=== PATIENT | female | born 1955 | race Caucasian/White ===

== ENCOUNTER 2024-01-23 11:29 | Outpatient (CLI) | payer MEDICARE, MEDICAID, SELFPAY ==
--- NOTE | 2024-01-23 11:38 | ECG_ITS ---
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 Measurements Intervals [place] Rate: 71 P: -62 MN: 114 QRS: 25 QRSD: 82 T: 30 QT: 389 QTc: 424 Interpretive Statements PROBABLE SINUS RHYTHM No previous ECG available for comparison Electronically Signed On 01-23-2024 14:16:08 CDT by Jack Beckett M.D.
[2024-01-23 12:03] LABS: Hematocrit 25.9 % (37.0-47.0); Hemoglobin 7.1 g/dL (12.0-15.0); Mean Corpuscular HGB Conc 27.4 g/dl (32-36); Mean Corpuscular Hemoglobin 23.1 pg (26-34); Mean Corpuscular Volume 84.1 fl (80-100); Platelet Count Result 279 k/mm3 (150-375); Red Blood Count 3.08 M/mm3 (4.2-5.4)
[2024-01-23 12:10] LABS: Appearance Urine Clear (Clear); Bacteria Urine None Seen /hpf; Bilirubin Urine Negative (Negative); Blood Urine Negative (Negative); Color Urine Yellow (Yellow); Glucose Urine UA Negative (Negative); Ketones Urine Negative (Negative); Leukocyte Esterase Ur Trace LEU/UL (Negative); Nitrate Urine Negative (Negative); Protein Urine Negative (Negative); RBC Urine 0-2 /hpf (0-2); Specific Grav Ur 1.014 (1.001-1.035); Squamous Epithelial Cell Urine Occasional /hpf (Few); WBC Urine 0-5 /hpf (0-3)
[2024-01-23 12:12] LABS: Prothrombin Time 13.9 Seconds (11.1-14.7)
[2024-01-23 12:12] LABS: Add Urine Microscopic? YES
[2024-01-23 12:13] LABS: Partial Thromboplastin Time 22.2 Seconds (22.3-36.8)
[2024-01-23 12:15] LABS: Anion Gap 6 mmol/L (4-12); Blood Urea Nitrogen 16 mg/dL (7-17); Calcium 9.2 mg/dL (8.4-10.2); Carbon Dioxide 28 mmol/L (22-30); Chloride 101 mmol/L (98-107); Estimated Glomerular Filt Rate 49; Glucose 102 mg/dL (65-110); Potassium 4.2 mmol/L (3.4-5.0); Sodium 135 mmol/L (137-145)
== END 2024-01-23 11:30 | disposition home or self-care (01) ==
LOC: ANHSURGERY 11:32
PROVIDERS: Visit Provider Neurological Surgery
DX: Z01.818 Encounter for other preprocedural examination (principal); M43.12 Spondylolisthesis, cervical region; I10 Essential (primary) hypertension
CPT/HCPCS: 36415; 80048; 81001; 81003; 85027; 85610; 85730; 86850; 86900; 86901; 93005

== ENCOUNTER 2024-05-29 12:35 | Outpatient (CLI) | payer MEDICARE, MEDICAID, SELFPAY ==
--- NOTE | ~2024-05-29 | XR_ITS ---
XR chest 2V Ordering provider: Sydney Farmer MD History: 69 years Female with . M43.12 - Spondylolisthesis, cervical region HX RU LOBE NODUL . Comparison: None. FINDINGS: MEDIASTINUM: The cardiac silhouette is not enlarged. LUNGS: No infiltrates, effusions or pneumothorax. OTHER: No free air under the diaphragm. Compression fracture is seen in T10 with loss of height of ab out 80%. Degenerative changes of the spine. IMPRESSION: No acute cardiopulmonary pathology. Reviewed, dictated and finalized at location A.
[2024-05-29 13:28] LABS: Partial Thromboplastin Time 23.9 Seconds (22.3-36.8)
[2024-05-29 13:30] LABS: Anion Gap 11 mmol/L (4-12); Blood Urea Nitrogen 24 mg/dL (7-17); Calcium 9.6 mg/dL (8.4-10.2); Carbon Dioxide 27 mmol/L (22-30); Chloride 96 mmol/L (98-107); Estimated Glomerular Filt Rate 37; Glucose 138 mg/dL (65-110); Potassium 4.3 mmol/L (3.4-5.0); Sodium 134 mmol/L (137-145)
[2024-05-29 13:31] LABS: Add Urine Microscopic? YES; Appearance Urine Cloudy (Clear); Bacteria Urine Rare /hpf; Bilirubin Urine Negative (Negative); Blood Urine Negative (Negative); Color Urine Yellow (Yellow); Glucose Urine UA Negative (Negative); Ketones Urine Negative (Negative); Leukocyte Esterase Ur 1+ LEU/UL (Negative); Need Manual Microscopic Reviewed; Nitrate Urine Negative (Negative); Protein Urine Trace mg/dL (Negative); RBC Urine 0-2 /hpf (0-2); Specific Grav Ur 1.013 (1.001-1.035); Squamous Epithelial Cell Urine Many /hpf (Few); Urobilinogen Urine 0.2 mg/dL (<2.0); WBC Urine 21-50 /hpf (0-3); pH Urine 5.5 (5.0-9.0)
== END 2024-05-29 12:36 | disposition home or self-care (01) ==
PROVIDERS: Visit Provider Neurological Surgery
DX: M43.12 Spondylolisthesis, cervical region (principal); Z01.818 Encounter for other preprocedural examination
CPT/HCPCS: 36415; 71046; 80048; 81001; 85610; 85730; 86850; 86900; 86901; 87086

== ENCOUNTER 2024-06-04 12:06 | Inpatient (IN) | payer MEDICARE, MEDICAID, SELFPAY ==
[2024-05-28 13:30] VITALS: BMI 35.5
--- NOTE | 2024-05-28 13:32 | PC.NURSE ---
Report to the Outpatient Waiting Room, entrance under the green pavilion located off [facility], at time _0800_ on date _[id number]_. Planned Procedure Time: _1000_.? Time changes happen often and if your time is changed the preop area will call you the afternoon before. - You and your visitor will be asked to self-screen and do not enter if you have any COVID symptoms. Please call surgeon if you need to reschedule. - A mask is optional within the hospital at this time. Patients may have clear liquids (water, carbonated beverages, clear teas, apple juice) until 3 hours prior to surgery with a maximum of 20 ounces. - No food from midnight until time of surgery and no smoking Take only the following medications with a SIP of water on the morning of surgery: ___Metoprolol, Fluoxetine and if needed Tramadol DO NOT STOP ANY OF YOUR OTHER PRESCRIPTION MEDICATIONS PRIOR TO SURGERY EXCEPT THE FOLLOWING Medications to discontinue per physician __All vitamins Date to take last hrtw____[id number] Please no make-up, nail mongolian, hairspray, perfume, deodorant, or body powder the day of surgery.? No jewelry (including any body piercings) or valuables the day of surgery, leave them at home.? Please take a shower or bath the night before, or the morning of, surgery with an antibacterial soap.? Wear comfortable, loose fitting clothing.? - Jewelry must be removed prior to entering the operating room.? Rings and piercings that are not removed may be cut off. - The hospital will not accept responsibility for valuables.? - Please leave all valuables, including medications, at home the day of surgery. If you are going home after surgery, a licensed local delivery driver must drive you home.? - NO public transportation without another adult if you receive anesthesia. - We recommend that an adult stay with you for 24 hours following discharge. - We also recommend that you do not drive, make important decision, drink alcoholic beverages, or take any drugs that were not prescribed by your health care provider for at least 24 hours after your discharge time. Follow any additional instructions given to you from your surgeon. Telephone instructions given to __Ernestina__and asked if any additional questions and then verbalized understanding. Patient advised to call surgeon office or pre surgery nurse liaison [phone] if any additional questions.
--- NOTE | 2024-06-03 17:59 | WPDANESEPP ---
Anes - Eval Pre Procedure Procedure: Operation Date: 06/04/24 07:30 Proposed Procedures p Posterior Cervical Decompression and Fusion C3-C7 - Sydney Farmer MD Date/Time: 06/03/24 17:59 Pre Op Diagnosis: cervical myelopathy,stenosis,spondylolisthesis Patient Data Age: 69 Gender: F Height: 1.57 m Weight: 88.2 kg Allergies Allergy/AdvReac Type Severity Reaction Status Date / Time celecoxib [From Celebrex] Allergy Mild Hives Verified 05/28/24 13:17 gabapentin AdvReac Severe Dizziness Verified 05/28/24 13:17 Home Medications Medication Instructions Recorded Confirmed Type allopurinol 100 mg tablet 100 mg PO DAILY 02/08/23 05/28/24 History atorvastatin 10 mg tablet 10 mg PO DAILY 02/08/23 05/28/24 History fluoxetine 20 mg capsule 60 mg PO DAILY 02/08/23 05/28/24 History lisinopril 10 mg tablet 10 mg PO DAILY 02/08/23 05/28/24 History metoprolol succinate 25 mg 25 mg PO DAILY 02/08/23 05/28/24 History tablet,extended release 24 hr omeprazole 20 mg capsule,delayed 20 mg PO EVERY OTHER DAY 02/08/23 05/28/24 History release cetirizine 10 mg capsule (Zyrtec) 10 mg PO DAILY PRN Congestion 06/22/23 05/28/24 History montelukast 10 mg tablet 10 mg PO HS 01/21/24 05/28/24 History tramadol 50 mg tablet 50 mg PO BID PRN Pain 01/21/24 05/28/24 History cholecalciferol (vitamin D3) 25 25 mcg PO WEEKLY 05/28/24 05/28/24 History mcg (1,000 unit) tablet cyanocobalamin (vitamin B-12) 100 100 mcg MONTHLY 05/28/24 05/28/24 History mcg/mL injection solution ferrous sulfate 324 mg (65 mg 324 mg PO DAILY 05/28/24 05/28/24 History iron) tablet,delayed release Patient hx anesthesia problems: none Family hx anesthesia problems: none Results Review: All pre-operative results and documents have been reviewed as part of the pre-operative evaluation. [facility] Past Medical History Medical History (Updated 06/03/24 @ 18:03 by Misael Cohen Jr., GARMENT CUTTER) Anemia Arthritis Cervical myelopathy COPD (chronic obstructive pulmonary disease) Crohn's colitis Depression GERD (gastroesophageal reflux disease) Gout History of smoking Hypertension Lumbago Lumbar stenosis Osteoporosis Spondylolisthesis, cervical region Family History Family History Mother Cancer ovarian cancer Grandparent Diabetes mellitus Father Hypertension Heart disease Cerebrovascular accident Sibling Heart disease Social History Social History Social History: Ernestina is very confident filling out medical forms. In the last 12 months she has received assistance from an organization or program with paying utility bills and care for elder or disabled. She does have an advance directive or living will. She is . The date of her last physical exam was October 2022. She is not sexually active and her control method was tubal ligation. The date of her last PAP test was 12/20/22 with normal results. Her last mammogram at [facility] was normal. She does not experience menopausal symptoms. She reports having a blood transfusion 02/07/2014. She denies currently using recreational or street drugs. Denies ever giving self street drugs with a needle. Denies eating a healthy diet and exercising regularly. Denies having frequent falls. Her current caffeine intake consists of 4 cups of cola/soda per day. Smoking packs per day: 1 Smoking cigarettes per day: 20.0 Years smoked: 52 Smoking pack-years: 52.00 Smoking status: Former smoker Tobacco type: cigarettes Second hand tobacco smoke exposure: Yes Smoking end date: 01/27/24 Additional smoking assessment comments: STATES CUTTING BACK AND NOT QUITE A FULL PACK/DAY NOW Alcohol intake: never Substance use: never Substance use type: does not use Do You Feel Safe in your Home?: Yes Lack of Transportation: No Lack of Food: Never True Current Hous
[2024-06-04] VITALS (15 sets, daily range): BP systolic 114–152; BP diastolic 45–80; PULSE 68–76; RESP 10–18; TEMP 35.3–36.4; O2SAT 93–100; BMI 36.3
--- NOTE | ~2024-06-04 | XR_ITS ---
EXAMINATION: XR fluoroscopy no charge DATE: 06/04/2024 11:46 INDICATION: Posterior cervical decompression and C3-C7 posterior spinal fusion TECHNIQUE: 2 fluoroscopic images of the cervical spine were obtained in the frontal and lateral proje ctions during procedure performed by Dr. Farmer. Radiologist was not present for the imaging or proc edure. The amount of fluoroscopy time used during this procedure was 0.3 minutes. Total DAP was 0.688 Gycm^2 COMPARISON: None. FINDINGS: C3-C6 laminectomies. Instrumented lower cervical posterior spinal fusion with bilateral vertical brady and lateral mass screw fixation extending from C3-C7 on the left and C4-C7 on the right. Likely endot renee tube projects of the cervical and upper thoracic trachea with distal tip collimated beyond th e margin of the field of imaging. IMPRESSION: 1. Fluoroscopy utilized during mid to lower cervical posterior decompression with instrumented C3-C7 posterior spinal fusion. See procedure note for further detail. Reviewed, dictated and finalized at location A. IMPRESSION: 1. Fluoroscopy utilized during mid to lower cervical posterior decompression wi th instrumented C3-C7 posterior spinal fusion. See procedure note for further d etail.
--- NOTE | 2024-06-04 06:37 | WPDANESEPPF ---
Anes - Initial Pre Proc Eval Procedure: Operation Date: 06/04/24 07:30 Proposed Procedures p Posterior Cervical Decompression and Fusion C3-C7 - Sydney Farmer MD Date/Time: 06/04/24 06:37 Surgeon: Sydney Farmer MD Pre Op Diagnosis: cervical myelopathy,stenosis,spondylolisthesis Patient Data Age: 69 Gender: F Height: 1.57 m Weight: 88.2 kg Allergies Allergy/AdvReac Type Severity Reaction Status Date / Time celecoxib [From Celebrex] Allergy Mild Hives Verified 05/28/24 13:17 gabapentin AdvReac Severe Dizziness Verified 05/28/24 13:17 Home Medications Medication Instructions Recorded Confirmed Type allopurinol 100 mg tablet 100 mg PO DAILY 02/08/23 05/28/24 History atorvastatin 10 mg tablet 10 mg PO DAILY 02/08/23 05/28/24 History fluoxetine 20 mg capsule 60 mg PO DAILY 02/08/23 05/28/24 History lisinopril 10 mg tablet 10 mg PO DAILY 02/08/23 05/28/24 History metoprolol succinate 25 mg 25 mg PO DAILY 02/08/23 05/28/24 History tablet,extended release 24 hr omeprazole 20 mg capsule,delayed 20 mg PO EVERY OTHER DAY 02/08/23 05/28/24 History release cetirizine 10 mg capsule (Zyrtec) 10 mg PO DAILY PRN Congestion 06/22/23 05/28/24 History montelukast 10 mg tablet 10 mg PO HS 01/21/24 05/28/24 History tramadol 50 mg tablet 50 mg PO BID PRN Pain 01/21/24 05/28/24 History cholecalciferol (vitamin D3) 25 25 mcg PO WEEKLY 05/28/24 05/28/24 History mcg (1,000 unit) tablet cyanocobalamin (vitamin B-12) 100 100 mcg MONTHLY 05/28/24 05/28/24 History mcg/mL injection solution ferrous sulfate 324 mg (65 mg 324 mg PO DAILY 05/28/24 05/28/24 History iron) tablet,delayed release Patient hx anesthesia problems: none Family hx anesthesia problems: none Results Review: All pre-operative results and documents have been reviewed as part of the pre-operative evaluation. [facility] Past Medical History Medical History Anemia Arthritis Cervical myelopathy COPD (chronic obstructive pulmonary disease) Crohn's colitis Depression GERD (gastroesophageal reflux disease) Gout History of smoking Hypertension Lumbago Lumbar stenosis Osteoporosis Spondylolisthesis, cervical region Family History Family History Mother Cancer ovarian cancer Grandparent Diabetes mellitus Father Hypertension Heart disease Cerebrovascular accident Sibling Heart disease Social History Social History Social History: Ernestina is very confident filling out medical forms. In the last 12 months she has received assistance from an organization or program with paying utility bills and care for elder or disabled. She does have an advance directive or living will. She is . The date of her last physical exam was October 2022. She is not sexually active and her control method was tubal ligation. The date of her last PAP test was 12/20/22 with normal results. Her last mammogram at [facility] was normal. She does not experience menopausal symptoms. She reports having a blood transfusion 02/07/2014. She denies currently using recreational or street drugs. Denies ever giving self street drugs with a needle. Denies eating a healthy diet and exercising regularly. Denies having frequent falls. Her current caffeine intake consists of 4 cups of cola/soda per day. Smoking packs per day: 1 Smoking cigarettes per day: 20.0 Years smoked: 52 Smoking pack-years: 52.00 Smoking status: Former smoker Tobacco type: cigarettes Second hand tobacco smoke exposure: Yes Smoking end date: 01/27/24 Additional smoking assessment comments: STATES CUTTING BACK AND NOT QUITE A FULL PACK/DAY NOW Alcohol intake: never Substance use: never Substance use type: does not use Do You Feel Safe in your Home?: Yes Lack of Transportation: No Lack of Food:
--- NOTE | 2024-06-04 07:16 | PM.IMHP ---
H&P: HPI History of Present Illness Date/Time: 06/04/24 07:16 Chief Complaint: cervical myelopathy Narrative: From 11/14: Ms. Sullivan is a 68-year-old female with history of ulcerative colitis, osteoporosis, hypertension, and hyperlipidemia who returns for follow-up of back and leg pain.? I had previously scheduled her for laminectomies L4-5 and L5-S1; however, in the fall, there is concern for a possible gynecologic malignancy given her development of postmenopausal bleeding.? She had AD and C which returned negative for malignancy, and she is following with more regular Pap smears for detection of this.? She did not require any chemo or radiation.? She also has had bilateral cataract surgery and has had 2 teeth removed due to infection.? She has been cleared by her other physicians to have her back surgery, so she returns today for follow-up. ? She describes pain in the lower back that radiates down the lateral aspects of the legs into the top and side of the foot, worse on the right side, which has now become constant in nature.? This worsens with standing and walking.? She has some paresthesias in the toes in particular.? She feels a generalized sense weakness.? She also reports some worsening pain in the neck that radiates down the left arm into the ulnar aspect of the hand as well as in the right arm to about the elbow.? She has numbness in the left hand and has noticed worsening with gripping objects and dropping things.? She reports some worsening balance issues. She attempted physical therapy last year which worsened her symptoms. ? She notably has been able to cut down quite a bit on her smoking and is now smoking 1 pack of cigarettes every 2-3 weeks.? She is continuing to work toward smoking cessation.? She had a recent DEXA scan that showed improvement in her osteoporosis to osteopenia.? She otherwise denies any changes in her medical issues. She states her mainframe analyst, Dr. Saleh at [facility], has cleared her for surgery. From 12/19: Since her last visit, she describes worsening issues with her balance. She has pain that radiates into the shoulders bilaterally, worse on the left side. She has numbness in her hands in a generalized sense of weakness. She has difficulty with gripping objects and dropping things. She denies any bowel or bladder changes. She has been able to essentially completely quit smoking. Review of Systems Review of Systems: All systems reviewed & are unremarkable except as noted in HPI and below PMFSH Past Medical History Medical History Anemia Arthritis Cervical myelopathy COPD (chronic obstructive pulmonary disease) Crohn's colitis Depression GERD (gastroesophageal reflux disease) Gout History of smoking Hypertension Lumbago Lumbar stenosis Osteoporosis Spondylolisthesis, cervical region Family History Family History Mother Cancer ovarian cancer Grandparent Diabetes mellitus Father Hypertension Heart disease Cerebrovascular accident Sibling Heart disease Social History Social History Social History: Ernestina is very confident filling out medical forms. In the last 12 months she has received assistance from an organization or program with paying utility bills and care for elder or disabled. She does have an advance directive or living will. She is . The date of her last physical exam was October 2022. She is not sexually active and her control method was tubal ligation. The date of her last PAP test was 12/20/22 with normal results. Her last mammogram at [facility] was normal. She does not experience menopausal symptoms. She reports having a blood transfusion 02/07/2014. She denies currently using recreational or street drugs. Denies ever giving self street drugs with a needle. Denies eating a healthy
--- NOTE | 2024-06-04 07:18 | WPDHPUPDATE1 ---
History and Physical Update Update Date/Time: 06/04/24 07:18 History and Physical has been reviewed, including an updated exam of the patient. There are NO changes in the patient's condition. Risks, benefits, and alternatives have been discussed and questions answered. Patient agrees to proceed with procedure.
[2024-06-04] MEDS: LACTATED RINGERS 1,000 ML 30 ML IV CONT (07:26)
[2024-06-04] MEDS: ceFAZolin 2 GM/D5W 50 ML 2 GM/50 ML BAG IVPB ×3 (07:41→21:17)
[2024-06-04] MEDS: BUPIVACAINE/EPINEPHRINE 0.5% 50 ML VIAL 20 ML INFILTRATE (08:41)
--- NOTE | 2024-06-04 11:23 | P.OPB_ITS ---
Procedure Note - Brief Procedure Note - Brief Date of procedure: 06/04/24 cervical myelopathy,stenosis,spondylolisthesis Post-op diagnosis: Same Procedure performed: Posterior cervical arthrodesis C3-7 Cervical laminectomies C3, C4, C5, and C6 Surgeon: Sydney Farmer MD Arbor Press Operator: Yeny Anesthesia: GETA Findings: Screw on left at C3 was left out due to poor purchase. Otherwise uncomplicated surgery Estimated blood loss (mL): 200 Drains: Yes Packing: No Pathology: None sent Complications: None Condition: Stable Disposition: PACU
[2024-06-04] MEDS: fentaNYL CITRATE INJ (*CRX) 100 MCG/2 ML VIAL 25 MCG IV PUSH ×4 (11:42→12:04)
--- NOTE | 2024-06-04 12:50 | ADMGEN ---
This patient, Ernestina Sullivan, was admitted to 2 Medical Room 242-. Patient/family oriented to hospital policies and general routines including ID bracelet, bed and alarms, visiting hours, pain management, procedures, bathroom and other care routines, personal items, smoking policy, room service/diet, and visiting hours. Information on how to activate the Rapid Response Team has been discussed. Patient/Family are encouraged to report perceived risks to care and to ask questions if they do not understand what they are told or what they should do.
[2024-06-04] MEDS: SODIUM CHLORIDE 0.9% IV 1,000 ML 100 ML IV CONT (13:49)
[2024-06-04] MEDS: ACETAMINOPHEN 500 MG TABLET 1000 MG PO ×3 (13:50→23:20)
[2024-06-04] MEDS: oxyCODONE HCL (*CRX) 5 MG TAB IR 10 MG PO (16:19)
--- NOTE | 2024-06-04 18:21 | W.PM.PROC2 ---
Procedure Note - Detailed Date of Procedure 06/04/24 Pre-op Diagnosis cervical myelopathy,stenosis,spondylolisthesis Post-op Diagnosis Same Procedure Performed 1. C3, C4, C5, C6, and C7 lateral mass instrumentation 2. C3-4, C4-5, C5-6, and C6-7 arthrodesis with autograft and allograft 3. C3, C4, C5, and C6 laminectomies 4. Use of C-arm for fluoroscopy Surgeon Sydney Farmer MD Key Attendant Yeny Anesthesia General Description of Procedure The patient was brought to the operating room where endotracheal anesthesia was induced. The [place] headholder was applied, and the patient was transferred to the operating table in the prone position. The head was secured to the bed. All pressure points were padded. The C-arm was used to evaluate the planned incision. The planned surgical site was prepped and draped in usual sterile fashion. Time out was conducted, and local anesthesia was injected. A 10-blade scalpel was used to make the incision. The subcutaneous tissue was dissected with the bovie until the spinous processes were encountered. Self-retaining retractors were placed. A clamp was placed on a spinous process which was confirmed to be the C3 level with the C-arm. The incision was extended inferiorly to better expose down to the inferior level. The muscles were elevated in a subperiosteal fashion to expose the laminae and lateral masses of C3 through C7 bilaterally. The facet joints were exposed and defined with the bovie, and the oversize load pilot escort holes for the lateral mass screws were created with the high-speed drill. On the right side, the hand drill was used to drill through the lateral mass to a depth of 12mm at C3. The trajectory was palpated with a ball-tip probe to ensure where were no breeches in the bone. The drill was then lengthened to 14mm. The 3.0mm tap was then passes. This was repeated at C4, C5, C6, and C7. Bone wax was placed over the screw holes. This was then repeated on the left side at C3, C4, C5, C6, and C7. No bone breaches were noted at the depth of 14mm. We then turned our attention to the laminectomies. The high-speed drill was used to create a trough through the laminae of C3, C4, C5, and C6. The posterior elements were elevated with a Leksell and Kerpaulieon rongeurs, and the bone was passed off to be morselized for autograft. The ligamentum flavum was elevated with the bone. Small residual pieces of ligamentum and bone were removed with the kerrison. The facet joints were decorticated with the drill.? We ensured hemostasis with the bipolar and Floseal. We next turned our attention to the lateral mass screws. The screw trajectories were palpated again with the balltip probe. 14 x 3.5mm screws were placed at each level bilaterally. However, the screw on the left side at C3 broke out of the tract, so this was ultimately left out. A 60mm brady was placed on the right, and a 50mm brady was placed on the left. The set screws were placed which were final tightened. The area was copiously irrigated. The bone and facets were decorticated. Autograft was placed lateral to the screws bilaterally and into the facets. A hemovac drain was placed in the epidural space and tunneled inferiorly. The muscle was approximated with 0 vicryl. The fascia was closed with 0 vicryl as well. The dermis was closed with 2-0 and 3-0 vicryl. The skin was closed with running 3-0 nylon. The drain was secured with a nylon as well. Sterile dressings were placed. The patient was then removed from the [place] headholder and returned supine. The patient was extubated and transferred to the PACU in stable condition. Billing codes: 59204, 62935, 55165 x 3, 21094 Estimated Blood Loss 200 Drains Yes Packing No Pathology None sent Complications None Condition Stable Disposition PACU [facility] Billing Surgery - Charge Forward: Surgery Billing
[2024-06-04] MEDS: DOCUSATE SODIUM 100 MG CAPSULE PO (21:15)
[2024-06-04] MEDS: MONTELUKAST SODIUM 10 MG TABLET PO (21:15)
[2024-06-05] VITALS (9 sets, daily range): BP systolic 108–145; BP diastolic 44–57; PULSE 66–74; RESP 16–20; TEMP 36.4–36.6; O2SAT 92–98
[2024-06-05] MEDS: SODIUM CHLORIDE 0.9% IV 1,000 ML 100 ML IV CONT (00:45)
[2024-06-05] MEDS: ceFAZolin 2 GM/D5W 50 ML 2 GM/50 ML BAG IVPB ×2 (05:30→13:28)
[2024-06-05] MEDS: ACETAMINOPHEN 500 MG TABLET 1000 MG PO ×3 (05:33→17:11)
[2024-06-05] MEDS: oxyCODONE HCL (*CRX) 5 MG TAB IR 10 MG PO (08:12)
[2024-06-05] MEDS: CYCLOBENZAPRINE HCL 10 MG TABLET PO (08:12)
[2024-06-05] MEDS: ATORVASTATIN 10 MG TABLET PO (08:14)
[2024-06-05] MEDS: lisinopriL 10 MG TABLET PO (08:14)
[2024-06-05] MEDS: allopurinoL 100 MG TABLET PO (08:14)
[2024-06-05] MEDS: PANTOPRAZOLE 40 MG TABLET PO (08:15)
[2024-06-05] MEDS: FLUoxetine HCL 20 MG CAPSULE 60 MG PO (08:15)
[2024-06-05] MEDS: DOCUSATE SODIUM 100 MG CAPSULE PO ×2 (08:15→20:24)
[2024-06-05] MEDS: METOPROLOL SUCCINATE EXT REL 25 MG TABCR PO (08:15)
--- NOTE | 2024-06-05 12:59 | WPDNEUROSGPN ---
Progress Note: A&P Assessment and Plan (1) Status post cervical arthrodesis: Code(s): Z98.1 - Arthrodesis status Status: Acute Plan -Remove hemovac drain today -Care Coordination setting up home health at her request -Anticipate discharge home tomorrow morning -Ok to shower tomorrow and get incision wet. Dressing can come off tomorrow too -Activity and wound care precautions reviewed at bedside Subjective Date/time seen: 06/05/24 12:59 Interval history: Doing very well without any significant neck pain. She reports pressure in her shoulders after sitting up for a long period of time. She reports improved strength and sensation in her hands. She was able to ambulate in the halls and also notes that she does not have the back and leg pain she normally experiences when walking. She is tolerating PO and denies any other complaints. Review of Systems Review of Systems: All systems reviewed & are unremarkable except as noted in HPI and below Exam Narrative: AOx4 Good strength in arms and legs Sensation intact Dressing c/d/i Objective Data Vital Signs Vital Signs: Vital Signs - 24 hr 06/04/24 13:00 06/04/24 13:18 06/04/24 14:18 Temperature 96.3 F L 95.7 F L Pulse Rate 74 74 Respiratory Rate 16 18 18 Blood Pressure 147/59 H Pulse Oximetry 95 93 93 Oxygen Delivery Room Air 06/04/24 14:58 06/04/24 15:39 06/04/24 18:18 Temperature 95.6 F L 97.5 F L Pulse Rate 74 74 Respiratory Rate 18 18 Blood Pressure 143/55 H 123/63 Pulse Oximetry 97 98 Oxygen Delivery Room Air 06/04/24 20:27 06/04/24 20:00 06/05/24 00:19 Temperature 97.6 F 97.7 F Pulse Rate 68 66 Respiratory Rate 16 16 Blood Pressure 134/54 L 113/57 L Pulse Oximetry 98 92 Oxygen Delivery Room Air 06/05/24 05:37 06/05/24 08:15 06/05/24 08:17 Temperature 97.6 F Pulse Rate 67 68 Respiratory Rate 16 16 Blood Pressure 108/51 L Pulse Oximetry 92 92 Oxygen Delivery Room Air 06/05/24 10:57 Temperature 97.6 F Pulse Rate 66 Respiratory Rate 19 Blood Pressure 127/51 L Pulse Oximetry 98 Oxygen Delivery Intake/Output Intake/Output: Intake & Output 06/02/24 06/03/24 06/04/24 06/05/24 23:59 23:59 23:59 23:59 Intake Total 836.7 1910.0 Output Total 95 Balance 741.7 1910.0 Meds/Results Medications: Active Medications Generic Name Dose Route Start Last Admin Trade Name Freq PRN Reason Stop Dose Admin Acetaminophen 1,000 mg 06/04/24 12:00 06/05/24 11:35 Acetaminophen 500 Mg Tablet PO 1,000 mg Q6HR EDWIN Administration Al Hydrox/Mg Hydrox/Simethicone 20 ml 06/04/24 11:18 Mag Hydrox/Al Hydrox/Simeth 30 Ml Udc PO Q4H PRN Indigestion/Heartburn Allopurinol 100 mg 06/05/24 09:00 06/05/24 08:14 Allopurinol 100 Mg Tablet PO 100 mg DAILY EDWIN Administration Atorvastatin Calcium 10 mg 06/05/24 09:00 06/05/24 08:14 Atorvastatin 10 Mg Tablet PO 10 mg DAILY EDWIN Administration Bisacodyl 10 mg 06/04/24 11:18 Bisacodyl 10 Mg Suppository RECTAL DAILY PRN Constipation Cyclobenzaprine HCl 10 mg 06/04/24 11:18 06/05/24 08:12 Cyclobenzaprine Hcl 10 Mg Tablet PO 10 mg TID PRN Administration Muscle Spasms Docusate Sodium 100 mg 06/04/24 21:00 06/05/24 08:15 Docusate Sodium 100 Mg Capsule PO 100 mg Q12HR EDWIN Administration Ferrous Sulfate 324 mg 06/05/24 08:00 06/05/24 08:16 Ferrous Sulfate [address] PO Not Given DAILY@0800 EDWIN Fluoxetine HCl 60 mg 06/05/24 09:00 06/05/24 08:15 Fluoxetine Hcl 20 Mg Capsule PO 60 mg DAILY EDWIN Administration Cefazolin Sodium 2 gm in 50 mls @ 100 mls/hr 06/04/24 14:00 06/05/24 06:00 Ancef 2 Gm/D5w 50 Ml IVPB Infused Q8HR EDWIN Infusion Lisinopril 10 mg 06/05/24 09:00 06/05/24 08:14 Lisinopril 10 Mg Tablet PO 10 mg DAILY EDWIN Administration Loratadine 10 mg 06/04/24 11:21 Loratadine 10 Mg Tablet PO DAILY PRN
[2024-06-05] MEDS: MONTELUKAST SODIUM 10 MG TABLET PO (20:24)
[2024-06-06] VITALS (7 sets, daily range): BP systolic 115–135; BP diastolic 34–53; PULSE 65–73; RESP 12–16; TEMP 36.2–37.1; O2SAT 92–97
[2024-06-06] MEDS: ACETAMINOPHEN 500 MG TABLET 1000 MG PO ×5 (00:17→23:54)
--- OUTSIDE RECORDS SUMMARY | 2024-06-06 05:11 | XMS_ITS | Clinical Summary ---
Author Name Unknown Address [address] [place] [address] Phone Organization [facility] Address [address] [place] [address] Phone Care Team Providers Care Meat Puller Name Role Phone HOLGER SPORTS PHYSIOLOGIST, LUIZ E Unavailable [phone] OD, SHERRIE Unavailable [phone] CORBY TRANSFORMER MAKER-C, MAYA A Unavailable [phone] MARSHALL TABARES, SHELBY Unavailable [phone] VIBHA WHLAKESHA-BC, EDVIN A Unavailable [phone] FRANSISCO TABARES, MEG Leggett Primary Care Provider [phone] LEXY TABARES, ALLY Miguel Unavailable [phone] Reason for Visit and Chief Complaint The Chief Complaint is: Patient presents for B12 injection, given with patient's supply Problems Includes: Problems addressed during this encounter and other active Problems Current Visit Onset Date Resolved Date Provider Conditio n Status Vitamin B12 Deficiency 02/04/2024 KATHIE HALE PA-C Active Past Visits Onset Date Resolved Date Provider Condition Status Postmenopausal Bleeding 06/22/2023 NOEMI CATES MD Active Last Documented On 06/22/2023 4:41PM ; [facility] Note: Unchanged Cervical Stenosis / Stricture 06/22/2023 NOEMI CATES MD Active Last Documented On 06/22/2023 4:41PM ; [facility] Note: Unchanged
--- OUTSIDE RECORDS SUMMARY | 2024-06-06 05:11 | XMS_ITS | Clinical Summary ---
Author Name Unknown Address [address] [place] [address] Phone Organization [facility] Address [address] [place] [address] Phone Care Team Providers Care Valuation Consultant Name Role Phone HOLGER CROWDER, LUIZ Leggett Unavailable [phone] OD, SHERRIE Unavailable [phone] CORBY CAUL FAT PULLER-C, MAYA King Unavailable [phone] MARSHALL TABARES, SHELBY Unavailable [phone] VIBHA LAKESHA-BC, EDVIN King Unavailable [phone] FRANSISCO TABARES, MEG Leggett Primary Care Provider [phone] LEXY TABARES, ALLY Miguel Unavailable [phone] Reason for Visit and Chief Complaint The Chief Complaint is: Patient c/o fatigue and dizziness over the past week. She states that all she wants to do is sleep. She reports that her arms feel limp . Patient's HgB was 7.1, which was toolow for back surgery with Dr. Farmer Problems Includes: Problems addressed during this encounter and other active Problems Current Visit Onset Date Resolved Date Provider Conditio n Status Iron Deficiency Anemia 02/22/2023 PELON IN A CORBY CAUL FAT PULLER-C Active Past Visits Onset Date Resolved Date Provider Condition Status Vitamin B12 Deficiency 02/04/2024 KATHIE RIVASC Active
--- OUTSIDE RECORDS SUMMARY | 2024-06-06 05:11 | XMS_ITS | Clinical Summary ---
Author Name Unknown Address [address] [place] [address] Phone Organization [facility] Address [address] [place] [address] Phone Care Team Providers Care Vascular Manager Name Role Phone HOLGER CROWDER, LUIZ Leggett Unavailable [phone] OD, SHERRIE Unavailable [phone] CORBY BLANC-C, MAYA King Unavailable [phone] MARSHALL TABARES, SHELBY Unavailable [phone] VIBHA PAYNE-BC, EDVIN King Unavailable [phone] FRANSISCO TABARES, MEG Leggett Primary Care Provider [phone] LEXY TABARES, ALLY Miguel Unavailable [phone] Reason for Visit and Chief Complaint * PHONE CALL Problems Includes: Problems addressed during this encounter and other active Problems Current Visit Onset Date Resolved Date Provider Conditio n Status Spinal Stenosis Cervical 02/22/2023 MAYA BLANC-C Active Past Visits Onset Date Resolved Date Provider Condition Status Vitamin B12 Deficiency 02/04/2024 KATHIE HALE PA-C Active
--- OUTSIDE RECORDS SUMMARY | 2024-06-06 05:11 | XMS_ITS ---
Care Plan - [facility] Created on: June 06, 2024 BROOKLYN MATTHEWS : 1955 Sex: Female Author Name Unknown Address [address] [place] [address] Phone Organization [facility] Address [address] [place] [address] Phone Care Team Providers Care Game Show Host Name Role Phone HOLGER CROWDER, LUIZ E Unavailable [phone] OD, SHERRIE Unavailable [phone] CORBY SET UP TECHNICIAN-C, MAYA A Unavailable [phone] MARSHALL TABARES, SHELBY Unavailable [phone] VIBHA PAYNE-BC, EDVIN King Unavailable [phone] FARNSISCO TABARES, MEG Leggett Primary Care Provider [phone] LEXY TABARES, ALLY Miguel Unavailable [phone]
--- OUTSIDE RECORDS SUMMARY | 2024-06-06 05:11 | XMS_ITS ---
Author Name Unknown Address [address] [place] [address] Phone Organization [facility] Address [address] [place] [address] Phone Care Team Providers Care Scaffolder Name Role Phone HOLGER COMMERCIAL CREDIT SPECIALIST, LUIZ E Unavailable [phone] OD, SHERRIE Unavailable [phone] CORBY ASSEMBLY STOCK SUPERVISOR-C, MAYA A Unavailable [phone] MARSHALL TABARES, SHELBY Unavailable [phone] VIBHA WHLAKESHA-BC, EDVIN A Unavailable +[phone] FRANSISCO TABARES, MEG Leggett Primary Care Provider [phone] LEXY TABARES, ALLY Miguel Unavailable [phone] Reason for Referral Date Encounter Description Provider Reason for Referral 05/25/14 PROBLEM VISIT TESFAYE HDEZ MD Reque st Consultation By Specialist Problems Includes: Active, inactive, and resolved Problems All Visits Onset Date Resolved Date Provider Condition S tatus Vitamin B12 Deficiency 02/04/2024 KATHIE HLAE PA-C Active
--- OUTSIDE RECORDS SUMMARY | 2024-06-06 05:11 | XMS_ITS | Clinical Summary ---
Author Name Unknown Address [address] [place] [address] Phone Organization [facility] Address [address] [place] [address] Phone Care Team Providers Care Pattern Painter Name Role Phone HOLGER CROWDER, LUIZ E Unavailable [phone] OD, SHERRIE Unavailable [phone] CORBY FUND DIRECTOR-C, MAYA A Unavailable [phone] MARSHALL TABARES, SHELBY Unavailable [phone] VIBHA WHLAKESHA-BC, EDVIN A Unavailable +[phone] FRANSISCO TABARES, MEG Leggett Primary Care Provider [phone] LEXY TABARES, ALLY Miguel Unavailable [phone] Reason for Visit and Chief Complaint * PHONE CALL Problems Includes: Problems addressed during this encounter and other active Problems All Visits Onset Date Resolved Date Provider Condition S tatus Vitamin B12 Deficiency 02/04/2024 KATHIE HALE PA-C Active
--- OUTSIDE RECORDS SUMMARY | 2024-06-06 05:11 | XMS_ITS | Clinical Summary ---
Author Name Unknown Address [address] [place] [address] Phone Organization [facility] Address [address] [place] [address] Phone Care Team Providers Care Pre Press Manager Name Role Phone HOLGER TURFGRASS MANAGEMENT PROFESSOR, LUIZ Leggett Unavailable [phone] OD, SHERRIE Unavailable [phone] CORBY CARDIAC/VASCULAR SONOGRAPHER-C, MAYA A Unavailable +[phone] MARSHALL TABARES, SHELBY Unavailable [phone] VIBHA WHLAKESHA-BC, EDVIN A Unavailable +[phone] FRANSISCO TABARES, MEG Leggett Primary Care Provider [phone] LEXY TABARES, ALLY Miguel Unavailable [phone] Reason for Visit and Chief Complaint The Chief Complaint is: Patient states that she has been having allergies for a long time , meaning years, but otc daily antihistamine/flonase doesn't help. She c/o drainage, runny nose, cough Problems Includes: Problems addressed during this encounter and other active Problems All Visits Onset Date Resolved Date Provider Condition S tatus Vitamin B12 Deficiency 02/04/2024 KATHIE HALE PA-C Active
--- OUTSIDE RECORDS SUMMARY | 2024-06-06 05:12 | XMS_ITS ---
Author Name Unknown Organization Unknown [facility] No information ASSESSMENT No information CHIEF COMPLAINT No information MEDICATIONS No information OBJECTIVE DATA No information PHYSICAL EXAMINATION No information TREATMENT PLAN Planned Care Start Date Provider Encounter for Check-up [id number] [facility] PROBLEMS No information RESULTS No information REVIEW OF SYSTEMS No information SUBJECTIVE DATA No information VITAL SIGNS No information
[2024-06-06] MEDS: ENOXAPARIN 40 MG/0.4 ML SYRINGE SUB-Q (08:21)
[2024-06-06] MEDS: DOCUSATE SODIUM 100 MG CAPSULE PO (08:22)
[2024-06-06] MEDS: METOPROLOL SUCCINATE EXT REL 25 MG TABCR PO (08:23)
[2024-06-06] MEDS: lisinopriL 10 MG TABLET PO (08:24)
[2024-06-06] MEDS: ATORVASTATIN 10 MG TABLET PO (08:24)
[2024-06-06] MEDS: allopurinoL 100 MG TABLET PO (08:24)
[2024-06-06] MEDS: FLUoxetine HCL 20 MG CAPSULE 60 MG PO (08:25)
[2024-06-06] MEDS: FERROUS SULFATE 325 MG TABLET DR PO (08:26)
--- NOTE | 2024-06-06 09:11 | PCPTNOTE ---
Attempted to see patient for PT, however patient was eating breakfast.
[2024-06-06 11:51] LABS: Hematocrit 28.6 % (37.0-47.0); Hemoglobin 8.8 g/dL (12.0-15.0)
[2024-06-06] MEDS: MONTELUKAST SODIUM 10 MG TABLET PO (21:17)
[2024-06-07 01:32] VITALS: BP 121/49; PULSE 64; RESP 17; TEMP 36.6; O2SAT 96
[2024-06-07 04:54] VITALS: BP 121/50; PULSE 64; RESP 17; TEMP 36.7; O2SAT 94
[2024-06-07] MEDS: ACETAMINOPHEN 500 MG TABLET 1000 MG PO (06:16)
--- NOTE | 2024-06-07 08:35 | PM.DS ---
DS: Admitting Diagnosis Discharge Date June 07, 2024 Admitting Diagnosis Cervical myelopathy DS: Summary Hospital Course Hospital Course: Ms. Sullivan presented for surgery on June 04; please see the op note for more details. She was transferred to the floor. She worked with therapy. Her drain was removed on POD1. On POD2, she had some dizziness for which a hemoglobin and blood pressure were checked. This resolved without intervention, and she was determined ready for discharge home with home health on POD3. Time Spent with Patient Time attestation: Total time spent providing and/or coordinating discharge services: DS: Data Data Completed and Pending Labs on day of discharge: Labs from last 24 hours 06/06/24 11:44 Hgb 8.8 L Hct 28.6 L Discharge Plan Discharge Patient Disposition: Home Health Service Activity: other - see discharge instructions Diet: as tolerated Wound Care Instructions: follow printed instructions Discharge Instructions: Per Care Coordination: [facility] ([facility]) for physical therapy [phone] they will call you regarding your first visit. *RN please fax D/C orders to [phone]. Discharge Instructions Procedure: Posterior cervical decompression and fusion Your doctor removed bone and ligament to decompress your spinal cord and nerve roots, and then placed hardware to stabilize the spine. Here are some instructions to follow upon discharge from the hospital to help in your recovery. Activity: Unless released by your doctor, you should not return to work. You should rest at home and let your body heal. Taking short walks is encouraged, but avoid strenuous exercise. Do not jog, run, lift weights, bicycle, or participate in other exercises unless specifically allowed by your doctor. Most importantly, avoid lifting objects heavier than a telephone book or a carton of milk as this places a strain on your neck. If possible, avoid household activities that involve lifting such as laundry, grocery shopping, or childcare. Try to arrange for help from friends and family for these activities while your neck heals. You should not drive for 7-10 days, until you are both off of narcotics and your neck has loosened up enough to safely check your blind spots. You may remove your dressing on Sunday and leave it open to air. You may shower starting on post-operative day 2 (Sunday). After showering, lightly dab your wound dry. Do not take baths or sit in a hot tub or pool until approved by your doctor. You may get your incision wet with soap and water, but do not submerge the incision under water. DO NOT SMOKE TOBACCO. Smoking has been proven to interfere with the normal healing of the bones in your neck. Smoking will dramatically reduce the success rate of your surgery. Diet: You can return to your usual diet, unless instructed otherwise by your doctor. Medications: You should resume taking all of your normal medications unless instructed otherwise by your doctor. You may take Tylenol 1000mg every 6 hours as needed for pain. If your pain is still uncontrolled after Tylenol, then take oxycodone. You may also take flexeril for neck pain and muscle spasms every 8 hours. However, you should not take anti-inflammatory medications (such as Motrin, Advil, ibuprofen, naproxen) unless specifically approved by your doctor. These medications can prevent your bones from healing properly after surgery. If you have questions about your normal medications (for example, those prescribed for high blood pressure), you should contact your primary care doctor. You will be given a prescription for pain medications and possibly a laxative, as pain medications can cause constipation. Take the pain medication as instructed. If your pain is not reasonably controlled by the medications, contact your doctor's office. Follow-up appointment: You should already have a follow-up appointment scheduled with
[2024-06-07 09:11] VITALS: PULSE 70
[2024-06-07] MEDS: lisinopriL 10 MG TABLET PO (09:11)
[2024-06-07] MEDS: allopurinoL 100 MG TABLET PO (09:11)
[2024-06-07] MEDS: PANTOPRAZOLE 40 MG TABLET PO (09:11)
[2024-06-07] MEDS: METOPROLOL SUCCINATE EXT REL 25 MG TABCR PO (09:11)
[2024-06-07] MEDS: ATORVASTATIN 10 MG TABLET PO (09:11)
[2024-06-07] MEDS: FLUoxetine HCL 20 MG CAPSULE 60 MG PO (09:11)
[2024-06-07] MEDS: FERROUS SULFATE 325 MG TABLET DR PO (09:12)
== END 2024-06-07 10:20 | disposition home health service (06) | DRG 472 ==
LOC: ANH2MED 06-05 12:47
PROVIDERS: Admitting Provider Neurological Surgery; Visit Provider Neurological Surgery
PROC: 0RG2071 Fusion of 2 or more Cervical Vertebral Joints with Autologous Tissue Substitute, Posterior Approach, Posterior Column, Open Approach (ICD-10-PCS; principal; 2024-06-04 07:30)
DX: M48.02 Spinal stenosis, cervical region (principal); G99.2 Myelopathy in diseases classified elsewhere; M43.12 Spondylolisthesis, cervical region; D64.9 Anemia, unspecified; M19.90 Unspecified osteoarthritis, unspecified site; J44.9 Chronic obstructive pulmonary disease, unspecified; K21.9 Gastro-esophageal reflux disease without esophagitis; M81.0 Age-related osteoporosis without current pathological fracture; E78.5 Hyperlipidemia, unspecified; M85.80 Other specified disorders of bone density and structure, unspecified site; E66.9 Obesity, unspecified; Z68.36 Body mass index [BMI] 36.0-36.9, adult; Z87.891 Personal history of nicotine dependence
CPT/HCPCS: 36415; 85014; 85018; 97161; 97165; 97530; 97535; 99199; A9270; C1713; J0690; J1100; J1171; J1596; J1650; J2003; J2371; J2405; J2704; J3010; J7030; J7120

== ENCOUNTER 2025-02-02 13:54 | Outpatient (CLI) | payer MEDICARE, MEDICAID, SELFPAY ==
--- NOTE | ~2025-02-02 | XR_ITS ---
CHEST RADIOGRAPH, PA AND LATERAL CLINICAL HISTORY: M43.16 - Spondylolisthesis, lumbar region . COMPARISON: 05/29/2024 TECHNIQUE: PA and lateral views of the chest. FINDINGS The cardiomediastinal silhouette is unremarkable. The lungs are clear. IMPRESSION: No focal infiltrate or effusion. Reviewed, dictated and finalized at location A.
--- NOTE | ~2025-02-02 | CT_ITS ---
EXAMINATION: [id number] DATE: 02/02/2025 15:37 INDICATION: MR spinal stenosis TECHNIQUE: Computed tomography (CT) of the lumbar spine was performed without intravenous contrast. A utomated exposure control and iterative reconstruction technique were employed. The dose-length produ ct was 1284.12 mGy-cm. COMPARISON: None FINDINGS: 1-2 mm anterolisthesis L3 on L4. 6 mm anterolisthesis L4 on L5. Chronic appearing minimal likely phys iologic anterior wedging at T11. Lumbar vertebral body heights are normal. No fracture. Moderate disc height loss with vacuum phenomena at L4-L5. Mild disc height loss at L3-L4 and L5-S1. Partially visu alized 3 cm exophytic left renal cyst. There is also an 8 mm hyperintense proteinaceous/hemorrhagic c yst at the upper pole the left kidney. There are few additional smaller lesions measuring 1.4 similar to lower pole of left kidney and 1.3 cm the upper pole the right kidney which demonstrates intermedi ate attenuation which remain indeterminate but statistically most likely to represent additional prot einaceous/hemorrhagic cyst. Cholecystectomy clips the gallbladder fossa. Bilateral tubal ligation cli ps situated between the otherwise normal-appearing uterus and ovaries. The following disc levels are specifically discussed: T12-L1: There is mild right and moderate left facet joint osteoarthritis. There is no neural foramina l stenosis. There is no central canal stenosis. L1-L2: There is moderate bilateral facet joint osteoarthritis. There is no neural foraminal stenosis. There is no central canal stenosis. L2-L3: Disc is bulging. There is moderate left and mild to moderate right facet joint osteoarthritis. There is mild bilateral neural foraminal stenosis. There is mild central canal stenosis. L3-L4: Disc is bulging. There is hypertrophy of the ligamentum flavum. There is severe bilateral face t joint osteoarthritis. There is moderate bilateral neural foraminal stenosis. There is severe centra l canal stenosis. L4-L5: Disc is bulging. There is hypertrophy of the ligamentum flavum. There is severe bilateral face t joint osteoarthritis. There is moderate bilateral neural foraminal stenosis. There is severe centra l canal stenosis. L5-S1: Disc is bulging. There is moderate right and severe left facet joint osteoarthritis. There is bilateral neural foraminal stenosis. There is severe left-sided and moderate right-sided extra forami nal stenosis along the course of the bilateral L5 nerve roots where they travels between the base of the L5 transverse processes and prominent posterior lateral L5 inferior endplate osteophytes. There i s mild central canal stenosis. IMPRESSION: 1. Moderate lower lumbar predominant spondylosis most notable for 6 mm anterolisthesis L4 on L5 and s evere central canal stenosis at L3-L4 and L4-L5. 2. Bilateral renal cysts with a couple additional small indeterminate renal lesions statistically mos t likely to represent proteinaceous/hemorrhagic cysts although solid neoplasm could not be excluded a nd would consider further evaluation with pre and postcontrast MRI or CT. Reviewed, dictated and finalized at location B. IMPRESSION: 1. Moderate lower lumbar predominant spondylosis most notable for 6 mm anteroli sthesis L4 on L5 and severe central canal stenosis at L3-L4 and L4-L5. 2. Bilateral renal cysts with a couple additional small indeterminate renal les ions statistically most likely to represent proteinaceous/hemorrhagic cysts alt comfort solid neoplasm could not be excluded and would consider further evaluatio n with pre and postcontrast MRI or CT.
--- NOTE | 2025-02-02 14:53 | ECG_ITS ---
Test Date: 2025-02-02 15:10:30 Measurements Intervals [place] Rate: 71 P: 0 FL: 0 QRS: 24 QRSD: 89 T: 45 QT: 403 QTc: 439 Interpretive Statements SINUS OR ECTOPIC ATRIAL RHYTHM BASELINE ARTIFACT- I, II, III, AVR, AVL, AVF, V1-V6 BORDERLINE ECG Compared to ECG 01/23/2024 11:42:10 No significant changes Electronically Signed On 02-02-2025 16:13:14 CDT by Jose Damon D.O.
--- OUTSIDE RECORDS SUMMARY | 2025-02-02 15:08 | XMS_ITS | Referral Summary ---
Author Organization [facility] Address [address] [place] [address] Care Team Providers Care Brick Burner Head Name Role Phone Card, La Nena Oliver NP Unavailable [phone] Darren Bower MD Unavailable Jeny Ho Primary Care Provider Encounters Date Type Department Care Team Description 11/20/2024 12:58 PM CDT Anesthesia Event [address] [address] Sachin Ovalle DO 11/20/2024 1:30 PM CDT - 11/20/2024 2:00 PM CDT Surgery [address] [address] Alexi Britt MD COLON CONTROL BLEEDING 11/20/2024 11:36 AM CDT - 11/20/2024 2:15 PM CDT Hospital Encounter [address] [address] Alexi Britt MD Discharge Disposition: Discharge to [...] 11/01/19 23 Active allopurinoL (ZYLOPRIM) 100 mg tabletIndications:[place] laney blood uric acid level TAKE 1 [...] 07/16/2022 Assessment & Plan (07/16/2022 7:04 PM SPECIALTY THERAPIST): X-ray of lumbar spine. Titrating dose of gabapentin. Referral to pain management Chronic neck pain 07/16/2022 Assessment & Plan (07/16/2022 7:04 PM SPECIALTY THERAPIST): X-ray the cervical spine. Will trial gabapentin to titrating dose of 302-3 times daily. Referral to pain management Gross hematuria 06/13/2022 Assessment & Plan (06/15/2022 8:13 PM CDT): Labs ordered, will follow. Dependent edema 04/13/2022 Personal history of colonic polyps 03/31/2022 Overview (03/31/2022): Added automatically from request for surgery [id number] Arthralgia of multiple sites 02/12/2022 Assessment & [...] Assessment & Plan (12/27/2020 2:53 PM CDT): Nrinv-dy-bjhgll exercises encouraged. Handout given. Recommended physical therapy, [...] counseling. Assessment & Plan (07/16/2022 7:05 PM SPECIALTY THERAPIST): BMI Follow-up includes: exercise counseling. Assessment & [...] GI. Assessment & Plan (09/19/2019 1:19 PM SPECIALTY THERAPIST): Pt says abdominal pain, diarrhea, and nausea resolved a few days after last office visit and did not need to take budesonide. She is taking Lialda 2.4 g daily and doing well. Continue current regimen. Assessment & Plan (08/22/2019 1:31 PM SPECIALTY THERAPIST): Pt restarted on medication about 3 weeks [...] 06/16/2022 LABPLAT 439 (H) 06/16/2022 Stable at [facility] time - states that it was normal ED wwill need to get records from [place] Assessment & Plan (06/15/2022 8:16 PM CDT): [...] hematology. Assessment & Plan (08/22/2019 1:04 PM SPECIALTY THERAPIST): EGD and colonoscopy ruled out GI bleed as cause for anemia. Pt says she follows with Dr. Bower at [facility] for her anemia. No further workup [...] (03/31/2022): Added automatically from request for surgery [id number] Elevated blood uric acid level 01/13/2022 02/10/2022 [...] 12/18/2019 Assessment & Plan (09/19/2019 12:39 PM SPECIALTY THERAPIST): Repeat hepatic function panel at last appointment showed normal LFT's. Assessment & Plan (08/22/2019 1:34 PM SPECIALTY THERAPIST): Pt says Mariel Mercedes had drawn labs in Jun 2019 and saw elevated alk phos. Appears alk phos then was 246. Will repeat hepatic function panel today. Nausea 08/22/2019 09/19/2019 Assessment & Plan (08/22/2019 1:35 PM SPECIALTY THERAPIST): Having some nausea with BM but no vomiting. Likely related to exacerbation of colitis. Diarrhea 08/22/2019 09/19/2019 Assessment & Plan (08/22/2019 1:33 PM SPECIALTY THERAPIST): Pt says she can have up to [...] on file Legal Sex Female 8:33 AM SPECIALTY THERAPIST Gender Identity Female 05/14/2024 12:29 PM CDT [...] Female Attending MD: Alexi Britt M.D. Room: [facility] ENDOSCOPY ROOM 1 Note Status: Finalized Patient [...] passed under direct vision. The Endoscope GIF-H190 [id number] was introduced through the mouth, and advanced [...] 11:43 AM Procedure Code(s): --- Professional --- 01343, Esophagogastroduodenoscopy, flexible, transoral; diagnostic, including collection of specimen(s) by brushing or washing, when performed (separate procedure) Diagnosis Code(s): --- Professional --- D50.0, Iron deficiency anemia secondary to blood loss (chronic) D50.9, Iron deficiency anemia, unspecified CPT copyright 2020 [employer]. All rights reserved. The codes documented in this report are preliminary and upon coder operator reviewmay be revised to meet current compliance requirements. Recognized by the [place] [employer] for promoting quality in endoscopy Alexi Britt MD ENDOSCOPY PROCEDURES Final Result * Colonoscopy (11/20/2024 11:42 AM CDT) Anatomical Region Laterality Modality Other Narrative Procedure Note Alexi Britt MD - 11/20/2024 11:42 AM CDT [facility] Patient Name: Ernestina Sullivan Procedure Date: 11/20/2024 11:42 AM Date of : 1955 Admit Type: Outpatient Age: 69 Gender: Female Attending MD: Alexi Britt M.D. Room: [facility] ENDOSCOPY ROOM 1 Note Status: Finalized Patient [...] under direct vision. The Pediatric Colonoscope PCF-H190L [id number] was introducedthrough the anus and advanced to [...] 11:42 AM Procedure Code(s): --- Professional --- 28058, Colonoscopy, flexible; with control of bleeding, any method Diagnosis Code(s): --- Professional --- K64.8, Other hemorrhoids K55.20, Angiodysplasia of colon without hemorrhage CPT copyright 2020 [employer]. All rights reserved. The codes documented in this report are preliminary and upon coder operator reviewmay be revised to meet current compliance requirements. Recognized by the [place] [employer] for promoting quality [...] Dual x-ray absorptiometry (DEXA) was performed using [employer] system. GENERAL GUIDELINES: According to WHO guidelines, [...] Dual x-ray absorptiometry (DEXA) was performed using [employer] system. GENERAL GUIDELINES: According to WHO guidelines, [...] last revised on 2019. Testing performed by: [facility], [address] [place] [address], [place]., [address] Blood specimen (specimen) 12/23/2019 10:12 AM CDT 12/23/2019 1:46 PM CDT Vaishnavi Crum DO LAB MICROBIOLOGY - GENERAL ORDERABLES Final Result [facility] ([place]) 1 [facility] [place] [address] from Last 3 Months or Most Recently Relevant to Health Maintenance [place] [address] [employer] [facility] ADVANTRA Advance Directives For more information, please contact: [phone] * Full Code (Latest Code Status on [...] 9:10 AM 01/03/2019 4:13 PM Care Teams Brick Burner Head Relationship Specialty Start Date End Date Jeny Ho PA [address] [place] [address] PCP - General Physician Gizzard Puller 04/10/24 La Nena Figueroa NP Nurse Practitioner Gastroenterology 12/18/19 Darren Bower MD [address] [address] Referring Physician Hematology and Oncology 12/18/19
--- OUTSIDE RECORDS SUMMARY | 2025-02-02 15:08 | XMS_ITS | CONTINUITY OF CARE DOCUMENT ---
Author Name nelia trudyelizabeth Address Unknown Organization [facility] Address [address] [place] [address] Phone [phone] Care Team Providers Care Affirmative Action Specialist Name Role Phone Delfino TABARES, All Unavailable [phone] Jayson Butler MD Unavailable VAISHNAVI ZARAGOZA MD Unavailable [phone] PROBLEMS Condition Status Date Provider Notes Lung nodule active All Saleh MD Anemia active Hali A Childers MANAGER PRODUCT MANAGEMENT (Hist ory of) Hyperlipidemia active Hali A Childers MANAGER PRODUCT MANAGEMENT Hypertension active Hali A Childers MANAGER PRODUCT MANAGEMENT Syncope and collapse active Hali A Steel e MANAGER PRODUCT MANAGEMENT Edema - localized active Hali A Childers N P Tobacco abuse active Hali A Childers MANAGER PRODUCT MANAGEMENT Coronary atherosclerosis active All Saleh MD ENCOUNTERS Date Type Provider Location Encounter Diag nosis - In-person encounter Office Visit All Saleh MD [facility] - In-person encounter Office Visit All Saleh MD [facility] Coronary atherosclerosis - In-person encounter Office Visit All Saleh MD [facility] AnemiaHyperlipidemiaHypertensionSyncope and collapseEdema - localizedTobacco abuse [...] headley pulse rate 86 /min Olivia Debbieneftali [facility] weight E&M 210 [lb_av] Olivia Ochoaflorie [facility] height E&M 61 [in_i] Olivia Ochoaflorie er [...] MD FAMILY HISTORY Family Member Condition Mother PR female <65 INSURANCE PROVIDERS Payer name Policy type / Coverage type [place] red green party ID [facility] Medicaid 3 [id number] MARITO PEREZ HMO Commercial insurance co radha [id number] ADVANCE DIRECTIVES Name Date DISCUSSED - NO DECISION MADE TREATMENT PLAN Date Name Performer [id number],C,f/u recommend ed in 6 months All Delfino TABARES [id number],C,c acs 411 w ill [facility] [id number],C, H er updated medication list for this problem includes: Atorvastatin 10 Mg Tablet (Atorvastatin) ..... Take 1 tablet by mouth every evening All Das [id number],C,bp [id number],C,n o more episodes b will with med changes c heck ccta as high risk score and has significant LM plaque also All Das [id number],C,u rged to quit l dct [facility] [id number],C,1 . No evidence of a deep vein thrombosis of the lower extremities bilaterally. 2 . Significant venous insufficiency of the great saphenous vein bilaterally. 3 . Possible monophasic flow in sfj b/l - more so on left side. mild edema if up on her feet for a long time a dvised re compression stockings normal uacr and tsh All Das [id number],C,r ecommend that she quits smoking c onsider CACS [facility] [id number],C, B P today: 99/68 All Das [id number],C,H as been having syncopal episodes, most recent in October 2022 with sudden syncope without pre syncopal sxs such as dizziness etc. Since that last episode she has not had any further episodes. Was at [facility] and they told her she was dehydrated gave fluids and sent home. will check echo, TSH, w ill stop the lasix, and decrease her lisinopril to 10 mg once daily since her BP is on the low side Delfino TABARES [id number],C,r ecommend that she quits smoking c onsider [facility] Hali Childers MANAGER PRODUCT MANAGEMENT [id number],C,c mplaints of LE swelling which she was taking lasix for it. w ill check TSH, echo,electrolytes, and venous dopplers, Hali Childers LAKESHA [id number],C,w hen at the hospital for her syncope she was told her blood counts were normal Hali Childers LAKESHA [id number],C,on statin Serena gonzalez Childers LAKESHA [id number],C, B P today: C onsider the [facility] Hali Childers MANAGER PRODUCT MANAGEMENT [id number],C,H as been having syncopal episodes, most recent in October 2022 with sudden syncope without pre syncopal sxs such as dizziness etc. Since that last episode she has not had any further episodes. Was at [facility] and they told her she was dehydrated [...] re compression stockings normal uacr and tsh Laldiaz Saleh MD Cardiology:recommend that she quits smoking c onsider CACS Alldiaz Saleh MD Cardiology: B P today: eep Delfino TABARES Cardiology:Has been having syncopal episodes, most recent in October 2022 with sudden syncope without pre syncopal sxs such as dizziness etc. Since that last episode she has not had any further episodes. Was at [facility] and they told her she was dehydrated gave fluids and sent home. will check echo, TSH, w ill stop the lasix, and decrease her lisinopril to 10 mg once daily since her BP is on the low side Alldiaz Saleh MD Cardiology:recommend that she quits smoking c onsider [facility] Hali Childers NP Cardiology:cmplaints of LE swelling which she was taking lasix for it. w ill check TSH, echo,electrolytes, and venous dopplers, Hali Childers NP Cardiology:when at [facility] for her syncope she was told her blood counts were normal Hali Childers NP Cardiology:on statin Hali hemphill NP Cardiology: B P today: C onsider the [facility] Hali Childers MANAGER PRODUCT MANAGEMENT Cardiology:Has been having syncopal episodes, most recent in October 2022 with sudden syncope without pre syncopal sxs such as dizziness etc. Since that last episode she has not had any further episodes. Was at [facility] and they told her she was dehydrated gave fluids and sent home. will check echo, TSH, w ill stop the lasix, and decrease her lasix since her BP is on the low side Hali Childers MANAGER PRODUCT MANAGEMENT Date Name Stress Regadenoson Low Dose Lung [...]
--- OUTSIDE RECORDS SUMMARY | 2025-02-02 15:08 | XMS_ITS | Clinical Summary ---
Author Organization [facility] Address [address] [address] Care Team Providers Care Geotechnical Engineering Technician Name Role Phone Unavailable Primary Care Provider [...]
--- OUTSIDE RECORDS SUMMARY | 2025-02-02 15:08 | XMS_ITS | Encounter Summary ---
Author Organization [facility] Address [address] [place] [address] Care Team Providers Care Senior Informatica Developer Name Role Phone Card, La Nena Oliver NP Unavailable [phone] Darren Bower MD Unavailable Ekaterina Crum DO Primary Care Provider [phone] Jeny Ho Primary Care Provider Reason for Visit * Reason Onset Date Comments Scheduling Appointments 03/11/2020 Called f or DEXA appointment Encounter Details Date Type Department Care Team (Late st Contact Info) Description 03/11/2020 Telephone [facility] [address] [place] [address] Chayo Padilla RT Scheduling Appointments (Called for [...] on file Legal 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 Gender Identity Female 05/14/2024 12:29 PM CDT Sexual Orientation Straight 03/14/2020 8: 28 AM CDT documented as of this encounter Plan of Treatment Not on file documented as of this encounter Visit Diagnoses Not on filedocumented in this encounter Care Teams Senior Informatica Developer Relationship Specialty Start Date End Date Radames Ekaterina DO Fabián [address] [place] [address] PCP - General Family Medicine 12/18/19 04/09/24 Jeny Ho PA [address] [place] [address] PCP - General Physician Inspector Filter Tip 04/10/24 La Nena Figueroa NP Nurse Practitioner Gastroenterology 12/18/19 Darren Bower MD [address] [place] [address] Referring Physician Hematology and Oncology 12/18/19 documented as of this encounter
--- OUTSIDE RECORDS SUMMARY | 2025-02-02 15:08 | XMS_ITS | Clinical Summary ---
Author Organization [facility] Address [address] [place] [address] Phone Care Team Providers Care Beaming Machine Operator Name Role Phone Ekaterina Crum Primary Care Provider [phone] Allergies No known active allergies Medications omeprazole [...] Maintenance Due Date Last Done Comments Hepatitis C Virus (HCV) Screening 1955 Cologuard 1999 Immunochemical Fecal Occult Blood 1999 Zoster Immunization (1 of 2) 01/11/2004 Pneumococcal Immunization (50+ years) (2 of 2 - PCV) 06/26/2020 06/26/2019, 07/21/2005 SARS-COV-2 Immunization ( season) 2024 07/26/2021, 12/03/2020, 11/05/2020 Influenza Immunization (Season Ended) 2025 06/04/2020, 05/20/2020, 06/26/2019, Additional history exists Respiratory Syncytial Virus (RSV) Immunization (Adult) (1 - 1-dose 75+ series) 2029 Colonoscopy 07/29/2029 07/29/2019, 07/29/2019 Colorectal Cancer Screening 07/29/2029 DTaP/Tdap/Td Immunization Discontinued 04/15/2019 TdaP Immunization Completed [...] Type Associated Problems Recent Progress Patient-Stated? 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) Yes Siria Dominguez LCSW Note: I want to feel less angry towards my step-daughter Goal Reviewed with: patient Readiness to change: Ready to change Department associated with goal: [facility] Steps to achieve goal: Patient to be educated on stages of grief and tasks of mourning Patient to be educated/counseled on coping with anger [facility] On track( 020 10:56 AM BEEKEEPER FARMER) No Siria Dominguez LCSW Note: Goal: Patient will be able to report decreased grieving to a manageable level Goal Reviewed with: patient Readiness to change: Ready to change Department associated with goal: [facility] Steps to achieve goal: Patient [...] Gian Shah M.D. RL: MITZY Report ID: [id number] Reading Location: [place] [address] Procedure Note Gian Shah MD - 05/12/2019 [...] Gian Shah M.D. RL: MITZY Report ID: [id number] Reading Location: [id number] IMPRESSION: 1. Indeterminate 5 mm ground-glass nodule in the right lower lobe. No solid nodules are noted. 2. Minimal centrilobular emphysema in the upper lungs. 3. Age-indeterminate compression fracture of T9, moderate in severity. 4. Other findings as above. Lung-RADS v1.1 category 2: Benign appearance or behavior. Recommendation: Continue annual screening LDCT in 12 months. Darren Bower MD IMG CT ORDERABLES Final Result from Last 3 Months or Most Recently Relevant to Health Maintenance Insurance MEDICARE C AETNA Care Teams Beaming Machine Operator Relationship Specialty Start Date End Date Ekaterina Crum DO [address] [place] [address] DR BONILLA [address] [place] [address] PCP - General Family Medicine 10/11/20
--- OUTSIDE RECORDS SUMMARY | 2025-02-02 15:08 | XMS_ITS | Clinical Summary ---
Author Organization [facility] Address [address] [place] [address] Care Team Providers Care Power Crane Operator Name Role Phone Card, La Nena Oliver NP Unavailable [phone] Darren Bower MD Unavailable Jeny Ho [...] 11/01/19 23 Active allopurinoL (ZYLOPRIM) 100 mg tabletIndications:[place] blood uric acid level TAKE 1 [...] 07/16/2022 Assessment & Plan (07/16/2022 7:04 PM MEAT PICKLER): X-ray of lumbar spine. Titrating dose of gabapentin. Referral to pain management Chronic neck pain 07/16/2022 Assessment & Plan (07/16/2022 7:04 PM MEAT PICKLER): X-ray the cervical spine. Will trial gabapentin to titrating dose of 302-3 times daily. Referral to pain management Gross hematuria 06/13/2022 Assessment & Plan (06/15/2022 8:13 PM CDT): Labs ordered, will follow. Dependent edema 04/13/2022 Personal history of colonic polyps 03/31/2022 Overview (03/31/2022): Added automatically from request for surgery [id number] Arthralgia of multiple sites 02/12/2022 Assessment & [...] Assessment & Plan (12/27/2020 2:53 PM CDT): Wdmgc-qn-ygieak exercises encouraged. Handout given. Recommended physical therapy, [...] counseling. Assessment & Plan (07/16/2022 7:05 PM MEAT PICKLER): BMI Follow-up includes: exercise counseling. Assessment & [...] GI. Assessment & Plan (09/19/2019 1:19 PM MEAT PICKLER): Pt says abdominal pain, diarrhea, and nausea resolved a few days after last office visit and did not need to take budesonide. She is taking Lialda 2.4 g daily and doing well. Continue current regimen. Assessment & Plan (08/22/2019 1:31 PM MEAT PICKLER): Pt restarted on medication about 3 weeks [...] ED wwill need to get records from [place] Assessment & Plan (06/15/2022 8:16 PM CDT): [...] hematology. Assessment & Plan (08/22/2019 1:04 PM MEAT PICKLER): EGD and colonoscopy ruled out GI bleed as cause for anemia. Pt says she follows with Dr. Bower at [facility] for her anemia. No further workup needed [...] (03/31/2022): Added automatically from request for surgery [id number] Elevated blood uric acid level 01/13/2022 02/10/2022 [...] 12/18/2019 Assessment & Plan (09/19/2019 12:39 PM MEAT PICKLER): Repeat hepatic function panel at last appointment showed normal LFT's. Assessment & Plan (08/22/2019 1:34 PM MEAT PICKLER): Pt says Mariel Mercedes had drawn labs in Jun 2019 and saw elevated alk phos. Appears alk phos then was 246. Will repeat hepatic function panel today. Nausea 08/22/2019 09/19/2019 Assessment & Plan (08/22/2019 1:35 PM MEAT PICKLER): Having some nausea with BM but no vomiting. Likely related to exacerbation of colitis. Diarrhea 08/22/2019 09/19/2019 Assessment & Plan (08/22/2019 1:33 PM MEAT PICKLER): Pt says she can have up to [...] CDT - 11/20/2024 2:00 PM CDT Surgery [facility] [address] [address] Alexi Britt MD COLON CONTROL BLEEDING 11/20/2024 12:58 PM CDT Anesthesia Event [address] [address] Sachin Ovalle DO 11/20/2024 11:36 AM CDT - 11/20/2024 2:15 PM CDT Hospital Encounter [address] [address] Alexi Britt MD Discharge Disposition: Discharge to [...] UPPER GASTROINTESTINAL ENDOSCOPY 5 yrs ago in [place] POLYPECTOMY CARPAL TUNNEL RELEASE 08/20/1999 - 08/19/2000 Right CHOLECYSTECTOMY 08/20/2001 - 08/19/2002 TUBAL LIGATION 08/20/1997 - 08/19/1998 COLONOSCOPY 08/20/2013 - 08/19/2014 in [place] UMBILICAL HERNIA REPAIR 06/20/2019 - 07/19/2019 CATARACT [...] Parker E Dunsing Diabetes Maternal Grandmother Mery Prem Arthritis Mother Chrissy E Dunsing Cancer Mother Chrissy E Dunsing Ovarian cancer Mother Chrissy E Dunsing Diabetes Mother's Sister Rebecca Schafer Diabetes Paternal Grandmother Mohini Coles Dunsing Vision loss Paternal Grandmother Mohini Coles Dunsing Breast cancer Neg Hx Thyroid cancer Neg Hx Relation Name Status Comments Brother 1 Lalito R Dunsung Brother 2 Gildardo D Dunsing Father Parker E Dunsing Maternal Grandmother Mery [place] Mother Chrissy E Dunsing Mother's Sister Rebecca Nguyeniber Paternal Grandmother Moihni Coles Dunsing Social History Tobacco Use Types [...] on file Legal Sex Female 8:33 AM MEAT PICKLER Gender Identity Female 05/14/2024 12:29 PM CDT [...] 11/20/2024 11:43 AM CDT [facility] Patient Name: Ernestina Sullivan Procedure Date: 11/20/2024 11:43 AM Date of : 1955 Admit Type: Outpatient Age: 69 Gender: Female Attending MD: Alexi Britt M.D. Room: [facility] ENDOSCOPY ROOM 1 Note Status: [...] passed under direct vision. The Endoscope GIF-[id number] was introduced through the mouth, and advanced [...] 11:43 AM Procedure Code(s): --- Professional --- 17540, Esophagogastroduodenoscopy, flexible, transoral; diagnostic, including collection of specimen(s) by brushing or washing, when performed (separate procedure) Diagnosis Code(s): --- Professional --- D50.0, Iron deficiency anemia secondary to blood loss (chronic) D50.9, Iron deficiency anemia, unspecified CPT copyright 2020 [employer]. All rights reserved. The codes documented in this report are preliminary and upon wafer batter mixer reviewmay be revised to meet current compliance requirements. Recognized by the [employer] Society for G[employer] for promoting quality [...] MD: Alexi Britt M.D. Room: [facility] ENDOSCOPY ROOM 1 Note Status: [...] under direct vision. The Pediatric Colonoscope [id number]-H190L [id number] was introducedthrough the anus and advanced to [...] 11:42 AM Procedure Code(s): --- Professional --- 06693, Colonoscopy, flexible; with control of bleeding, any method Diagnosis Code(s): --- Professional --- K64.8, Other hemorrhoids K55.20, Angiodysplasia of colon without hemorrhage CPT copyright 2020 [employer]. All rights reserved. The codes documented in this report are preliminary and upon wafer batter mixer reviewmay be revised to meet current compliance requirements. Recognized by the [employer] for G[employer] for promoting quality [...] Dual x-ray absorptiometry (DEXA) was performed using Q.branch system. GENERAL GUIDELINES: According to WHO guidelines, [...] Dual x-ray absorptiometry (DEXA) was performed using Q.branch system. GENERAL GUIDELINES: According to WHO guidelines, [...] Hep C Ab Nonreactive Nonreactive [facility] ([place]) Comment: Interpretive Data Nonreactive: Antibodies to HCV [...] last revised on 2019. Testing performed by: [facility], [address] [place] [address]., [id number] Blood specimen (specimen) 12/23/2019 10:12 AM CDT 12/23/2019 1:46 PM CDT Vaishnavi Crum DO LAB MICROBIOLOGY - GENERAL ORDERABLES Final Result [facility] ([place]) [facility] Department [email or web address] [address] from Last 3 Months or Most Recently Relevant to Health Maintenance Insurance Advance Directives For more information, please contact: [phone] * Full Code (Latest Code Status on [...] 9:10 AM 01/03/2019 4:13 PM Care Teams Power Crane Operator Relationship Specialty Start Date End Date Jeny Ho PA [address] [place] [address] PCP - General Physician Cupola Tapper 04/10/24 La Nena Figueroa NP Nurse Practitioner Gastroenterology 12/18/19 Darren Bower MD [address] [place] [address] Referring Physician Hematology and Oncology 12/18/19
[2025-02-02 15:30] LABS: Hematocrit 34.9 % (37.0-47.0); Hemoglobin 10.9 g/dL (12.0-15.0); Mean Corpuscular HGB Conc 31.2 g/dl (32-36); Mean Corpuscular Volume 105.8 fl (80-100); Platelet Count Result 243 k/mm3 (150-375); Red Cell Distribution Width 17.5 % (11.5-14.5); White Blood Count 12.2 K/mm3 (4.5-10.0)
[2025-02-02 15:33] LABS: Add Urine Microscopic? YES; Appearance Urine Clear (Clear); Bacteria Urine 1+ /hpf; Bilirubin Urine Negative (Negative); Blood Urine Negative (Negative); Color Urine Yellow (Yellow); Glucose Urine UA Negative (Negative); Ketones Urine Negative (Negative); Leukocyte Esterase Ur Trace LEU/UL (Negative); Nitrate Urine Negative (Negative); Protein Urine Negative (Negative); RBC Urine 0-2 /hpf (0-2); Specific Grav Ur 1.013 (1.001-1.035); Squamous Epithelial Cell Urine Few /hpf (Few); pH Urine 5.5 (5.0-9.0)
[2025-02-02 15:48] LABS: Anion Gap 10 mmol/L (4-12); Blood Urea Nitrogen 17 mg/dL (7-17); Calcium 10.2 mg/dL (8.4-10.2); Carbon Dioxide 26 mmol/L (22-30); Chloride 99 mmol/L (98-107); Estimated Glomerular Filt Rate 35; Glucose 105 mg/dL (65-110); Potassium 4.3 mmol/L (3.4-5.0); Prothrombin Time 13.6 Seconds (11.1-14.7); Sodium 135 mmol/L (137-145)
[2025-02-02 15:49] LABS: Partial Thromboplastin Time 23.6 Seconds (22.3-36.8)
== END 2025-02-02 13:55 | disposition home or self-care (01) ==
PROVIDERS: Visit Provider Neurological Surgery
DX: M43.16 Spondylolisthesis, lumbar region (principal); M47.896 Other spondylosis, lumbar region; N28.1 Cyst of kidney, acquired
CPT/HCPCS: 36415; 71046; 72131; 80048; 81001; 85027; 85610; 85730; 87086; 93005

== ENCOUNTER 2025-02-19 15:48 | Observation (INO) | payer MEDICARE, MEDICAID, SELFPAY ==
--- OUTSIDE RECORDS SUMMARY | 2025-01-07 00:43 | XMS_ITS | Clinical Summary ---
Author Organization Formerly [facility] Address [address] [place] [address] Care Team Providers Care Gold Charmer Name Role Phone Card, La Nena Oliver NP Unavailable [phone] Darren Bower MD Unavailable Jeny Ho Primary Care Provider Allergies Active Allergy Reactions Criticality Noted Date Comments Celecoxib Unknown 12/24/2008 Gabapentin Agitation Low 07/20/2022 Medications atorvastatin (LIPITOR) 10 mg tabletIndications:Pure hypercholesterolemia Take 1 tablet (10 mg total) by mouth daily 90 tablet 3 01/05/20 22 Active fluticasone propionate (FLONASE) 50 mcg/actuation nasal spray as needed 01/06/20 22 Active FLUoxetine (PROzac) 20 mg capsuleIndications:Mild episode of recurrent major depressive disorder,Generalized anxiety disorder TAKE 3 CAPSULES BY MOUTH EVERY DAY 270 capsule 3 05/01/20 22 Active metoprolol XL (TOPROL-XL) 25 mg extended release tabletIndications:Hyper tension, essential TAKE 1 TABLET BY MOUTH EVERY DAY 90 tablet 11/01/19 23 Active allopurinoL (ZYLOPRIM) 100 mg tabletIndications:[place] blood uric acid level TAKE 1 TABLET BY MOUTH EVERY DAY 90 tablet 12/13/19 23 Active alendronate (FOSAMAX) 70 mg tabletIndications:Age-r elated osteoporosis without current pathological fracture PLEASE SEE ATTACHED FOR DETAILED DIRECTIONS 12 tablet 3 02/20/20 23 Active cholecalciferol 25 mcg (1,000 unit) tablet Take 1 tablet (1,000 Units total) by mouth daily 02/29/20 24 Active cyanocobalamin (Vitamin B-12) 1,000 mcg/mL injection BRING TO OFFICE FOR WEEKLY B12 INJECTION 01/31/20 24 Active ferrous sulfate ER 324 mg (65 mg iron) EC tablet TAKE 1 TABLET BY MOUTH ON SUNDAY, SUNDAY, AND Sunday03/25/20 24 Active montelukast (SINGULAIR) 10 mg tablet Take 1 tablet (10 mg total) by mouth daily 03/20/20 24 Active traMADoL (ULTRAM) 50 mg tablet Take 1 tablet (50 mg total) by mouth every 12 (twelve) hours as needed for pain 02/14/20 24 Active lisinopriL (PRINIVIL,ZESTRIL) 10 mg tablet Take 1 tablet (10 mg total) by mouth daily 03/03/20 24 Active omeprazole (PriLOSEC) 20 mg capsule TAKE 1 CAPSULE (20 MG TOTAL) BY MOUTH EVERY OTHER DAY 45 capsule 11/18/19 25 Active Active Problems Problem Noted Date Diagnosed Date AVM (arteriovenous malformation) of colon 2023 Tobacco use disorder 04/10/2024 Class 2 severe obesity due t o excess calories with serious comorbidity and body mass index (BMI) of 38.0 to 38.9 in adult 11/08/2022 Assessment & Plan (11/08/2022 12:16 PM CDT): Wt Readings from Last 3 Encounters: 11/08/22 95.2 kg (209 lb 12.8 oz) 09/07/22 96.2 kg (212 lb) 07/12/22 99.2 kg (218 lb 11.2 oz) BMI Readings from Last 3 Encounters: 11/08/22 38.36 kg/m 09/07/22 38.78 kg/m 07/12/22 40.00 kg/m Not at goal of bmi <30 Continue diet and exercise BMI Follow-up includes: nutrition counseling and exercise counseling. Chronic bilateral low back pain with bilateral s ciatica 07/16/2022 Assessment & Plan (07/16/2022 7:04 PM LICENSE AND PERMIT SPECIALIST): X-ray of lumbar spine. Titrating dose of gabapentin. Referral to pain management Chronic neck pain 07/16/2022 Assessment & Plan (07/16/2022 7:04 PM LICENSE AND PERMIT SPECIALIST): X-ray the cervical spine. Will trial gabapentin to titrating dose of 302-3 times daily. Referral to pain management Gross hematuria 06/13/2022 Assessment & Plan (06/15/2022 8:13 PM CDT): Labs ordered, will follow. Dependent edema 04/13/2022 Personal history of colonic polyps 03/31/2022 Overview (03/31/2022): Added automatically from request for surgery [id number] Arthralgia of multiple sites 02/12/2022 Assessment & Plan (02/12/2022 8:10 PM CDT): Labs ordered, will follow. Tubular adenoma of colon 01/02/2022 Viral wart on finger 12/05/2021 Assessment & Plan (12/05/2021 8:20 PM CDT): Suspected wart. Referred to plastic surgeon for further evaluation/mgmt. Callus of foot 12/05/2021 Assessment & Plan (12/05/2021 7:30 PM CDT): Referred to podiatry for further evaluation/mgmt. Vitamin B12 deficiency 04/27/2021 Anemia 12/27/2020 Chronic pain of both knees 12/27/2020 Assessment & Plan (12/27/2020 2:53 PM CDT): Jhevo-tk-woouuv exercises encouraged. Handout given. Recommended physical therapy, patient declined at this time. She stated that she would let me know should she decide to change her mind. Mass of finger of right hand 04/19/2020 Assessment & Plan (04/19/2020 5:34 PM CDT): Referred to plastic surgery for further eval/mgmt. Generalized anxiety disorder 04/19/2020 Assessment & Plan (06/15/2022 8:14 PM CDT): Stable. Cont. Current prescription medications. Assessment & Plan (12/05/2021 7:20 PM CDT): Stable. Cont. Current prescription medications. Assessment & Plan (04/24/2021 7:50 PM CDT): Clinically improved, continue current meds. Assessment & Plan (12/27/2020 2:52 PM CDT): Clinically improved, continue current meds. Age-related osteoporosis wit hout current pathological fracture 03/12/2020 Assessment & Plan (12/05/2021 8:21 PM CDT): Weight-bearing exercises recommended as tolerated. Continue Fosamax and calcium. Assessment & Plan (04/24/2021 7:51 PM CDT): Weight-bearing exercises recommended. Cont Fosamax. Assessment & Plan (04/19/2020 5:32 PM CDT): Weight-bearing exercises recommended. Patient reports she will ask GI if it's ok to take before starting Fosamax. Morbid obesity with BMI of 40.0-44.9, adult 11/20 Assessment & Plan (11/08/2022 11:41 AM CDT): Wt Readings from Last 3 Encounters: 11/08/22 95.2 kg (209 lb 12.8 oz) 09/07/22 96.2 kg (212 lb) 07/12/22 99.2 kg (218 lb 11.2 oz) BMI Readings from Last 3 Encounters: 11/08/22 38.36 kg/m 09/07/22 38.78 kg/m 07/12/22 40.00 kg/m Not at goal of bmi <30 Continue diet and exercise BMI Follow-up includes: nutrition counseling and exercise counseling. Assessment & Plan (07/16/2022 7:05 PM LICENSE AND PERMIT SPECIALIST): BMI Follow-up includes: exercise counseling. Assessment & Plan (06/15/2022 8:15 PM CDT): Weight reduction, daily exercise and dietary modifications recommended., as obesity can complicate their hypercholesterolemia and hypertension Assessment & Plan (02/12/2022 8:09 PM CDT): Weight reduction, daily exercise and dietary modifications recommended. Assessment & Plan (01/13/2022 7:16 PM CDT): Weight reduction, daily exercise and dietary modifications recommended. Assessment & Plan (12/05/2021 8:22 PM CDT): Weight reduction, daily exercise and dietary modifications recommended. Assessment & Plan (04/24/2021 7:51 PM CDT): Weight reduction, daily exercise and dietary modifications recommended. Assessment & Plan (12/27/2020 2:52 PM CDT): Weight reduction, daily exercise and dietary modifications recommended. Assessment & Plan (04/19/2020 5:34 PM CDT): Weight reduction, daily exercise and dietary modifications recommended. Assessment & Plan (12/18/2019 2:33 PM CDT): Weight reduction, daily exercise and dietary modifications recommended. Pure hypercholesterolemia 12/18/2019 Assessment & Plan (06/15/2022 8:14 PM CDT): LDL at goal of less than 100, continue current prescription medications. Assessment & Plan (12/05/2021 8:21 PM CDT): LDL at goal of < 100. Cont current mgmt. Assessment & Plan (04/24/2021 7:50 PM CDT): LDL at goal of < 70. Cont current meds. Assessment & Plan (12/27/2020 2:51 PM CDT): LDL is at goal of less than 70. Continue current management. Assessment & Plan (04/19/2020 5:31 PM CDT): Stable. Cont. Current meds. Assessment & Plan (12/18/2019 2:31 PM CDT): Stable. Cont. Current meds. Primary hypertension 12/18/2019 Assessment & Plan (11/08/2022 11:40 AM CDT): BP Readings from Last 3 Encounters: 11/08/22 118/70 07/12/22 120/65 06/13/22 113/70 Vitals BP 118/70 (BP Location: Right arm, Patient Position: Sitting) Pulse 80 Resp 18 Ht 157.5 cm (5' 2.01) Wt 95.2 kg (209 lb 12.8 oz) LMP (LMP Unknown) SpO2 98% BMI 38.36 kg/m Lab Results Component Value Date POTASSIUM 4.2 06/16/2022 At goal at this time - did have some hypotension in the hospital But better after Assessment & Plan (06/15/2022 8:14 PM CDT): Clinically improved, continue current prescription medications. Assessment & Plan (02/12/2022 8:09 PM CDT): Clinically improved, continue current prescription medications. Continue to monitor bps at home. Notify our office if bps are elevated. Assessment & Plan (01/13/2022 7:16 PM CDT): BP at goal of < 140/90. Due to GFR, will d/c Lisinopril-HCT, change to lisinopril 20 mg every day. Continue metoprolol xl. Referred to nephrology for further eval/mgmt. Assessment & Plan (12/05/2021 8:21 PM CDT): Clinically improved, continue current prescription medications. Assessment & Plan (04/24/2021 7:49 PM CDT): BP at goal of < 140/90. No EKG on file, EKG done today, NSR. Cont current meds. Assessment & Plan (12/27/2020 2:51 PM CDT): Now hypotensive. Decrease metoprolol XL 50 mg once a day down to 25 mg once a day. Continue lisinopril/hydrochlorothiazide 10-12.5 mg daily. Increase daily exercise. Assessment & Plan (12/18/2019 2:31 PM CDT): Stable. Cont. Current meds. Mild episode of recurrent major depressive disor anne 12/18/2019 Assessment & Plan (06/15/2022 8:14 PM CDT): Clinically improved, continue current prescription medications. Assessment & Plan (12/05/2021 8:21 PM CDT): Stable. Cont. Current prescription medications. Assessment & Plan (04/24/2021 7:50 PM CDT): Stable. Cont. Current meds. Assessment & Plan (12/27/2020 2:52 PM CDT): Stable. Cont. Current meds. Assessment & Plan (12/18/2019 2:31 PM CDT): Clinically improved, continue current meds. Menopause 12/18/2019 Gastroesophageal reflux disease 11/21/2018 Overview (12/18/2019): Managed by GI Assessment & Plan (04/24/2021 7:50 PM CDT): Asx. Continue current therapy. Assessment & Plan (04/19/2020 5:31 PM CDT): Asx. Continue current therapy. Managed by GI. Assessment & Plan (03/19/2020 1:30 PM CDT): Pt take omeprazole 20mg daily. She says she does not have any breakthrough symptoms. Due to recent diagnosis of osteoporosis, will try to wean off of omeprazole to see how she does. Instructed to take every other day for a couple of weeks. If symptoms reoccur, can go back to daily use. If she does well, try stopping and take prn. Assessment & Plan (12/18/2019 2:33 PM CDT): Managed by GI. Assessment & Plan (05/21/2019 1:39 PM CDT): Takes omeprazole 20mg every other day. Also recently changed her diet and symptoms are well controlled. EGD done recently was negative. Assessment & Plan (11/21/2018 4:49 PM CDT): Controlled with omeprazole 20mg QD. If she stops the medication, she becomes symptomatic at around day 2. She had EGD about 7-8 years ago with unknown results. With patient being current smoker and needing long-term use of PPI, will have EGD performed. Refill for omeprazole 20mg sent and instructed her to take this every other day. Discussed GERD diet. Microscopic colitis 11/21/2018 Overview (12/18/2019): Managed by GI Assessment & Plan (03/19/2020 1:29 PM CDT): Switched to Apriso a few months ago due to lower cost. She is doing well on this medication. No complaints at this time. Continue Apriso. Pt is up to date on colonoscopy. Assessment & Plan (12/18/2019 2:33 PM CDT): Managed by GI. Assessment & Plan (09/19/2019 1:19 PM LICENSE AND PERMIT SPECIALIST): Pt says abdominal pain, diarrhea, and nausea resolved a few days after last office visit and did not need to take budesonide. She is taking Lialda 2.4 g daily and doing well. Continue current regimen. Assessment & Plan (08/22/2019 1:31 PM LICENSE AND PERMIT SPECIALIST): Pt restarted on medication about 3 weeks ago after colonoscopy showed mucosa that was inflamed and suggestive of colitis. Biopsies of colon showed microscopic colitis. She was started on Apriso and having diarrhea multiple times a day. Will add budesonide 9mg daily with Apriso. Assessment & Plan (05/21/2019 1:39 PM CDT): Pt is not having any bothersome symptoms. She has a normal BM 3-5 times a day. Assessment & Plan (11/21/2018 4:50 PM CDT): Pt currently has 3-5 BM's a day and uses imodium prn to control symptoms. She says the symptoms are not bothersome to her. Pt's last colonoscopy was 7-8 years ago and she says she thinks she had polyps. Will have screening colonoscopy done after EGD is done and GERD is addressed. Iron deficiency anemia due to chronic blood loss 08/09/2016 Assessment & Plan (11/08/2022 11:43 AM CDT): Lab Results Component Value Date WBC 13.0 (H) 06/16/2022 HGB 10.5 (L) 06/16/2022 HCT 34.6 (L) 06/16/2022 MCV 91.8 06/16/2022 LABPLAT 439 (H) 06/16/2022 Stable at thsi time - states that it was normal ED wwill need to get records from [place] Assessment & Plan (06/15/2022 8:16 PM CDT): Iron level within normal range, continue current Rx meds. Labs ordered, will follow. Assessment & Plan (02/12/2022 8:09 PM CDT): Asx. Labs ordered, will follow. Assessment & Plan (01/13/2022 7:19 PM CDT): Iron level normal, hgb slightly lower than previous measure. Referred to nephrology for further eval/mgmt. Assessment & Plan (04/19/2020 5:31 PM CDT): Asx. Continue current therapy. Assessment & Plan (12/18/2019 2:32 PM CDT): Followed by hematology. Assessment & Plan (08/22/2019 1:04 PM LICENSE AND PERMIT SPECIALIST): EGD and colonoscopy ruled out GI bleed as cause for anemia. Pt says she follows with Dr. Bower at [facility] for her anemia. No further workup needed at this time. Cigarette nicotine dependence without complicati on 02/16/2016 Assessment & Plan (06/15/2022 8:15 PM CDT): Advised patient to quit smoking. Assessment & Plan (02/12/2022 8:09 PM CDT): Advised patient to quit smoking. Assessment & Plan (01/13/2022 7:17 PM CDT): Advised patient to quit smoking. Assessment & Plan (12/05/2021 8:22 PM CDT): Advised patient to quit smoking. Assessment & Plan (04/24/2021 7:51 PM CDT): Advised patient to quit smoking. Assessment & Plan (12/27/2020 2:52 PM CDT): Advised patient to quit smoking. Assessment & Plan (04/19/2020 5:34 PM CDT): Advised patient to quit smoking. Assessment & Plan (12/18/2019 2:32 PM CDT): Advised patient to quit smoking. Arthralgia of ankle 11/10/2013 Resolved Problems Problem Noted Date Diagnosed Date Resolved Date Screening for colon cancer 03/31/2022 1 Overview (03/31/2022): Added automatically from request for surgery [id number] Elevated blood uric acid level 01/13/2022 02/10/2022 Assessment & Plan (01/13/2022 7:23 PM CDT): No acute gout flare at this time. Labs ordered. Referred to nephrology for further eval/mgmt. Elevated serum creatinine 01/13/2022 Assessment & Plan (01/13/2022 7:22 PM CDT): Increase water intake, D/C allopurinol and lisinopril-HCT due to kid function. Acute renal insufficiency 01/13/2022 Assessment & Plan (01/13/2022 7:22 PM CDT): Increase water intake, referred to nephrology for further eval/mgmt. D/C allopurinol and lisinopril-HCT due to kid function. Tobacco use disorder 01/02/2022 022 Preoperative clearance 05/18/202112/05 Assessment & Plan (05/18/2021 2:41 PM CDT): Low risk for cataract surgery. Left ankle swelling 04/24/2021 12/06/19 22 Assessment & Plan (04/24/2021 7:53 PM CDT): No obvious swelling today, lab ordered. Pain of toe of left foot 04/24/2021 Assessment & Plan (04/24/2021 7:53 PM CDT): Lab ordered, will follow. Tobacco use disorder 02/04/2021 021 Diarrhea 02/04/2021 12/05/2021 BMI 34.0-34.9,adult 03/19/2020 04/19/20 20 Elevated alkaline phosphatase level 08/22/2019 12/18/2019 Assessment & Plan (09/19/2019 12:39 PM LICENSE AND PERMIT SPECIALIST): Repeat hepatic function panel at last appointment showed normal LFT's. Assessment & Plan (08/22/2019 1:34 PM LICENSE AND PERMIT SPECIALIST): Pt says Mariel Mercedes had drawn labs in Jun 2019 and saw elevated alk phos. Appears alk phos then was 246. Will repeat hepatic function panel today. Nausea 08/22/2019 09/19/2019 Assessment & Plan (08/22/2019 1:35 PM LICENSE AND PERMIT SPECIALIST): Having some nausea with BM but no vomiting. Likely related to exacerbation of colitis. Diarrhea 08/22/2019 09/19/2019 Assessment & Plan (08/22/2019 1:33 PM LICENSE AND PERMIT SPECIALIST): Pt says she can have up to 10+ BM's daily since colonoscopy. Will get stool studies to rule out infectious origin; however, this is likely exacerbation of microscopic colitis. Will have her continue Apriso and start budesonide 9mg daily. She was instructed to stick to bland, low fiber diet until symptoms resolve. Leukocytosis 02/16/2016 12/18/2019 Encounters Date Type Department Care Team Description 11/20/2024 1:30 PM CDT - 11/20/2024 2:00 PM CDT Surgery [facility] [address] [address] Alexi Britt MD COLON CONTROL BLEEDING 11/20/2024 12:58 PM CDT Anesthesia Event [address] [address] Sachin Ovalle DO 11/20/2024 11:36 AM CDT - 11/20/2024 2:15 PM CDT Hospital Encounter [address] [address] Alexi Britt MD Discharge Disposition: Discharge to home or self care from Last 3 Months Immunizations Immunization Administration Dates Next Due Influenza, Quadrivalent, Hig h Dose, Preservative Free, Intrr 06/13/2022,05/18/2021 Influenza, Quadrivalent, Spl it, Intramuscular 06/06/2017,05/22/2016 Influenza, Quadrivalent, Spl it, Preservative Free, Intramuscular 07/22/2018,07/02/2014,07/15/2013,06/03,05/24/2011,07/25/2010,07/22/2009 Influenza, Trivalent, High D ose, Split, Preservative Free, Intramuscular 06/04/2020,06/26/2019 Influenza, Trivalent, IM (MDV) 05/11/2015 Influenza, Unspecified 05/20/2020 Moderna SARS-CoV-2 Monovalen t Vaccination (12+ YRS) 12/03/2020,11/05/2020 Pneumococcal Conjugate Pcv20 06/13/2022 Pneumococcal Polysaccharide PPV23 06/26/2019,09/2004 Tdap 04/15/2019 Surgical History Surgery Date Site/Laterality Comments UPPER GASTROINTESTINAL ENDOSCOPY 5 yrs ago in [place] POLYPECTOMY CARPAL TUNNEL RELEASE 08/20/1999 - 08/19/2000 Right CHOLECYSTECTOMY 08/20/2001 - 08/19/2002 TUBAL LIGATION 08/20/1997 - 08/19/1998 COLONOSCOPY 08/20/2013 - 08/19/2014 in [place] UMBILICAL HERNIA REPAIR 06/20/2019 - 07/19/2019 CATARACT EXTRACTION 2020 NECK SURGERY 06/04/2024 Medical History Medical History Date Comments Smoking Ulcerative colitis (HCC) GERD (gastroesophageal reflux disease) Colon polyp Hypertension Depression Hyperlipidemia Anemia 2012 Anxiety 1986 Osteoporosis 2020 Family History Medical History Relation Name Comments Arthritis Brother 1 Lalito R Dunsung Heart attack Brother 1 Lalito R [place]uns[place] Cancer Brother 2 Gildardo D Dunsing Arthritis Father Parker E Dunsing Heart attack Father Parker E [place] Stroke Father Parker E [place] Diabetes Maternal Grandmother Mery [place] Arthritis Mother Chrissy E Dunsing Cancer Mother Chrissy E Dunsing Ovarian cancer Mother Chrissy E Dunsing Diabetes Mother's Sister Rebecca Schafer Diabetes Paternal Grandmother Mohini Coles Dunsing Vision loss Paternal Grandmother Mohini Coles Dunsing Breast cancer Neg Hx Thyroid cancer Neg Hx Relation Name Status Comments Brother 1 Lalito R Dunsung Brother 2 Gidlardo D Dunsing Father Parker E Dunsing Maternal Grandmother Mery Prem Mother Chrissy E Dunsing Mother's Sister Rebecca Nguyeniber Paternal Grandmother Mohini Coles Dunsing Social History Tobacco Use Types Packs/Day Years Used Date Smoking Tobacco: Every Day Cigarettes 0.3 15 Smokeless Tobacco: Never Comments:Patient is down to 1 pack per month. Alcohol Use Standard Drinks/Week Comments Never 0 (1 standard drink = 0.6 oz pur e alcohol) AUDIT-C Answer Date Recorded Q1: How often do you have a drink containing alcohol? Never 11/19/2024 Q2: How many drinks containi ng alcohol do you have on a typical day when you are drinking? Patient does not drink Q3: How often do you have si x or more drinks on one occasion? Never 11/19/2024 PHQ-2 Answer Date Recorded PHQ-2 Total Score (If total score is 3 or more points, staff should administer the PHQ-9) 0 07/12/2022 Personal Safety Answer Date Recorded Have you ever been in or are you currently in a harmful physical or emotional relationship or is someone making you feel afraid or unsafe? Denies 11/20/2024 Comments No Sex and Gender Information Value Date Recorded Sex Assigned at Not on file Legal Sex Female 8:33 AM LICENSE AND PERMIT SPECIALIST Gender Identity Female 05/14/2024 12:29 PM CDT Sexual Orientation Straight 03/14/2020 8: 28 AM CDT Obstetrics History Para Term AB IAB SAB Ectopic Multiple Livin g Live Births 0 0 0 0 0 0 0 0 0 0 0 Last Filed Vital Signs Vital Sign Reading Time Taken Comments Blood Pressure 117/58 11/20/2024 2:01 PM CDT Pulse 69 11/20/2024 2:01 PM CDT Temperature 36.7 C (98 F) 11/20/2024 2:01 PM CDT Respiratory Rate 16 11/20/2024 2:01 PM CDT Oxygen Saturation 100% 11/20/2024 2:01 PM CDT Inhaled Oxygen Concentration - - Weight 90.7 kg (200 lb) 11/20/2024 11:55 AM CDT Height 160 cm (5' 3) 11/20/2024 11:55 AM CDT Body Mass Index 35.43 11/20/2024 11:55 AM CDT Plan of Treatment Health Maintenance Due Date Last Done Comments Hepatitis B Screening 01/11/1972 Zoster Vaccine (1 of 2) 01/11/2004 Osteoporosis Screening-Bone Density Scan 03/12/2022 03/12/2020 Breast Cancer Screening-Mammogram 01/21/2023 01/21/2022, 03/12/2020, 11/26/2018, Additional history exists Well Visit 65+ 06/13/2023 06/13/2022, 09/0 09/2020, 04/19/2020 Depression Screening 07/12/2023 07/12/2022, 05/15/2022, 02/10/2022, Additional history exists Cervical Cancer Screening 01/03/2024 01/02/2023 Covid-19 Vaccine (2023-2 5 season) 2024 07/26/2021, 12/03/2020, 11/05/2020 Influenza Vaccine (Season Ended) 2025 06/13/2022, 05/18/2021, 06/04/2020, Additional history exists Fall Risk Assessment 11/20/2025 11/20/2024, 07/12/2022, 05/15/2022, Additional history exists DTaP/Tdap/Td Vaccine (2 - Td or Tdap) 04/15/2029 04/15/2019 Colon Cancer Screening-Colonoscopy 11/20/2034 11/20/2024, 07/29/2019 Hepatitis C Screening Completed 12/23/2019 Pneumococcal vaccine 65+ Completed 022, 06/26/2019, 07/21/2005 Colon Cancer Screening-CT Colonography Discontinued 11/20/2024, 07/29/2019 Colon Cancer Screening-DNA Stool Discontinued 11/21/19, 07/29/2019 Colon Cancer Screening-FIT Discontinued 11/20/2024, Colon Cancer Screening-Sigmoidoscopy Discontinued 11/20/2024, 07/29/2019 Procedures Procedure Name Priority Date/Time Associated Diagnosis Comments ESOPHAGOGASTRODUODENOSCOPY 11/20 12:53 PM CDT Other iron deficiency anemia Iron deficiency anemia, unspecified iron deficiency anemia type COLON CONTROL BLEEDING 12:53 PM CDT Other iron deficiency anemia Iron deficiency anemia, unspecified iron deficiency anemia type EGD 11/20/2024 11:43 AM CDT COLONOSCOPY 11/20/2024 11:42 AM CDT HM PAP SMEAR WITH HPV Routine 01/02/2023 SCREENING MAMMOGRAM BILATERA L W GWYN Schedule Routine, Read Routine (OP Routine) 01/21/2022 11:06 AM CDT Encounter for screening mammogram for malignant neoplasm of breast DEXA AXIAL SKELETON BONE DENSITY 1 OR MORE SITES Schedule Routine, Read Routine (OP Routine) 03/12/2020 9:50 AM CDT Screening for osteoporosis Menopause HEPATITIS C ANTIBODY Routine 12/23/2019 10:12 AM CDT Encounter for hepatitis C screening test for low risk patient from Last 3 Months or Most Recently Relevant to Health Maintenance Results * EGD (11/20/2024 11:43 AM CDT) Anatomical Region Laterality Modality Other Narrative Procedure Note Alexi Britt MD - 11/20/2024 11:43 AM CDT [facility] Patient Name: Ernestina Sullivan Procedure Date: 11/20/2024 11:43 AM Date of : 1955 Admit Type: Outpatient Age: 69 Gender: Female Attending MD: Alexi Britt M.D. Room: [facility] ENDOSCOPY ROOM 1 Note Status: Finalized Patient Profile: This is a 69 year old female. Noted patient hasiron deficiency anemia and concern about GI blood loss Procedure: Upper GI endoscopy Indications: Iron deficiency anemia secondary to chronic blood loss, Iron deficiency anemia Referring MD: Jeny Ho PA-C Providers: Alexi Britt M.D. 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 - Normal stomach. - Normal esophagus. - No specimens collected. Recommendation: - Continue present medications. No pathology notedin the upper GI system to explain weight loss. Colonoscopy today. Medicines: Monitored Anesthesia Care Complications: No immediate complications. Estimated Blood Loss: Estimated blood loss: none. Procedure: Pre-Anesthesia Assessment: - Prior to the procedure, a History and Physicalwas performed, and patient medications and allergieswere reviewed. The patient's tolerance of previous anesthesia was also reviewed. The risks andbenefits of the procedure and the sedation options and risks were discussed with the patient. All questions were answered, and informed consent was obtained. Prior Anticoagulants: The patient has taken noanticoagulant or antiplatelet agents. ASA Grade Assessment: Per anesthesia note and evaluation. After reviewing the risks and benefits, the patient was deemed in satisfactory condition to undergo the procedure. - Prior to the procedure, a History and Physicalwas performed, and patient medications and allergieswere reviewed. The patient's tolerance of previous anesthesia was also reviewed. The risks andbenefits of the procedure and the sedation options and risks were discussed with the patient. All questions were answered, and informed consent was obtained. Prior Anticoagulants: The patient has taken noanticoagulant or antiplatelet agents. ASA Grade Assessment: Per anesthesia note and evaluation. After reviewing the risks and benefits, the patient was deemed in satisfactory condition to undergo the procedure. The benefits, risks, and alternatives to theprocedure and sedation were discussed and informed consentwas obtained. The scope was passed under direct vision. The Endoscope GIF-H190 [id number] was introduced through the mouth, and advanced to the third partof duodenum. The upper GI endoscopy was accomplished without difficulty. The patient tolerated the procedure well. Findings: The examined duodenum was normal. Mucosa and villous pattern wasnormal. One diverticulum noted in the 2nd part of the duodenum. The entire examined stomach was normal. Retroflexion stomach in the gastric fundus and cardia were normal. The examined esophagus was normal. Electronically signed by Alexi Britt M.D. Alexi Britt M.D. 11/20/2024 1:40:36 PM Number of Addenda: 0 Note Initiated On: 11/20/2024 11:43 AM Procedure Code(s): --- Professional --- 05469, Esophagogastroduodenoscopy, flexible, transoral; diagnostic, including collection of specimen(s) by brushing or washing, when performed (separate procedure) Diagnosis Code(s): --- Professional --- D50.0, Iron deficiency anemia secondary to blood loss (chronic) D50.9, Iron deficiency anemia, unspecified CPT copyright 2020 [employer]. All rights reserved. The codes documented in this report are preliminary and upon experience planning strategist reviewmay be revised to meet current compliance requirements. Recognized by the [employer] for promoting quality in endoscopy Alexi Britt MD ENDOSCOPY PROCEDURES Final Result * Colonoscopy (11/20/2024 11:42 AM CDT) Anatomical Region Laterality Modality Other Narrative Procedure Note Alexi Britt MD - 11/20/2024 11:42 AM CDT [facility] Patient Name: Ernestina Sullivan Procedure Date: 11/20/2024 11:42 AM Date of : 1955 Admit Type: Outpatient Age: 69 Gender: Female Attending MD: Alexi Britt M.D. Room: [facility] ENDOSCOPY ROOM 1 Note Status: Finalized Patient Profile: This is a 69 year old female. Patient has personal history of adenoma polyps. Noted patient has iron-deficiency anemia on iron replacement. Procedure: Colonoscopy Indications: Surveillance: Personal history of adenomatouspolyps on last colonoscopy > 5 years ago, Lastcolonoscopy: July 2019 Referring MD: Jeny Ho PA-C Providers: Alexi Britt M.D. Impression: - Six colonic angiodysplastic lesions. Treated with argon plasma coagulation (APC). - Internal hemorrhoids. - No specimens collected. Recommendation: - Repeat colonoscopy in 5 years for screeningpurposes. - Continue present medications. Focus on iron replacement therapy. Medicines: Monitored Anesthesia Care Complications: No immediate complications. Estimated Blood Loss: Estimated blood loss: none. Procedure: Pre-Anesthesia Assessment: - Prior to the procedure, a History and Physicalwas performed, and patient medications and allergieswere reviewed. The patient's tolerance of previous anesthesia was also reviewed. The risks andbenefits of the procedure and the sedation options and risks were discussed with the patient. All questions were answered, and informed consent was obtained. Prior Anticoagulants: The patient has taken noanticoagulant or antiplatelet agents. ASA Grade Assessment: Per anesthesia note and evaluation. After reviewing the risks and benefits, the patient was deemed in satisfactory condition to undergo the procedure. The benefits, risks and alternatives of theprocedure and sedation were discussed and informed consentwas obtained. All questions were answered. Please referto the signed informed consent document in the medical record. The bowel preparation used was Miralax via split dose instruction. The bowel preparation usedwas bisacodyl tablets via split dose instruction. The scope was passed under direct vision. The Pediatric Colonoscope PCF-H190L [id number] was introducedthrough the anus and advanced to the the cecum, identifiedby appendiceal orifice and ileocecal valve. Thequality of the bowel preparation was excellent. Bowel prepwas administered using a split dose. Findings: The perianal and digital rectal examinations were normal. The cecum appeared normal. Six medium-sized localized angiodysplastic lesions with bleeding on contact were found in the descending colon and in the ascendingcolon. Coagulation for hemostasis using argon plasma at 0.9 liters/minuteand 25 ruiz was successful. The colon (entire examined portion) appeared normal otherwise with no polyps and no mass lesions noted. Internal hemorrhoids were found during retroflexion. The hemorrhoids were medium-sized. Electronically signed by Alexi Britt M.D. Alexi Britt M.D. 11/20/2024 1:38:48 PM Number of Addenda: 0 Note Initiated On: 11/20/2024 11:42 AM Procedure Code(s): --- Professional --- 55235, Colonoscopy, flexible; with control of bleeding, any method Diagnosis Code(s): --- Professional --- K64.8, Other hemorrhoids K55.20, Angiodysplasia of colon without hemorrhage CPT copyright 2020 [employer]. All rights reserved. The codes documented in this report are preliminary and upon experience planning strategist reviewmay be revised to meet current compliance requirements. Recognized by the [employer] for promoting quality in endoscopy us Alexi Britt MD ENDOSCOPY PROCEDURES Final Result * HM PAP SMEAR WITH HPV (01/02/2023) Scribed Pap Smear w/HPV Normal Generic External Data Provider HEALTH MAINTENANC E Final Result * (ABNORMAL) Screening Mammogram Bilateral W [facility] (01/21/2022 11:06 AM CDT) Anatomical Region Laterality Modality Breast Bilateral Mammography 01/23/2022 12:0 9 PM CDT Impressions 01/23/2022 12:09 PM CDT 1. Indeterminate focal asymmetry within the left breast at middle depth. Recommend further evaluation with diagnostic left mammogram with possible ultrasound. 2. There is no mammographic evidence of malignancy in the right breast. A 1 year screening mammogram is recommended. BI-RADS: 0 - Additional imaging evaluation is necessary. The patient has been or will be contacted. Electronically signed by: Nikunj Benitez M.D. Narrative 01/23/2022 12:09 PM CDT EXAMINATION: SCREENING MAMMOGRAM BILATERAL W GWYN ORDERING HEALTHCARE PROVIDER: VAISHNAVI CRUM HISTORY: Routine screening mammography. COMPARISON: 03/12/2020, 11/26/2018, 01/12/2015 TECHNIQUE: CC and MLO views of the bilateral breasts were obtained with digital technique using breast tomosynthesis with C view. Computer aided detection was utilized. FINDINGS: DENSITY: The tissue of the bilateral breasts is almost entirely fatty. BREASTS: There is a focal asymmetry within the central/slightly lateral left breast at middle depth. There are no suspicious masses, suspicious calcifications, or other suspicious findings in the right breast. There are benign-appearing bilateral breast calcifications. us Vaishnavi Crum DO IMG MAMMO PROCEDURES Final Result * Dexa Axial Skeleton Bone Density 1 or 2 Site (03/12/2020 9:50 AM CDT) Anatomical Region Laterality Modality Body N/A Other 03/12/2020 9:59 AM CDT Impressions 03/12/2020 10:53 AM CDT According to the World Health Organization criteria, based upon the left femoral neck bone mineral density (T score value of -2.6), the patient has osteoporosis. General Recommendations: 1. Consider an evaluation for secondary causes of osteoporosis in patients with low bone density. 2. All patients should be counseled on adequate intake of calcium (1200 mg/day), vitamin D (600-800 IU daily) and exercise. 3. The National Osteoporosis Foundation (NOF) guidelines recommend initiating pharmacological therapy, in addition to calcium, vitamin D and exercise, to reduce fracture risk when: a. T-score less than or equal to -2.5 after secondary causes excluded. b. T-score between -1.0 and -2.5 with secondary causes associated with high risk of fracture. c. 10-year probability of hip fracture more than or equal to 3% (based on FRAX score). d. 10-year probability of major osteoporosis related fracture more than or equal to 20% (based on FRAX score). Followup: People with diagnosed cases of osteoporosis or at high risk for fracture should have regular bone mineral density tests. For patients eligible for Medicare, routine testing is allowed once every 2 years. The testing frequency can be increased to one year for patients who have rapidly progressive disease or those who are receiving long-term steroid therapy. Electronically signed by: Pietro Hagen M.D. Narrative 03/12/2020 10:53 AM CDT COMPLETION DATE: 03/12/2020 10:30 AM ORDERING HEALTHCARE PROVIDER: VAISHNAVI CRUM STUDY DESCRIPTION: DEXA AXIAL SKELETON BONE DENSITY 1 OR MORE SITES CLINICAL INDICATIONS: screening osteoporosis. COMPARISON: None TECHNIQUE: Dual x-ray absorptiometry (DEXA) was performed using Nexstim system. GENERAL GUIDELINES: According to WHO guidelines, a T score of -1.0 or greater is normal, between -1.0 to -2.4 is osteopenia, and -2.5 or less is osteoporosis. Z score (instead of T score) is preferred for pediatric, young adults, premenopausal women and men under age of 50 years. In these patients, a Z score greater than or equal to -2.0 is considered to be in the expected range. FINDINGS: LEFT FEMORAL NECK: T-score -2.6. Bone mineral density 0.564 g/sq/cm. LEFT TOTAL HIP: T-score -1.1. Bone mineral density 0.806 g/sq/cm. LUMBAR SPINE: T-score -0.1. Bone mineral density 1.034 g/sq/cm. A FRAX score based upon a DXA study is not reported unless all of the following criteria are met. The patient: a. Is an untreated postmenopausal woman or a man age 50 or older. b. Has low bone mass (T-score between -1.0 and -2.5). c. Has no prior hip or vertebral fracture (clinical or morphometric). d. Has an evaluable hip for DXA study. Procedure Note Pietro Hagen MD - 03/12/2020 COMPLETION DATE: 03/12/2020 10:30 AM ORDERING HEALTHCARE PROVIDER: VAISHNAVI CRUM STUDY DESCRIPTION: DEXA AXIAL SKELETON BONE DENSITY 1 OR MORE SITES CLINICAL INDICATIONS: screening osteoporosis. COMPARISON: None TECHNIQUE: Dual x-ray absorptiometry (DEXA) was performed using Nexstim system. GENERAL GUIDELINES: According to WHO guidelines, a T score of -1.0 or greater is normal, between -1.0 to -2.4 is osteopenia, and -2.5 or less is osteoporosis. Z score (instead of T score) is preferred for pediatric, young adults, premenopausal women and men under age of 50 years. In these patients, a Z score greater than or equal to -2.0 is considered to be in the expected range. FINDINGS: LEFT FEMORAL NECK: T-score -2.6. Bone mineral density 0.564 g/sq/cm. LEFT TOTAL HIP: T-score -1.1. Bone mineral density 0.806 g/sq/cm. LUMBAR SPINE: T-score -0.1. Bone mineral density 1.034 g/sq/cm. A FRAX score based upon a DXA study is not reported unless all of the following criteria are met. The patient: a. Is an untreated postmenopausal woman or a man age 50 or older. b. Has low bone mass (T-score between -1.0 and -2.5). c. Has no prior hip or vertebral fracture (clinical or morphometric). d. Has an evaluable hip for DXA study. IMPRESSION: According to the World Health Organization criteria, based upon the left femoral neck bone mineral density (T score value of -2.6), the patient has osteoporosis. General Recommendations: 1. Consider an evaluation for secondary causes of osteoporosis in patients with low bone density. 2. All patients should be counseled on adequate intake of calcium (1200 mg/day), vitamin D (600-800 IU daily) and exercise. 3. The National Osteoporosis Foundation (NOF) guidelines recommend initiating pharmacological therapy, in addition to calcium, vitamin D and exercise, to reduce fracture risk when: a. T-score less than or equal to -2.5 after secondary causes excluded. b. T-score between -1.0 and -2.5 with secondary causes associated with high risk of fracture. c. 10-year probability of hip fracture more than or equal to 3% (based on FRAX score). d. 10-year probability of major osteoporosis related fracture more than or equal to 20% (based on FRAX score). Followup: People with diagnosed cases of osteoporosis or at high risk for fracture should have regular bone mineral density tests. For patients eligible for Medicare, routine testing is allowed once every 2 years. The testing frequency can be increased to one year for patients who have rapidly progressive disease or those who are receiving long-term steroid therapy. Electronically signed by: Pietro Hagen M.D. Vasihnavi Crum DO IMG DXA PROCEDURES Final R esult * Hepatitis C antibody (12/23/2019 10:12 AM CDT) Hep C Ab Nonreactive Nonreactive [facility] ([place]) Comment: Interpretive Data Nonreactive: Antibodies to HCV not detected. Does NOT exclude the possibility of recent exposure to HCV. Equivocal: Equivocal for HCV antibodies. Supplemental molecular testing will be automatically performed to determine infection status in accordance with current CDC screening recommendations. Reactive: Positive for HCV antibodies. This may represent current or past HCV infection. Supplemental molecular testing will be automatically performed to determine current infection status in accordance with current CDC screening recommendations. Interpretive data was last revised on 2019. Testing performed by: [facility], [address] [place] [address]., [id number] Blood specimen (specimen) 12/23/2019 10:12 AM CDT 12/23/2019 1:46 PM CDT Vaishnavi Crum DO LAB MICROBIOLOGY - GENERAL ORDERABLES Final Result [facility] ([place]) [facility] [place] [address] from Last 3 Months or Most Recently Relevant to Health Maintenance Insurance Advance Directives For more information, please contact: [phone] * Full Code (Latest Code Status on File) Date Activated Date Inactivated Comments 11/20/2024 11:48 AM 11/20/2024 6:21 PM * Full Code Date Activated Date Inactivated Comments 11/20/2024 11:48 AM 11/20/2024 11:48 AM * Full Code Date Activated Date Inactivated Comments 07/29/2019 9:09 AM 07/29/2019 3:55 PM * Full Code Date Activated Date Inactivated Comments 07/29/2019 9:09 AM 07/29/2019 9:09 AM * Full Code Date Activated Date Inactivated Comments 01/03/2019 9:10 AM 01/03/2019 4:13 PM Care Teams Gold Charmer Relationship Specialty Start Date End Date Jeny Ho PA [address] [place] [id number] PCP - General Physician Battery Container Finishing Hand 04/10/24 La Nena Figueroa NP Nurse Practitioner Gastroenterology 12/18/19 Darren Bower MD [address] [place] [id number] Referring Physician Hematology and Oncology 12/18/19
--- OUTSIDE RECORDS SUMMARY | 2025-01-07 00:43 | XMS_ITS | Clinical Summary ---
Author Organization [facility] Facility Address [address] [address] Care Team Providers Care Dielectric Tester Name Role Phone Unavailable Primary Care Provider Unavailabl e Social History Tobacco Use Types Packs/Day Years Used Date Smoking Tobacco: Never Assessed Comments Unknown Sex and Gender Information Value Date Recorded Sex Assigned at Not on file Legal Sex Female 12:00 PM EDT Gender Identity Not on file Sexual Orientation Not on file Plan of Treatment Health Maintenance Due Date Last Done Comments Breast Cancer Screening 1955 Colorectal Cancer Screening: Annual FOBT 2003 Colorectal Cancer Screening: Colonoscopy 2003 Colorectal Cancer Screening: Sigmoidoscopy 2003 Pneumococcal Vaccine: 50+ Ye ars (1 of 1 - PCV) 01/11/2004 Influenza Vaccine (Season Ended) 2025 Hepatitis B Vaccine Aged Out No longe r eligible based on patient's age to complete this topic
--- OUTSIDE RECORDS SUMMARY | 2025-01-07 00:43 | XMS_ITS | Encounter Summary ---
Author Organization [facility] Healthcare Address [address] [place] [address] Care Team Providers Care Environmental Scientists Name Role Phone Card, La Nena Oliver NP Unavailable [phone] Darren Bower MD Unavailable Ekaterina Crum DO Primary Care Provider [phone] Jeny Ho Primary Care Provider Reason for Visit * Reason Onset Date Comments Scheduling Appointments 03/11/2020 Called f or DEXA appointment Encounter Details Date Type Department Care Team (Late st Contact Info) Description 03/11/2020 Telephone [facility] [address] [place] [address] Chayo Padilla RT Scheduling Appointments (Called for DEXA appointment) Social History Tobacco Use Types Packs/Day Years Used Date Smoking Tobacco: Every Day Cigarettes 0.5 30 Smokeless Tobacco: Never Alcohol Use Standard Drinks/Week Comments Never 0 (1 standard drink = 0.6 oz pur e alcohol) AUDIT-C Answer Date Recorded Frequency of Alcohol Consumption Never 01/03/2019 Average Number of Drinks Not on file 019 Frequency of Binge Drinking Not on file 12/18 PHQ-2 Answer Date Recorded PHQ-2 Score 0 04/09/2019 Comments No Sex and Gender Information Value Date Recorded Sex Assigned at Not on file Legal Sex Female 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 Gender Identity Female 05/14/2024 12:29 PM CDT Sexual Orientation Straight 03/14/2020 8: 28 AM CDT documented as of this encounter Plan of Treatment Not on file documented as of this encounter Visit Diagnoses Not on filedocumented in this encounter Care Teams Environmental Scientists Relationship Specialty Start Date End Date Radames Ekaterina DO Fabián [address] [place] [id number] PCP - General Family Medicine 12/18/19 04/09/24 Jeny Ho PA [address] [place] [address] PCP - General Physician Water Service Dispatcher 04/10/24 La Nena Figueroa NP Nurse Practitioner Gastroenterology 12/18/19 Darren Bower MD [address] [place] [id number] Referring Physician Hematology and Oncology 12/18/19 documented as of this encounter
--- OUTSIDE RECORDS SUMMARY | 2025-01-07 00:43 | XMS_ITS | CONTINUITY OF CARE DOCUMENT ---
Author Name nelai trudyelizabeth Address Unknown Organization [facility] Address [address] [place] [address] Phone [phone] Care Team Providers Care Shoemaker Custom Name Role Phone Delfino TABARES, All Unavailable [phone] Jayson Butler MD Unavailable VAISHNAVI ZARAGOZA MD Unavailable PROBLEMS Condition Status Date Provider Notes Lung nodule active All Saleh MD Anemia active Hali A Childers DIGITAL DEVELOPER (Hist ory of) Hyperlipidemia active Hali A Childers DIGITAL DEVELOPER Hypertension active Hali A Childers DIGITAL DEVELOPER Syncope and collapse active Hali A Steel e DIGITAL DEVELOPER Edema - localized active Hali A Childers N P Tobacco abuse active Hali A Childers DIGITAL DEVELOPER Coronary atherosclerosis active All Slaeh MD ENCOUNTERS Date Type Provider Location Encounter Diag nosis - In-person encounter Office Visit All Saleh MD [facility] - In-person encounter Office Visit All Saleh MD [facility] Coronary atherosclerosis - In-person encounter Office Visit All Saleh MD [facility] AnemiaHyperlipidemiaHypertensionSyncope and collapseEdema - localizedTobacco abuse VITAL SIGNS Date Observation Value Provider Body Mass Index (Ratio) 35.71 kg/m2 Josh Saleh MD blood pressure, diastolic 61 mm[Hg] Michelle negrete Jim blood pressure, systolic 122 mm[Hg] Amna perez Jim oxygen saturation, oximetry 95 % Liz Jim pulse rate 77 /min Liz Jim weight E&M 189 [lb_av] Liz Jim blood pressure, cuff size large An penelope Jim height E&M 61 [in_i] Liz Jim Body Mass Index (Ratio) 39.67 kg/m2 Sund diaz Saleh MD blood pressure, cuff size regular Yan davisoni Jan blood pressure, diastolic 84 mm[Hg] Ke rri Jan blood pressure, systolic 142 mm[Hg] Sybil field Jan oxygen saturation, oximetry 98 % Olivia Jan respiratory rate E&M 12 /min Olivia Lashay headley pulse rate 86 /min Olivia Debbieneftali [facility] weight E&M 210 [lb_av] Olivia Ochoaflorie [facility] height E&M 61 [in_i] Olivia Ochoaflorie er blood pressure, diastolic 68 mm[Hg] Te ri Seth blood pressure, systolic 99 mm[Hg] Soliz oxygen saturation, oximetry 99 % Bella Ann respiratory rate E&M 15 /min Bella kirkland pulse rate 81 /min Bella Ann weight E&M 208 [lb_av] Bella Ann ALLERGIES Allergy Name Onset Date Reaction Criticality Status GABAPENTIN High Criticality active CELEBREX High Criticality active HISTORY OF MEDICATION USE Medication Status Instructions Dates Provider Indications Com ments lisinopril 10 mg tablet active TAKE 1 TABLET BY MOUTH EVERY DAY Ramon Dalton aspirin 81 mg tablet,delayed release (DR/EC) active Take 1 tablet by mouth once a day All Saleh MD lisinopril 10 mg tablet completed Take 1 tablet by mouth once a day - Olivia Montoya fluoxetine 20 mg capsule active Take 3 capsule by mouth once a day Olivia Montoya ferrous sulfate 325 mg (65 mg iron) tablet,delayed release (DR/EC) active TAKE 1 TABLET BY MOUTH DAILY WITH BREAKFAST Hali Childers NP furosemide 20 mg tablet completed TAKE 1 TABLET BY MOUTH ONCE DAILY - All Saleh MD metoprolol succinate 25 mg tablet extended release 24 hr completed - Hali Childers NP omeprazole 20 mg capsule,delayed release(DR/EC) active Take 1 capsule by mouth every other day Olivia Montoya allopurinol 100 mg tablet active Take 1 tablet by mouth once a day Olivia Montoya alendronate 70 mg tablet active Take 1 tablet by mouth once a week Olivia Montoya lisinopril 20 mg tablet completed - Hali Childers NP atorvastatin 10 mg tablet active Take 1 tablet by mouth every evening Olivia Montoya SOCIAL HISTORY Date Observation Value Provider drug use no Liz Jim alcohol use no Liz Jim smoking status Current every day smoker A monica Fernandez social history E&M 1PPD Hali Childers NP seatbelt usage 75 % Bella Ann caffeine use, averag e drinks per day 4+ Bella Ann drug use no Bella Ann alcohol use no Bella Ann smoking status Current every day smoker T christy Ann FUNCTIONAL STATUS Date Observation Value Provider HRA, CV Assess/Plan, Angina (inactive) Management Plan continue current therapy All Saleh MD FAMILY HISTORY Family Member Condition Mother [place] female <65 INSURANCE PROVIDERS Payer name Policy type / Coverage type [place] party ID [employer] FAMILY [employer] Medicaid 3 [id number] MARITO PEREZ HMO 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 Take 1 tablet by mouth every evening All Das [id number],C,bp ok [facility] [id number],C,n o more episodes b will with med changes c heck ccta as high risk score and has significant LM plaque also All Das [id number],C,u rged to quit l dct [facility] [id number],C,1 . No evidence of a deep vein thrombosis of the lower extremities bilaterally. 2 . Significant venous insufficiency of the great saphenous vein bilaterally. 3 . Possible monophasic flow in sfj b/l - more so on left side. mild edema if up on her feet for a long time a dvised re compression stockings normal uacr and tsh All Das [id number],C,r ecommend that she quits smoking c onsider CACS [facility] [id number],C, B P today: 99/68 All Das [id number],C,H as been having syncopal episodes, most recent in October 2022 with sudden syncope without pre syncopal sxs such as dizziness etc. Since that last episode she has not had any further episodes. Was at [facility] and they told her she was dehydrated gave fluids and sent home. will check echo, TSH, w ill stop the lasix, and decrease her lisinopril to 10 mg once daily since her BP is on the low side Delfino TABARES [id number],C,r ecommend that she quits smoking c onsider [facility] Hali Childers DIGITAL DEVELOPER [id number],C,c mplaints of LE swelling which she was taking lasix for it. w ill check TSH, echo,electrolytes, and venous dopplers, Hali Childers LAKESHA [id number],C,w hen at the hospital for her syncope she was told her blood counts were normal Hali Childers LAKESHA [id number],C,on statin Serena gonzalez Childers LAKESHA [id number],C, B P today: C onsider the [facility] Hali Childers DIGITAL DEVELOPER [id number],C,H as been having syncopal episodes, most recent in October 2022 with sudden syncope without pre syncopal sxs such as dizziness etc. Since that last episode she has not had any further episodes. Was at [facility] and they told her she was dehydrated gave fluids and sent home. will check echo, TSH, w ill stop the lasix, and decrease her lasix since her BP is on the low side Haligonzalez Childers LAKESHA :f/u recommended in 6 months Sun adonis Saleh MD Cardiology:cacs 411 w ill do ccta Delfino TABARES Cardiology: H er updated medication list for this problem includes: Atorvastatin 10 Mg Tablet (Atorvastatin) ..... Take 1 tablet by mouth every evening Delfino TABARES Cardiology:bp ok at home Delfino TABARES Cardiology:no more e pisodes b will with med changes c heck ccta as high risk score and has significant LM plaque also Delfino TABARES Cardiology:urged to quit l dct Delfino TABARES Cardiology:1. No angelique dence of a deep vein thrombosis of the lower extremities bilaterally. 2 . Significant venous insufficiency of the great saphenous vein bilaterally. 3 . Possible monophasic flow in sfj b/l - more so on left side. mild edema if up on her feet for a long time a dvised re compression stockings normal uacr and tsh Alldiaz Saleh MD Cardiology:recommend that she quits smoking c onsider CACS Alldiaz Saleh MD Cardiology: B P today: eep Delfino TABARES Cardiology:Has been having syncopal episodes, most recent in October 2022 with sudden syncope without pre syncopal sxs such as dizziness etc. Since that last episode she has not had any further episodes. Was at [facility] and they told her she was dehydrated gave fluids and sent home. will check echo, TSH, w ill stop the lasix, and decrease her lisinopril to 10 mg once daily since her BP is on the low side Alldiaz Saleh MD Cardiology:recommend that she quits smoking c onsider [facility] Hali Childers NP Cardiology:cmplaints of LE swelling which she was taking lasix for it. w ill check TSH, echo,electrolytes, and venous dopplers, Hali Childers NP Cardiology:when at [facility] for her syncope she was told her blood counts were normal Hail Childers NP Cardiology:on statin Hali hemphill NP Cardiology: B P today: C onsider the [facility] Hali Childers DIGITAL DEVELOPER Cardiology:Has been having syncopal episodes, most recent in October 2022 with sudden syncope without pre syncopal sxs such as dizziness etc. Since that last episode she has not had any further episodes. Was at [facility] and they told her she was dehydrated gave fluids and sent home. will check echo, TSH, w ill stop the lasix, and decrease her lasix since her BP is on the low side Hali Childers DIGITAL DEVELOPER Date Name Stress Regadenoson Low Dose Lung CT CT Angio Coronaries BASIC METABOLIC PANE L W/EGFR Creatinine, Serum CT, Coronary Calcium Score Low Dose Lung CT TSH, free T4, total T3 Venous Doppler Bilat eral LE - Reflux Complete Echo Microalb/Creatinine Urine, Random PROBNP, N TERMINAL HISTORY OF PROCEDURES Procedure Date Procedure Name Provider Procedure Notes S tatus CT- Coronary CA score All Saleh MD completed Counseling LDCT All Saleh MD compl eted
--- OUTSIDE RECORDS SUMMARY | 2025-01-07 00:43 | XMS_ITS | Clinical Summary ---
Author Organization [facility] Address [address] [place] [address] Phone Care Team Providers Care Water Attendant Name Role Phone Ekaterina Crum Primary Care Provider [phone] Allergies No known active allergies Medications omeprazole (PRILOSEC) 20 MG CAPSULE DELAYED RELEASE Take 20 mg by mouth daily. Active FLUoxetine (PROZAC) 20 MG Capsule Take 20 mg by mouth 3 times daily. Active lisinopril-hydr oCHLOROthiazide (PRINZIDE, ZESTORETIC) 10-12.5 MG Tablet Take 1 Tab by mouth daily. Active atorvastatin (LIPITOR) 10 MG Tablet Take 10 mg by mouth daily. 1 07/09/2019 Active MESALAMINE PO Take 800 mg by mouth 3 times daily. Active metoprolol tartrate (LOPRESSOR) 25 MG Tablet Take 25 mg by mouth daily. Extended release Active Active Problems Problem Noted Date Diagnosed Date Major depressive disorder, r ecurrent episode, moderate with anxious distress 07/09/2020 Ulcerative colitis 08/09/2016 Iron deficiency anemia due to chronic blood loss 08/09/2016 Iron deficiency 02/29/2016 Anemia, unspecified 02/16/2016 Leukocytosis 02/16/2016 Tobacco abuse 02/16/2016 Persistent cough for 3 weeks or longer 6 Immunizations Immunization Administration Dates Next Due Influenza, high-dose, trivalent, PF 06/04/2020 Family History Medical History Relation Name Comments Cancer Brother 1 Heart Disease Brother 2 Heart Disease Father Hypertension Father Stroke Father Diabetes Maternal Grandmother Relation Name Status Comments Brother 1 Brother 2 Father Maternal Grandmother Social History Tobacco Use Types Packs/Day Years Used Date Smoking Tobacco: Every Day Cigarettes 0.5 40 Smokeless Tobacco: Never Tobacco Cessation:Ready to Q uit: No; Counseling Given: No Alcohol Use Standard Drinks/Week Comments No 0 (1 standard drink = 0.6 oz pur e alcohol) Sexually Active Control Partners Comments Not Currently Male Comments No Sex and Gender Information Value Date Recorded Sex Assigned at Not on file Legal Sex Female 11:41 PM CDT Gender Identity Not on file Sexual Orientation Not on file Last Filed Vital Signs Vital Sign Reading Time Taken Comments Blood Pressure 151/69 11/03/2020 10:38 AM CDT Pulse 69 11/03/2020 10:38 AM CDT Temperature 35.9 C (96.6 F) 11/03/2020 10:38 AM CDT Respiratory Rate 20 11/03/2020 10:3 8 AM CDT Oxygen Saturation 99% 11/03/2020 10: 38 AM CDT Inhaled Oxygen Concentration - - Weight 90.6 kg (199 lb 12.8 oz) 021 10:38 AM CDT Height 160 cm (5' 3) 11/03/2020 10:38 AM CDT Body Mass Index 35.39 11/03/2020 10:38 AM CDT Plan of Treatment Health Maintenance Due Date Last Done Comments DEXA Bone Density 1955 Hepatitis C Virus (HCV) Screening 1955 Mammogram 1955 Cologuard 01/11/2004 Immunochemical Fecal Occult Blood 01/11/2004 Zoster Immunization (1 of 2) 01/11/2004 Pneumococcal Immunization (50+ years) (2 of 2 - PCV) 06/26/2020 06/26/2019, 07/21/2005 SARS-COV-2 Immunization ( season) 2024 07/26/2021, 12/03/2020, 11/05/2020 Influenza Immunization (Season Ended) 2025 06/04/2020, 05/20/2020, 06/26/2019, Additional history exists Respiratory Syncytial Virus (RSV) Immunization (Adult) (1 - 1-dose 75+ series) 2029 Colonoscopy 07/29/2029 07/29/2019, 07/29/2019 Colorectal Cancer Screening 07/29/2029 07/29/2019, 07/29/2019 DTaP/Tdap/Td Immunization Discontinued 04/15/2019 TdaP Immunization Completed 04/15/2019 Lung Cancer Screening Discontinued 05/12/2019, 016 Pneumococcal Immunization Combined Discontinued 06/26/2019, 07/21/2005 Hepatitis B Immunization Aged Out No longer eligible based on patient's age to complete this topic Human Papillomavirus (HPV) Immunization Aged Out No longer eligible based on patient's age to complete this topic Meningococcal Immunization (ACWY) Aged Out No longer eligible based on patient's age to complete this topic Rotavirus Immunization Aged Out No lo nger eligible based on patient's age to complete this topic Goals Goal Patient Goal Type Associated Problems Recent Progress Patient-Stated? 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) No Siria Dominguez LCSW Note: Goal: Patient will be able to report decreased grieving to a manageable level Goal Reviewed with: patient Readiness to change: Ready to change Department associated with goal: [facility] Steps to achieve goal: Patient counseled on stages of grief and tasks of mourning Patient counseled on new holiday traditions and coping with the holidays with new grief issues Procedures Procedure Name Priority Date/Time Associated Diagnosis Comments HM COLONOSCOPY Routine 07/29/2019 CT CHEST SCREENING WO Routine 05/12/2019 1:43 PM CDT Tobacco abuse Smoking greater than 30 pack years Current every day smoker from Last 3 Months or Most Recently Relevant to Health Maintenance Results * HM COLONOSCOPY (07/29/2019) Alexi Britt MD PROCEDURE/MINOR SURGICAL OR DERABLES Final Result * CT CHEST SCREENING WO (05/12/2019 1:43 PM CDT) Anatomical Region Laterality Modality Chest N/A Computed Tomogra phy 05/12/2019 2:11 PM CDT Impressions 05/12/2019 2:14 PM CDT IMPRESSION: 1. Indeterminate 5 mm ground-glass nodule in the right lower lobe. No solid nodules are noted. 2. Minimal centrilobular emphysema in the upper lungs. 3. Age-indeterminate compression fracture of T9, moderate in severity. 4. Other findings as above. Lung-RADS v1.1 category 2: Benign appearance or behavior. Recommendation: Continue annual screening LDCT in 12 months. Narrative 05/12/2019 2:14 PM CDT EXAM DESCRIPTION: CT CHEST SCREENING WO REASON FOR STUDY: Screening CT of the chest in a current smoker with a 40 pack year smoking history. Additional history: Family history of lung cancer. TECHNIQUE: Low dose CT scan of the chest was performed without intravenous contrast using helical scanning technique. The exam extends from the lung apices through the lung bases. Automatic exposure control was used as a dose optimization technique. NOTE: This study was performed for the specific purposes of lung cancer screening and is not an alternative to diagnostic chest CT. RADIATION DOSE: CT dose index volume (CTDIvol) = 2.88 mGy COMPARISON: CT of the chest dated 02/23/2016. FINDINGS: SMOKING RELATED LUNG DISEASE: There is minimal centrilobular emphysema in the upper lungs. LUNG NODULES: A faint ground-glass nodule is noted in the right lower lobe on image 117, measuring approximately 5 mm. This was not definitely present on the previous examination. No solid nodule noted in either lung. OTHER: Minimal areas of peripheral scarring. No focal consolidation. The airway is widely patent. Mild diffuse bronchial wall thickening. Normal bronchial caliber. There is no suspicious lymphadenopathy in the chest. Heart size is normal. Mild atherosclerotic calcifications in the coronary arteries. No pericardial thickening or effusion. The thoracic aorta is mildly atherosclerotic, but normal in course and caliber. Central pulmonary arteries are normal in caliber. Limited images through the upper abdomen are unremarkable, except for postoperative changes of cholecystectomy, and a partially exophytic cyst in the upper pole of the left kidney. Examination of bone windows demonstrates no suspicious lytic or blastic lesions. There is a new moderate compression fracture involving the vertebral body T9. THIS IS AN ELECTRONICALLY VERIFIED FINAL REPORT 05/12/2019 2:11 PM - Electronically signed by Gian Shah M.D. RL: RL Report ID: [id number] Reading Location: [id number] Procedure Note Gian Shah MD - 05/12/2019 EXAM DESCRIPTION: CT CHEST SCREENING WO REASON FOR STUDY: Screening CT of the chest in a current smoker with a 40 pack year smoking history. Additional history: Family history of lung cancer. TECHNIQUE: Low dose CT scan of the chest was performed without intravenous contrast using helical scanning technique. The exam extends from the lung apices through the lung bases. Automatic exposure control was used as a dose optimization technique. NOTE: This study was performed for the specific purposes of lung cancer screening and is not an alternative to diagnostic chest CT. RADIATION DOSE: CT dose index volume (CTDIvol) = 2.88 mGy COMPARISON: CT of the chest dated 02/23/2016. FINDINGS: SMOKING RELATED LUNG DISEASE: There is minimal centrilobular emphysema in the upper lungs. LUNG NODULES: A faint ground-glass nodule is noted in the right lower lobe on image 117, measuring approximately 5 mm. This was not definitely present on the previous examination. No solid nodule noted in either lung. OTHER: Minimal areas of peripheral scarring. No focal consolidation. The airway is widely patent. Mild diffuse bronchial wall thickening. Normal bronchial caliber. There is no suspicious lymphadenopathy in the chest. Heart size is normal. Mild atherosclerotic calcifications in the coronary arteries. No pericardial thickening or effusion. The thoracic aorta is mildly atherosclerotic, but normal in course and caliber. Central pulmonary arteries are normal in caliber. Limited images through the upper abdomen are unremarkable, except for postoperative changes of cholecystectomy, and a partially exophytic cyst in the upper pole of the left kidney. Examination of bone windows demonstrates no suspicious lytic or blastic lesions. There is a new moderate compression fracture involving the vertebral body T9. THIS IS AN ELECTRONICALLY VERIFIED FINAL REPORT 05/12/2019 2:11 PM - Electronically signed by Gian Shah M.D. RL: MITZY Report ID: [id number] Reading Location: [id number] IMPRESSION: 1. Indeterminate 5 mm ground-glass nodule in the right lower lobe. No solid nodules are noted. 2. Minimal centrilobular emphysema in the upper lungs. 3. Age-indeterminate compression fracture of T9, moderate in severity. 4. Other findings as above. Lung-RADS v1.1 category 2: Benign appearance or behavior. Recommendation: Continue annual screening LDCT in 12 months. [facility] Cheli TABARES [facility] ORDERABLES Final Result from Last 3 Months or Most Recently Relevant to Health Maintenance Insurance MEDICARE C [employer]ET[employer] Care Teams Water Attendant Relationship Specialty Start Date End Date Ekaterina Crum DO 2 [facility] [address] [place] [address] [place] [id number] PCP - General Family Medicine 10/11/20
--- OUTSIDE RECORDS SUMMARY | 2025-01-07 00:43 | XMS_ITS | Referral Summary ---
Author Organization [facility] Address [address] [place] [address] Care Team Providers Care Control Systems Designer Name Role Phone Card, La Nena Oliver NP Unavailable [phone] Darren Bower MD Unavailable Jeny Ho Primary Care Provider Encounters Date Type Department Care Team Description 11/20/2024 12:58 PM CDT Anesthesia Event [address] [address] Sachin Ovalle DO 11/20/2024 1:30 PM CDT - 11/20/2024 2:00 PM CDT Surgery [address] [address] Alexi Britt MD COLON CONTROL BLEEDING 11/20/2024 11:36 AM CDT - 11/20/2024 2:15 PM CDT Hospital Encounter [address] [address] Alexi Britt MD Discharge Disposition: Discharge to home or self care from Last 3 Months Allergies Active Allergy Reactions Criticality Noted Date [...] 11/01/19 23 Active allopurinoL (ZYLOPRIM) 100 mg tabletIndications:Given laney blood uric acid level TAKE 1 [...] 07/16/2022 Assessment & Plan (07/16/2022 7:04 PM TRANSACTIONAL PARALEGAL): X-ray of lumbar spine. Titrating dose of gabapentin. Referral to pain management Chronic neck pain 07/16/2022 Assessment & Plan (07/16/2022 7:04 PM TRANSACTIONAL PARALEGAL): X-ray the cervical spine. Will trial gabapentin to titrating dose of 302-3 times daily. Referral to pain management Gross hematuria 06/13/2022 Assessment & Plan (06/15/2022 8:13 PM CDT): Labs ordered, will follow. Dependent edema 04/13/2022 Personal history of colonic polyps 03/31/2022 Overview (03/31/2022): Added automatically from request for surgery [id number] Arthralgia of multiple sites 02/12/2022 Assessment & [...] Assessment & Plan (12/27/2020 2:53 PM CDT): Njyty-cg-nqhzwm exercises encouraged. Handout given. Recommended physical therapy, [...] counseling. Assessment & Plan (07/16/2022 7:05 PM TRANSACTIONAL PARALEGAL): BMI Follow-up includes: exercise counseling. Assessment & [...] GI. Assessment & Plan (09/19/2019 1:19 PM TRANSACTIONAL PARALEGAL): Pt says abdominal pain, diarrhea, and nausea resolved a few days after last office visit and did not need to take budesonide. She is taking Lialda 2.4 g daily and doing well. Continue current regimen. Assessment & Plan (08/22/2019 1:31 PM TRANSACTIONAL PARALEGAL): Pt restarted on medication about 3 weeks [...] 06/16/2022 LABPLAT 439 (H) 06/16/2022 Stable at [facility] time - states that it was normal ED wwill need to get records from [place] Assessment & Plan (06/15/2022 8:16 PM CDT): [...] hematology. Assessment & Plan (08/22/2019 1:04 PM TRANSACTIONAL PARALEGAL): EGD and colonoscopy ruled out GI bleed as cause for anemia. Pt says she follows with Dr. Bower at [facility] for her anemia. No further workup needed [...] (03/31/2022): Added automatically from request for surgery [id number] Elevated blood uric acid level 01/13/2022 02/10/2022 [...] cataract surgery. Left ankle swelling 04/24/2021 12/06/19 Assessment & Plan (04/24/2021 7:53 PM CDT): No obvious swelling today, lab ordered. Pain of toe of left foot 04/24/2021 Assessment & Plan (04/24/2021 7:53 PM CDT): Lab ordered, will follow. Tobacco use disorder 02/04/2021 021 Diarrhea 02/04/2021 12/05/2021 BMI 34.0-34.9,adult 03/19/2020 04/19/20 20 Elevated alkaline phosphatase level 08/22/2019 12/18/2019 Assessment & Plan (09/19/2019 12:39 PM TRANSACTIONAL PARALEGAL): Repeat hepatic function panel at last appointment showed normal LFT's. Assessment & Plan (08/22/2019 1:34 PM TRANSACTIONAL PARALEGAL): Pt says Mariel Mercedes had drawn labs in Jun 2019 and saw elevated alk phos. Appears alk phos then was 246. Will repeat hepatic function panel today. Nausea 08/22/2019 09/19/2019 Assessment & Plan (08/22/2019 1:35 PM TRANSACTIONAL PARALEGAL): Having some nausea with BM but no vomiting. Likely related to exacerbation of colitis. Diarrhea 08/22/2019 09/19/2019 Assessment & Plan (08/22/2019 1:33 PM TRANSACTIONAL PARALEGAL): Pt says she can have up to 10+ BM's daily since colonoscopy. Will get stool studies to rule out infectious origin; however, this is likely exacerbation of microscopic colitis. Will have her continue Apriso and start budesonide 9mg daily. She was instructed to stick to bland, low fiber diet until symptoms resolve. Leukocytosis 02/16/2016 12/18/2019 Immunizations Immunization Administration Dates Next Due Influenza, [...] 06/13/2022 Pneumococcal Polysaccharide PPV23 06/26/2019,09/2004 Tdap 04/15/2019 Social History Tobacco Use Types Packs/Day Years [...] on file Legal Sex Female 8:33 AM TRANSACTIONAL PARALEGAL Gender Identity Female 05/14/2024 12:29 PM CDT Sexual Orientation Straight 03/14/2020 8: 28 AM CDT Last Filed Vital Signs Vital Sign Reading [...] 11/20/2024 11:55 AM CDT Plan of Treatment Not on file Procedures Procedure Name Priority Date/Time Associated Diagnosis [...] Britt MD - 11/20/2024 11:43 AM CDT [facility] Patient Name: Ernestina Sullivan Procedure Date: 11/20/2024 11:43 AM Date of : 1955 Admit Type: Outpatient Age: 69 Gender: Female Attending MD: Alexi Britt M.D. Room: [facility] ENDOSCOPY ROOM 1 Note Status: Finalized Patient Profile: This is a 69 year old female. Noted patient hasiron deficiency anemia and concern about GI blood loss Procedure: Upper GI endoscopy Indications: Iron deficiency anemia secondary to chronic blood loss, Iron deficiency anemia Referring MD: EVELYN ParrC Providers: Alexi Britt M.D. Impression: - Diverticulum [...] passed under direct vision. The Endoscope GIF-H190 [id number] was introduced through the mouth, and advanced [...] 11:43 AM Procedure Code(s): --- Professional --- 49543, Esophagogastroduodenoscopy, flexible, transoral; diagnostic, including collection of specimen(s) by brushing or washing, when performed (separate procedure) Diagnosis Code(s): --- Professional --- D50.0, Iron deficiency anemia secondary to blood loss (chronic) D50.9, Iron deficiency anemia, unspecified CPT copyright 2020 [employer]. All rights reserved. The codes documented in this report are preliminary and upon can bander operator reviewmay be revised to meet current compliance requirements. Recognized by the [employer] for promoting quality in endoscopy Alexi Britt MD ENDOSCOPY PROCEDURES Final Result * Colonoscopy (11/20/2024 11:42 AM CDT) Anatomical Region Laterality Modality Other Narrative Procedure Note Alexi Britt MD - 11/20/2024 11:[address] [facility] Patient Name: Ernestina Sullivan Procedure Date: 11/20/2024 11:42 AM Date of : 1955 Admit Type: Outpatient Age: 69 Gender: Female Attending MD: Alexi Britt M.D. Room: [facility] ENDOSCOPY ROOM 1 Note Status: [...] under direct vision. The Pediatric Colonoscope PCF-H190L [id number] was introducedthrough the anus and advanced to [...] 11:42 AM Procedure Code(s): --- Professional --- 11612, Colonoscopy, flexible; with control of bleeding, any method Diagnosis Code(s): --- Professional --- K64.8, Other hemorrhoids K55.20, Angiodysplasia of colon without hemorrhage CPT copyright 2020 [employer]. All rights reserved. The codes documented in this report are preliminary and upon can bander operator reviewmay be revised to meet current compliance requirements. Recognized by the [place] for promoting quality [...] Dual x-ray absorptiometry (DEXA) was performed using Cell Genesys system. GENERAL GUIDELINES: According to WHO guidelines, [...] Dual x-ray absorptiometry (DEXA) was performed using Cell Genesys system. GENERAL GUIDELINES: According to WHO guidelines, [...] therapy. Electronically signed by: Pietro Hagen M.D. Vaishnavi Crum DO IMG DXA PROCEDURES Final R esult * Hepatitis C antibody (12/23/2019 10:12 AM CDT) Hep C Ab Nonreactive Nonreactive [facility] (MY[facility]) Comment: Interpretive Data Nonreactive: Antibodies to HCV [...] last revised on 2019. Testing performed by: [facility], [address] [place] [address], [place]., [address] Blood specimen (specimen) 12/23/2019 10:12 AM CDT 12/23/2019 1:46 PM CDT Vaishnavi Crum DO LAB MICROBIOLOGY - GENERAL ORDERABLES Final Result [facility] ([place]) 1 [facility] Department [place] [address] from Last 3 Months or Most Recently Relevant to Health Maintenance [place] [address] [employer] [facility] ADVANTRA Advance Directives For more information, please contact: [phone] * Full Code (Latest Code Status on [...] 9:10 AM 01/03/2019 4:13 PM Care Teams Control Systems Designer Relationship Specialty Start Date End Date Jeny Ho PA [address] [place] [address] PCP - General Physician Prototype Special Build 04/10/24 La Nena Figueroa NP Nurse Practitioner Gastroenterology 12/18/19 Darren Bower MD [address] [address] Referring Physician Hematology and Oncology 12/18/19
--- NOTE | 2025-02-02 13:59 | PC.NURSE ---
Report to the Outpatient Waiting Room, entrance under the green pavilion located off [facility], at time _8AM on date __02/18/25 . Planned Procedure Time: __10 AM .? Time changes happen often and if your time is changed the preop area will call you the afternoon before. - You and your visitor will be asked to self-screen and do not enter if you have any COVID symptoms. Please call surgeon if you need to reschedule. - A mask is optional within the hospital at this time. Patients may have clear liquids (water, carbonated beverages, clear teas, apple juice) until 3 hours prior to surgery ( 7AM) with a maximum of 20 ounces. - No food from midnight until time of surgery and no smoking, or chewing tobacco (or any form of nicotine). No chewing gum, candy or mints. - Take only the following medications with a SIP of water on the morning of surgery: __FLUOXETINE,METOPROLOL DO NOT STOP ANY OF YOUR OTHER PRESCRIPTION MEDICATIONS PRIOR TO SURGERY EXCEPT THE FOLLOWING Hold all vitamins and supplements for 3 days per anesthesiologist.LAST DOSE 02/14/25 Medications to discontinue per physician none Date to take last dose Please no make-up, nail romansh, hairspray, perfume, deodorant, or body powder the day of surgery.? No jewelry (including any body piercings) or valuables the day of surgery, leave them at home.? Please take a shower or bath the night before, or the morning of, surgery with an antibacterial soap.? Wear comfortable, loose fitting clothing.? Children are encouraged to wear pajamas. - Jewelry must be removed prior to entering the operating room.? Rings and piercings that are not removed may be cut off. - The hospital will not accept responsibility for valuables.? - Please leave all valuables, including medications, at home the day of surgery. If you are going home after surgery, a licensed bus driver school must drive you home.? - NO public transportation without another adult if you receive anesthesia. - We recommend that an adult stay with you for 24 hours following discharge. - We also recommend that you do not drive, make important decision, drink alcoholic beverages, or take any drugs that were not prescribed by your health care provider for at least 24 hours after your discharge time. For Pediatric surgeries, we recommend two adults accompany the child home. Follow any additional instructions given to you from your surgeon. VERBAL AND WRITTEN instructions given to __PATIENT and asked if any additional questions and then verbalized understanding. Patient advised to call surgeon office or pre surgery nurse liaison [phone] if any additional questions.
[2025-02-02 14:06] VITALS: BMI 35.6
[2025-02-02 14:56] VITALS: BP 128/57; PULSE 66; RESP 18; TEMP 36.6; O2SAT 96
[2025-02-18] VITALS (13 sets, daily range): BP systolic 103–155; BP diastolic 42–68; PULSE 67–77; RESP 11–17; TEMP 35.7–36.7; O2SAT 92–100; BMI 35.4
--- OUTSIDE RECORDS SUMMARY | 2025-02-18 00:47 | XMS_ITS | Clinical Summary ---
Author Organization [facility] Address [address] [place] [address] Phone Care Team Providers Care Pearler Name Role Phone Ekaterina Crum Primary Care Provider [phone] Allergies No known active allergies Medications omeprazole [...] Type Associated Problems Recent Progress Patient-Stated? Author [facility] Health On track( 10:56 AM MANAGEMENT SPECIALIST) Yes Siria Dominguez LCSW Note: I want to feel less angry towards my step-daughter Goal Reviewed with: patient Readiness to change: Ready to change Department associated with goal: [facility] Steps to achieve goal: Patient to be educated on stages of grief and tasks of mourning Patient to be educated/counseled on coping with anger [facility] Health On track( 020 10:56 AM MANAGEMENT SPECIALIST) No Siria Dominguez LCSW Note: Goal: Patient will be able to report decreased grieving to a manageable level Goal Reviewed with: patient Readiness to change: Ready to change Department associated with goal: [facility] Steps to achieve goal: [...] Gian Shah M.D. RL: MITZY Report ID: [id number] Reading Location: [place] [address] Procedure Note Gian Shah MD - 05/12/2019 [...] Gian Shah M.D. RL: MITZY Report ID: [id number] Reading Location: [id number] IMPRESSION: 1. Indeterminate 5 mm ground-glass nodule [...] Maintenance Insurance MEDICARE C AETNA Care Teams Pearler Relationship Specialty Start Date End Date Ekaterina Crum DO [address] [place] [address] DR BONILLA [address] [place] [address] PCP - General Family Medicine 10/11/20
--- OUTSIDE RECORDS SUMMARY | 2025-02-18 00:47 | XMS_ITS | Referral Summary ---
Author Organization [facility] Address [address] [place] [address] Care Team Providers Care Geospatial Systems Integrator Name Role Phone Card, La Nena Oliver NP Unavailable [phone] Darren Bower MD Unavailable Jeny Ho Primary Care Provider Encounters Date Type Department Care Team Description 11/20/2024 12:58 PM CDT Anesthesia Event [address] [address] Sachin Ovalle DO 11/20/2024 1:30 PM CDT - 11/20/2024 2:00 PM CDT Surgery [address] [address] Alexi Britt MD COLON CONTROL BLEEDING 11/20/2024 11:36 AM CDT - 11/20/2024 2:15 PM CDT Hospital Encounter [address] [address] Alexi Britt MD Discharge Disposition: Discharge to [...] 11/01/19 23 Active allopurinoL (ZYLOPRIM) 100 mg tabletIndications:[place] blood uric acid level TAKE 1 [...] 07/16/2022 Assessment & Plan (07/16/2022 7:04 PM TERMINAL OPERATIONS MANAGER): X-ray of lumbar spine. Titrating dose of gabapentin. Referral to pain management Chronic neck pain 07/16/2022 Assessment & Plan (07/16/2022 7:04 PM TERMINAL OPERATIONS MANAGER): X-ray the cervical spine. Will trial gabapentin to titrating dose of 302-3 times daily. Referral to pain management Gross hematuria 06/13/2022 Assessment & Plan (06/15/2022 8:13 PM CDT): Labs ordered, will follow. Dependent edema 04/13/2022 Personal history of colonic polyps 03/31/2022 Overview (03/31/2022): Added automatically from request for surgery [id number] Arthralgia of multiple sites 02/12/2022 Assessment & [...] Assessment & Plan (12/27/2020 2:53 PM CDT): Bxjgi-tc-odwevg exercises encouraged. Handout given. Recommended physical therapy, [...] counseling. Assessment & Plan (07/16/2022 7:05 PM TERMINAL OPERATIONS MANAGER): BMI Follow-up includes: exercise counseling. Assessment & [...] GI. Assessment & Plan (09/19/2019 1:19 PM TERMINAL OPERATIONS MANAGER): Pt says abdominal pain, diarrhea, and nausea resolved a few days after last office visit and did not need to take budesonide. She is taking Lialda 2.4 g daily and doing well. Continue current regimen. Assessment & Plan (08/22/2019 1:31 PM TERMINAL OPERATIONS MANAGER): Pt restarted on medication about 3 weeks [...] 06/16/2022 LABPLAT 439 (H) 06/16/2022 Stable at [facility] time - states that it was normal ED wwill need to get records from [place] Assessment & Plan (06/15/2022 8:16 PM CDT): [...] hematology. Assessment & Plan (08/22/2019 1:04 PM TERMINAL OPERATIONS MANAGER): EGD and colonoscopy ruled out GI bleed as cause for anemia. Pt says she follows with Dr. Bower at [facility] for her anemia. No further workup [...] (03/31/2022): Added automatically from request for surgery [id number] Elevated blood uric acid level 01/13/2022 02/10/2022 [...] 12/18/2019 Assessment & Plan (09/19/2019 12:39 PM TERMINAL OPERATIONS MANAGER): Repeat hepatic function panel at last appointment showed normal LFT's. Assessment & Plan (08/22/2019 1:34 PM TERMINAL OPERATIONS MANAGER): Pt says Mariel Mercedes had drawn labs in Jun 2019 and saw elevated alk phos. Appears alk phos then was 246. Will repeat hepatic function panel today. Nausea 08/22/2019 09/19/2019 Assessment & Plan (08/22/2019 1:35 PM TERMINAL OPERATIONS MANAGER): Having some nausea with BM but no vomiting. Likely related to exacerbation of colitis. Diarrhea 08/22/2019 09/19/2019 Assessment & Plan (08/22/2019 1:33 PM TERMINAL OPERATIONS MANAGER): Pt says she can have up to [...] on file Legal Sex Female 8:33 AM TERMINAL OPERATIONS MANAGER Gender Identity Female 05/14/2024 12:29 PM CDT [...] Age: 69 Gender: Female Attending MD: Alexi Birtt M.D. Room: [facility] [...] passed under direct vision. The Endoscope GIF-H190 [id number] was introduced through the mouth, and advanced [...] 11:43 AM Procedure Code(s): --- Professional --- 66330, Esophagogastroduodenoscopy, flexible, transoral; diagnostic, including collection of specimen(s) by brushing or washing, when performed (separate procedure) Diagnosis Code(s): --- Professional --- D50.0, Iron deficiency anemia secondary to blood loss (chronic) D50.9, Iron deficiency anemia, unspecified CPT copyright 2020 [place] [employer]. All rights reserved. The codes documented in this report are preliminary and upon crochet machine operator reviewmay be revised to meet current compliance requirements. Recognized by the [place] [employer] for promoting quality in endoscopy Alexi Britt MD ENDOSCOPY PROCEDURES Final Result * Colonoscopy (11/20/2024 11:42 AM CDT) Anatomical Region Laterality Modality Other Narrative Procedure Note Alexi Britt MD - 11/20/2024 11:42 AM CDT [facility] Patient Name: Ernestina Sullivan Procedure [...] under direct vision. The Pediatric Colonoscope PCF-H190L [id number] was introducedthrough the anus and advanced to [...] 11:42 AM Procedure Code(s): --- Professional --- 01210, Colonoscopy, flexible; with control of bleeding, any method Diagnosis Code(s): --- Professional --- K64.8, Other hemorrhoids K55.20, Angiodysplasia of colon without hemorrhage CPT copyright 2020 [place] [employer]. All rights reserved. The codes documented in this report are preliminary and upon crochet machine operator reviewmay be revised to meet current compliance requirements. Recognized by the [place] [employer] for promoting quality [...] Dual x-ray absorptiometry (DEXA) was performed using [employer] system. GENERAL GUIDELINES: According to WHO guidelines, [...] Dual x-ray absorptiometry (DEXA) was performed using [employer] system. GENERAL GUIDELINES: According to WHO guidelines, [...] on 2019. Testing performed by: [facility], [address] [place] [address], [place]., [address] Blood specimen (specimen) 12/23/2019 10:12 AM CDT 12/23/2019 1:46 PM CDT Vaishnavi Crum DO LAB MICROBIOLOGY - GENERAL ORDERABLES Final Result [facility] ([place]) 1 [facility] [place] [address] from Last 3 Months or Most Recently Relevant to Health Maintenance [place] [address] [employer] [facility] Advance Directives For more information, please contact: [phone] * Full Code (Latest Code Status on [...] 9:10 AM 01/03/2019 4:13 PM Care Teams Geospatial Systems Integrator Relationship Specialty Start Date End Date Jeny Ho PA [address] [place] [address] PCP - General Physician Lathe Puller 04/10/24 La Nena Figueroa NP Nurse Practitioner Gastroenterology 12/18/19 Darren Bower MD [address] [address] Referring Physician Hematology and Oncology 12/18/19
--- OUTSIDE RECORDS SUMMARY | 2025-02-18 00:47 | XMS_ITS | Clinical Summary ---
Author Organization [facility] Address [address] [place] [address] Care Team Providers Care Paper Cutting Machine Operator Name Role Phone Card, La Nena Oliver NP Unavailable [phone] Darren Bower MD Unavailable Jeny Ho [...] 11/01/19 23 Active allopurinoL (ZYLOPRIM) 100 mg tabletIndications:[place] blood uric acid level TAKE 1 [...] 07/16/2022 Assessment & Plan (07/16/2022 7:04 PM CITY BAILIFF): X-ray of lumbar spine. Titrating dose of gabapentin. Referral to pain management Chronic neck pain 07/16/2022 Assessment & Plan (07/16/2022 7:04 PM CITY BAILIFF): X-ray the cervical spine. Will trial gabapentin to titrating dose of 302-3 times daily. Referral to pain management Gross hematuria 06/13/2022 Assessment & Plan (06/15/2022 8:13 PM CDT): Labs ordered, will follow. Dependent edema 04/13/2022 Personal history of colonic polyps 03/31/2022 Overview (03/31/2022): Added automatically from request for surgery [id number] Arthralgia of multiple sites 02/12/2022 Assessment & [...] Assessment & Plan (12/27/2020 2:53 PM CDT): Ejdug-vd-ozpvhz exercises encouraged. Handout given. Recommended physical therapy, [...] counseling. Assessment & Plan (07/16/2022 7:05 PM CITY BAILIFF): BMI Follow-up includes: exercise counseling. Assessment & [...] GI. Assessment & Plan (09/19/2019 1:19 PM CITY BAILIFF): Pt says abdominal pain, diarrhea, and nausea resolved a few days after last office visit and did not need to take budesonide. She is taking Lialda 2.4 g daily and doing well. Continue current regimen. Assessment & Plan (08/22/2019 1:31 PM CITY BAILIFF): Pt restarted on medication about 3 weeks [...] ED wwill need to get records from [place] Assessment & Plan (06/15/2022 8:16 PM CDT): [...] hematology. Assessment & Plan (08/22/2019 1:04 PM CITY BAILIFF): EGD and colonoscopy ruled out GI bleed as cause for anemia. Pt says she follows with Dr. Bower at [facility] for her anemia. No further workup needed [...] (03/31/2022): Added automatically from request for surgery [id number] Elevated blood uric acid level 01/13/2022 02/10/2022 [...] 12/18/2019 Assessment & Plan (09/19/2019 12:39 PM CITY BAILIFF): Repeat hepatic function panel at last appointment showed normal LFT's. Assessment & Plan (08/22/2019 1:34 PM CITY BAILIFF): Pt says Mariel Mercedes had drawn labs in Jun 2019 and saw elevated alk phos. Appears alk phos then was 246. Will repeat hepatic function panel today. Nausea 08/22/2019 09/19/2019 Assessment & Plan (08/22/2019 1:35 PM CITY BAILIFF): Having some nausea with BM but no vomiting. Likely related to exacerbation of colitis. Diarrhea 08/22/2019 09/19/2019 Assessment & Plan (08/22/2019 1:33 PM CITY BAILIFF): Pt says she can have up to [...] CDT - 11/20/2024 2:00 PM CDT Surgery [facility] [address] [address] Alexi Britt MD COLON CONTROL BLEEDING 11/20/2024 12:58 PM CDT Anesthesia Event [address] [address] Sachin Ovalle DO 11/20/2024 11:36 AM CDT - 11/20/2024 2:15 PM CDT Hospital Encounter [address] [address] Alexi Britt MD Discharge Disposition: Discharge to [...] UPPER GASTROINTESTINAL ENDOSCOPY 5 yrs ago in [place] POLYPECTOMY CARPAL TUNNEL RELEASE 08/20/1999 - 08/19/2000 Right CHOLECYSTECTOMY 08/20/2001 - 08/19/2002 TUBAL LIGATION 08/20/1997 - 08/19/1998 COLONOSCOPY 08/20/2013 - 08/19/2014 in [place] UMBILICAL HERNIA REPAIR 06/20/2019 - 07/19/2019 CATARACT [...] Parker E Dunsing Diabetes Maternal Grandmother Mery [place] Arthritis Mother Chrissy E Dunsing Cancer Mother Chrissy E Dunsing Ovarian cancer Mother Chrissy E Dunsing Diabetes Mother's Sister Rebecca Schafer Diabetes Paternal Grandmother Mohini Coles Dunsing Vision loss Paternal Grandmother Moihni Coles Dunsing Breast cancer Neg Hx Thyroid [...] on file Legal Sex Female 8:33 AM CITY BAILIFF Gender Identity Female 05/14/2024 12:29 PM CDT [...] Cervical Cancer Screening 01/03/2024 01/02/2023 Covid-19 Vaccine (4 - 2023-2 5 season) 2024 07/26/2021, 12/03/2020, 11/05/2020 Influenza Vaccine (#1) 2025 , 05/18/2021, 06/04/2020, Additional history exists Fall Risk [...] Britt MD - 11/20/2024 11:43 AM CDT [facility] Patient Name: Ernestina Sullivan Procedure Date: 11/20/2024 11:43 AM Date of : 1955 Admit Type: Outpatient Age: 69 Gender: Female Attending MD: Alexi Britt M.D. Room: [facility] ENDOSCOPY ROOM 1 Note Status: Finalized Patient [...] passed under direct vision. The Endoscope GIF-H190 [id number] was introduced through the mouth, and advanced [...] 11:43 AM Procedure Code(s): --- Professional --- 97745, Esophagogastroduodenoscopy, flexible, transoral; diagnostic, including collection of specimen(s) by brushing or washing, when performed (separate procedure) Diagnosis Code(s): --- Professional --- D50.0, Iron deficiency anemia secondary to blood loss (chronic) D50.9, Iron deficiency anemia, unspecified CPT copyright 2020 [place] [employer]. All rights reserved. The codes documented in this report are preliminary and upon discharge coordinator reviewmay be revised to meet current compliance requirements. Recognized by the [place] [employer] for promoting quality [...] MD: Alexi Britt M.D. Room: [facility] ROOM 1 Note Status: Finalized Patient [...] under direct vision. The Pediatric Colonoscope PCF-H190L [id number] was introducedthrough the anus and advanced to [...] 11:42 AM Procedure Code(s): --- Professional --- 93754, Colonoscopy, flexible; with control of bleeding, any method Diagnosis Code(s): --- Professional --- K64.8, Other hemorrhoids K55.20, Angiodysplasia of colon without hemorrhage CPT copyright 2020 [employer]. All rights reserved. The codes documented in this report are preliminary and upon discharge coordinator reviewmay be revised to meet current compliance requirements. Recognized by the [place] [employer] for promoting quality [...] Dual x-ray absorptiometry (DEXA) was performed using [facility] system. GENERAL GUIDELINES: According to WHO guidelines, [...] Dual x-ray absorptiometry (DEXA) was performed using [facility] system. GENERAL GUIDELINES: According to WHO guidelines, [...] Hep C Ab Nonreactive Nonreactive [facility] ([place]) Comment: Interpretive Data Nonreactive: Antibodies to HCV [...] last revised on 2019. Testing performed by: [facility], [address] [place] [address]., [address] Blood specimen (specimen) 12/23/2019 10:12 AM CDT 12/23/2019 1:46 PM CDT Vaishnavi Crum DO LAB MICROBIOLOGY - GENERAL ORDERABLES Final Result [facility] ([place]) 1 [facility] [place] [address] from Last 3 Months or Most Recently Relevant to Health Maintenance Insurance Advance Directives For more information, please contact: [phone] * Full Code (Latest Code Status on [...] 9:10 AM 01/03/2019 4:13 PM Care Teams Paper Cutting Machine Operator Relationship Specialty Start Date End Date Jeny Ho PA [address] [place] [address] PCP - General Physician Pipe Fitter Welding 04/10/24 La Nena Figueroa NP Nurse Practitioner Gastroenterology 12/18/19 Darren Bower MD [address] [place] [address] Referring Physician Hematology and Oncology 12/18/19
--- OUTSIDE RECORDS SUMMARY | 2025-02-18 00:47 | XMS_ITS | Encounter Summary ---
Author Organization [facility] Address [address] [place] [address] Care Team Providers Care Insurance Premium Auditor Name Role Phone Card, La Nena Oliver NP Unavailable [phone] Darren Bower MD Unavailable Ekaterina Crum DO Primary Care Provider [phone] Jeny Ho Primary Care Provider Reason for Visit * Reason Onset Date Comments Scheduling Appointments 03/11/2020 Called f or DEXA appointment Encounter Details Date Type Department Care Team (Late st Contact Info) Description 03/11/2020 Telephone [facility] Center [address] [place] [address] Chayo Padilla RT Scheduling Appointments (Called for [...] on file Legal 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 Gender Identity Female 05/14/2024 12:29 PM CDT Sexual Orientation Straight 03/14/2020 8: 28 AM CDT documented as of this encounter Plan of Treatment Not on file documented as of this encounter Visit Diagnoses Not on filedocumented in this encounter Care Teams Insurance Premium Auditor Relationship Specialty Start Date End Date Radames Ekaterina DO Fabián [address] [place] [address] PCP - General Family Medicine 12/18/19 04/09/24 Jeny Ho PA [address] [place] [address] PCP - General Physician Drag Seiner 04/10/24 La Nena Figueroa NP Nurse Practitioner Gastroenterology 12/18/19 Darren Bower MD [address] [place] [address] Referring Physician Hematology and Oncology 12/18/19 documented as of this encounter
--- NOTE | 2025-02-18 08:29 | WPDANESEPPF ---
Anes - Initial Pre Proc Eval Procedure: Operation Date: 02/18/25 10:00 Proposed Procedures p L3-L4, L4-L5 Decompression and Posterolateral Fusion and Stereotactic Computer Assisted for 7D Navigation - Sydney Farmer MD Date/Time: 02/18/25 08:29 Surgeon: Sydney Farmer MD Pre Op Diagnosis: lumbar spondolithesis, stenosis e/neuro freddie Patient Data Age: 70 Gender: F Height: 1.6 m Weight: 91.2 kg Last Vital Signs Temp 36.6 C 02/02/25 14:56 Pulse 66 02/02/25 14:56 Resp 18 02/02/25 14:56 BP 128/57 L 02/02/25 14:56 Pulse Ox 96 02/02/25 14:56 O2 Del Method Room Air 02/02/25 14:56 Allergies Allergy/AdvReac Type Severity Reaction Status Date / Time celecoxib (From Celebrex) Allergy Mild Hives Verified 02/02/25 14:07 gabapentin AdvReac Severe Dizziness Verified 02/02/25 14:07 aspirin AdvReac Gastrointestinal Verified 02/02/25 14:35 Upset/BLEEDING NSAIDS (Non-Steroidal AdvReac Gastrointestinal Verified 02/02/25 14:35 Anti-Inflamma Upset/BLEED Home Medications ?Medication ?Instructions ?Recorded ?Confirmed ?Type allopurinol 100 mg tablet 100 mg PO DAILY 02/08/23 02/02/25 History atorvastatin 10 mg tablet 10 mg PO DAILY 02/08/23 02/02/25 History fluoxetine 20 mg capsule 60 mg PO DAILY 02/08/23 02/02/25 History lisinopril 10 mg tablet 10 mg PO DAILY 02/08/23 02/02/25 History metoprolol succinate 25 mg 25 mg PO DAILY 02/08/23 02/02/25 History tablet,extended release 24 hr omeprazole 20 mg capsule,delayed 20 mg PO EVERY OTHER DAY 02/08/23 02/02/25 History release cetirizine 10 mg capsule (Zyrtec) 10 mg PO DAILY PRN Congestion 06/22/23 02/02/25 History cholecalciferol (vitamin D3) 25 25 mcg PO WEEKLY 05/28/24 02/02/25 History mcg (1,000 unit) tablet cyanocobalamin (vitamin B-12) 100 100 mcg MONTHLY 05/28/24 05/28/24 History mcg/mL injection solution ferrous sulfate 324 mg (65 mg 324 mg PO DAILY 05/28/24 02/02/25 History iron) tablet,delayed release acetaminophen 325 mg tablet 650 mg PO PRN PRN pain 02/02/25 02/02/25 History (Tylenol) cholecalciferol (vitamin D3) 1,250 1,250 mcg PO WEEKLY 02/02/25 02/02/25 History mcg (50,000 unit) tablet tramadol 50 mg tablet 50 mg PO PRN PRN pain 02/02/25 02/02/25 History Patient hx anesthesia problems: none Family hx anesthesia problems: none Results Review: All pre-operative results and documents have been reviewed as part of the pre-operative evaluation. [facility] Past Medical History Medical History Cervical stenosis of spinal canal COPD (chronic obstructive pulmonary disease) History of smoking Osteoporosis Gout Lumbago Depression GERD (gastroesophageal reflux disease) Spondylolisthesis, cervical region Cervical myelopathy Lumbar stenosis Hypertension Crohn's colitis Arthritis Anemia Surgical History Surgical History (Updated 02/18/25 @ 08:29 by Junior Barajas MD) H/O cervical spine surgery Family History Family History Mother Cancer ovarian cancer Grandparent Diabetes mellitus Father Hypertension Heart disease Cerebrovascular accident Sibling Heart disease Social History Social History (Updated 02/18/25 @ 08:32 by Junior Barajas MD) Social History: Ernestina is very confident filling out medical forms. In the last 12 months she has received assistance from an organization or program with paying utility bills and care for elder or disabled. She does have an advance directive or living will. She is . The date of her last physical exam was October 2022. She is not sexually active and her control method was tubal ligation. The date of her last PAP test was 12/20/22 with normal results. Her last mammogram at [facility] was normal. She does not experience menopausal symptoms. She reports having a blood transfusion 02/07/2014. She denies currently using recreational or street drugs. Denies ever giving self street drugs with a needle. Denies eating a healthy diet and exercising regularly. Denies having frequent falls. Her current caffeine intake consists of 4 cups of cola/soda per day. Smoking packs per day: 1 Smoking cigarettes per day: 20.0 Years smoked: 52 Smoking pack-years: 52.00 Smoking status: Former smoker Second hand tobacco smoke exposure: Yes Alcohol intake: never Substance use: never Substance use type: does not use Do You Feel Safe in your Home?: Yes Lack of Transportation: No Lack of Food: Never True Current Housing: I Have Housing Concerned About Future Housing: No Difficulty Paying Gas/Electric Bills: No Difficulty Paying for Meds: No Currently Unemployed: No Education: High School Diploma/GED Difficulty w/ Childcare or Family Care: No Living arrangements: with family Additional living arrangements comments: LIVES WITH DAUGHTER - [place] Occupation/Education: retired 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 Informed Consent: The patient's anesthetic plan and its attendant risks and benefits were discussed with the patient/family/POA. Questions were solicited and answers provided to the satisfaction of the patient/family/POA.
[2025-02-18] MEDS: LACTATED RINGERS 1,000 ML 30 ML IV CONT ×2 (09:15→15:00)
--- NOTE | 2025-02-18 09:46 | P.HP_ITS ---
H&P: HPI History of Present Illness Date/Time: 02/18/25 09:46 Chief Complaint: back and right leg pain Narrative: From 09/25: Ms. Sullivan is a 69-year-old female with history of cervical myelopathy who underwent PCDF C3-7 in May who is here today for scheduled follow-up. She is clinically doing very well with significant improvement in her preoperative symptoms. She has no pain in her neck or arms. The paresthesias in her hands have resolved. Her incision healed without concern. She is very happy with respect to her recovery from her cervical surgery. Her main complaint at this time is pain across the lower back that radiates down the back of the right leg to the ankle. This is fairly constant but worsens with being in any 1 position for a length of time. She feels that she has to lean forward when walking as it is too painful to stand up straight. She has not had physical therapy for her lower back within the last year. She has had injections through Pain Management in the past but not at several years. She is not interested in pursuing more injections as these were never helpful for her in the past. She has fortunately continued to be tobacco free. She had had a DEXA scan withi n the last year or so that showed improvement of her osteoporosis to osteopenia. From 12/03: Since her last visit, she completed physical therapy which was not helpful for her. She continues to have significant pain across the lower back into the right leg. She has had a colonoscopy in which some bleeding vessels were coagulated. She is set to have another iron infusion this week. She has a follow-up hemoglobin with her primary care scheduled. She states that her last hemoglobin was above 10. Review of Systems Review of Systems: All systems reviewed & are unremarkable except as noted in HPI and below PMFSH Past Medical History Medical History Cervical stenosis of spinal canal COPD (chronic obstructive pulmonary disease) History of smoking Osteoporosis Gout Lumbago Depression GERD (gastroesophageal reflux disease) Spondylolisthesis, cervical region Cervical myelopathy Lumbar stenosis Hypertension Crohn's colitis Arthritis Anemia Surgical History Surgical History (Updated 02/18/25 @ 08:29 by Junior Barajas MD) H/O cervical spine surgery Family History Family History Mother Cancer ovarian cancer Grandparent Diabetes mellitus Father Hypertension Heart disease Cerebrovascular accident Sibling Heart disease Social History Social History (Updated 02/18/25 @ 08:32 by Junior Barajas MD) Social History: Ernestina is very confident filling out medical forms. In the l ast 12 months she has received assistance from an organization or program with paying utility bills and care for elder or disabled. She does have an advance directive or living will. She is . The date of her last physical exam was October 2022. She is not sexually active and her control method was tubal ligation. The date of her last PAP test was 12/20/22 with normal results. Her last mammogram at [facility] was normal. She does not experience menopausal symptoms. She reports having a blood transfusion 02/07/2014. She denies currently using recreational or street drugs. Denies ever giving self street drugs with a needle. Denies eating a healthy diet and exercising regularly. Denies having frequent falls. Her current caffeine intake consists of 4 cups of cola/soda per day. Smoking packs per day: 1 Smoking cigarettes per day: 20.0 Years smoked: 52 Smoking pack-years: 52.00 Smoking status: Former smoker Second hand tobacco smoke exposure: Yes Alcohol intake: never Substance use: never Substance use type: does not use Do You Feel Safe in your Home?: Yes Lack of Transportation: No Lack of Food: Never True Current Housing: I Have Housing Concerned About Future Housing: No Difficulty Paying Gas/Electric Bills: No Difficulty Paying for Meds: No Currently Unemployed: No Education: High School Diploma/GED Difficulty w/ Childcare or Family Care: No Living arrangements: with family Additional living arrangements comments: LIVES WITH ZIA NEWMAN Occupation/Education: retired 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) Gender identity (if verbalized by the patient): Female Spiritual care concerns: No Meds Home Medications and Allergies Home Medications ?Medication ?Instructions ?Recorded ?Confirmed ?Type allopurinol 100 mg tablet 100 mg PO DAILY 02/08/23 02/18/25 History atorvastatin 10 mg tablet 10 mg PO DAILY 02/08/23 02/18/25 History fluoxetine 20 mg capsule 60 mg PO DAILY 02/08/23 02/18/25 History lisinopril 10 mg tablet 10 mg PO DAILY 02/08/23 02/18/25 History metoprolol succinate 25 mg 25 mg PO DAILY 02/08/23 02/18/25 History tablet,extended release 24 hr omeprazole 20 mg capsule,delayed 20 mg PO EVERY OTHER DAY 02/08/23 02/18/25 History release cetirizine 10 mg capsule (Zyrtec) 10 mg PO DAILY PRN Congestion 06/22/23 02/18/25 History cholecalciferol (vitamin D3) 25 25 mcg PO WEEKLY 05/28/24 02/02/25 History mcg (1,000 unit) tablet cyanocobalamin (vitamin B-12) 100 100 mcg MONTHLY 05/28/24 05/28/24 History mcg/mL injection solution ferrous sulfate 324 mg (65 mg 324 mg PO DAILY 05/28/24 02/18/25 History iron) tablet,delayed release acetaminophen 325 mg tablet 650 mg PO PRN PRN pain 02/02/25 02/02/25 History (Tylenol) cholecalciferol (vitamin D3) 1,250 1,250 mcg PO WEEKLY 02/02/25 02/18/25 History mcg (50,000 unit) tablet tramadol 50 mg tablet 50 mg PO PRN PRN pain 02/02/25 02/18/25 History Allergies Allergy/AdvReac Type Severity Reaction Status Date / Time celecoxib (From Celebrex) Allergy Mild Hives Verified 02/18/25 09:41 gabapentin AdvReac Severe Dizziness Verified 02/18/25 09:41 aspirin AdvReac Gastrointestinal Verified 02/18/25 09:41 Upset/BLEEDING NSAIDS (Non-Steroidal AdvReac Gastrointestinal Verified 02/18/25 09:41 Anti-Inflamma Upset/BLEED Exam Narrative: Cervical incision is well healed Positive straight leg raise on right Unless otherwise stated above, the patient's physical exam is as follows: General: -Well developed and well nourished. No a cute distress. Cooperative with exam. Mental status: -Awake and oriented to person, place, an d time. Affect is normal. -Fund of knowledge appropriate -Recent and remote memory are intact -Attention span and concentration appear normal -Language function is normal -There is no evidence of aphasia in conv ersational speech. Cranial nerves: -CN II: Visual kwok full to bedside co nfrontation -CN III, IV, : Pupils equal, round, an d reactive to light; extraocular movements, no ptosis, no nystagmus -CN V: Facial sensation intact in V1 thr ough V3 distributions -CN VII: Face symmetric -CN VIII: Hearing intact to conversation al speech -CN IX, X: Palate elevates symmetrically ; normal phonation -CN XI: Symmetric full strength of diop ocleidomastoid and trapezius muscles -CN XII: Tongue protrudes midline Integumentary: -No obvious skin lesions or masses Motor: -Muscle tone normal without spasticity o f flaccidity. No atrophy. No fasciculations. -No pronator drift -Right upper extremity: deltoid 5/5, bic eps 5/5, triceps 5/5, wrist extensors 5/5, wrist flexors 5/5, intrinsics 5/5 -Left upper extremity: deltoid 5/5, ricarda ps 5/5, triceps 5/5, wrist extensors 5/5, wrist flexors 5/5, intrinsics 5/5 -Right lower extremity: iliopsoas 5/5, q uadriceps 5/5, hamstrings 5/5, tibialis anterior 5/5, gastroc-soleus 5/5, EHL 5/5 -Left lower extremity: iliopsoas 5/5, qu adriceps 5/5, hamstrings 5/5, tibialis anterior 5/5, gastroc-soleus 5/5, EHL 5/5 Sensory: -Intact to light touch throughout -Normal proprioception throughout Reflexes: -1-2+ DTR's throughout -No Galvez's, clonus, or Babinski bilat erally Musculoskeletal: -Lumbar spine: no tenderness to palpatio n, no pain, and normal lumbosacral spine movements -Afjkqvku-saa-lpske test negative -Hip: normal range of motion, no crepitu s bilaterally. No pain reproduced on CHRISTY or FAIR testing bilaterally -Knee: no instability, subluxation or la xity, and no crepitus bilaterally I personally reviewed the MRI lumbar spine which shows evidence of moderate to severe central stenosis at L3-4 from a combination of ligament to him and facet hypertrophy. There is also significant fluid within the facets at this level. At L4-5, there is a grade 1 spondylolisthesis with severe central stenosis, ligamentum flavum hypertrophy and facet hypertrophy, as well as significant fluid within the left facet. There is right greater than left neuroforaminal stenosis. Assessment and Plan Assessment and plan (1) Lumbar stenosis with neurogenic claudication: Code(s): M48.062 - Spinal stenosis, lumbar region with neurogenic claudication Status: Acute (2) Spondylolisthesis, lumbar region: Code(s): M43.16 - Spondylolisthesis, lumbar region Status: Acute Plan Ms. Sullivan is a 70-year-old female with history of cervical myelopathy who underwent posterior cervical decompression and fusion C3-7 in May 2024 who was doing very well with significant improvement in her preoperative symptoms. She has no complaints at this time with respect to her neck. Her bigger concern is her chronic low back pain with radiation down the back of the right leg to the ankle. This is been resistant to physical therapy. She returns today with an updated MRI lumbar spine showing moderate to severe central stenosis L3-4 and L4-5, spondylolisthesis L4-5, and significant facet hypertrophy and fluid. I ultimately offered her surgery in the form of an L3-4, L4-5 decompression and posterolateral fusion. We discussed surgery in detail including risks, expected recovery, and restrictions after surgery. She is very eager to proceed with surgery as discussed.
--- NOTE | 2025-02-18 09:46 | WPDHPUPDATE1 ---
History and Physical Update Update Date/Time: 02/18/25 09:46 History and Physical has been reviewed, including an updated exam of the patient. There are NO changes in the patient's condition. Risks, benefits, and alternatives have been discussed and questions answered. Patient agrees to proceed with procedure.
[2025-02-18] MEDS: ceFAZolin 2 GM/D5W 50 ML 2 GM/50 ML BAG IVPB ×2 (10:19→17:45)
[2025-02-18] MEDS: BUPIVACAINE/EPINEPHRINE 0.5% 50 ML VIAL 30 ML INFILTRATE (11:06)
--- NOTE | 2025-02-18 15:10 | P.OPB_ITS ---
Procedure Note - Brief Procedure Note - Brief Date of procedure: 02/18/25 lumbar spondolithesis, stenosis e/neuro freddie Post-op diagnosis: Same Procedure performed: L3-4, L4-5 posterolateral fusion and decompression Surgeon: Sydney Farmer MD Mc Kay Machine Operator: Ranjana Anesthesia: GETA Findings: Successful L3-5 fusion/decompression without complication Estimated blood loss (mL): 300 Drains: Yes Packing: No Pathology: None sent Complications: None Condition: Stable Disposition: PACU
--- NOTE | 2025-02-18 15:11 | W.PM.PROC2 ---
Procedure Note - Detailed Date of Procedure 02/18/25 Pre-op Diagnosis lumbar spondylolisthesis, stenosis e/neuro freddie Post-op Diagnosis Same Procedure Performed 1. L3, L4 laminectomies 2. L3, L4, L5 pedicle screw instrumentation 3. L3-4, L4-5 posterolateral arthrodesis with autograft 4. Use of 7D Flash navigation 5. Use of C-arm for fluoroscopy Surgeon Sydney Farmer MD Labor Relations Analyst Ranjana Anesthesia General Description of Procedure The patient was brought to the operating room, and general anesthesia was induced. The patient was placed prone on the open Chivo table, and all pressure points were padded. Compression devices were placed on the patient's calves. The C-arm was brought onto the field to localize the appropriate level and assist with incisional planning. The previous incision was marked and extended cephalad. The area was prepped and draped in usual sterile fashion. A time out was conducted, and pre-operative antibiotics were administered. Local anesthesia was injected into the planned incision. The planned incision was made with a 10-blade scalpel, and dissection was carried down with the monopolar cautery to open the fascia. The spinous processes were exposed, and a subperiosteal dissection was performed with the Bovie out transverse processes bilaterally, taking care not to disrupt the facets. The navigational clamp was placed on the spinous process of L3, and the patient's preoperative CT scan was registered based on intraoperative anatomy. The navigation was tested for accuracy. The C-arm was brought in to confirm accuracy of the levels. Starting on the right side, a highway patrol pilot hole was created with assistance from navigation at L3 the junction of the transverse process with the superior articular process. The navigated gear shift was used to create the trajectory through the pedicle, and this was tapped. The trajectory was palpated the ball-tipped probe to ensure no breaches in the bone. A 6.5 x 45 mm screw was placed at this level. This process was repeated on the left side at L3, also with a 6.5 x 45 mm screw being placed. We then moved the navigational clamp to L4 and re-registered based on that anatomy. We verified the accuracy of the navigation. We repeated the same process on the left at L4 and L5 to place the pedicle screws. At both levels, 7.5 x 40mm screws were placed. This was repeated on the right side at L4 and L5, with 7.5 x 40mm screws being placed at both levels. The navigational clamp was removed, and then we proceeded with the decompression portion of procedure. The high-speed drill was used to create a trough through the lamina and pars bilaterally at L3 and L4. The spinous process and lamina were removed with the Leksell until the ligamentum flavum was exposed. A curved curette was used to separate the ligamentum from the overall which was then removed with a Kerrison. The pars and the superior articular process of L3 and L4 were removed in part bilaterally. All bone was saved and morselized for autograft. The dura was widely decompressed at L4 in particular. At L3-4, the ligamentum was adherent to the dura. The bone over this was decompressed to ensure the remaining soft tissue on the dura was not compressive. To avoid creating a durotomy, the adherent soft tissue was left in place. The transverse processes were decorticated. The screw heads were turned. 60mm rods were placed bilaterally and secured with set screws which were final tightened. The C-arm was brought back in to obtain confirmatory x-rays which show adequate hardware placement. Hemostasis was ensured with the bipolar, Floseal, and cottonoid patties, and the area was copiously irrigated. No evidence of CSF leak was noted. The morselized autograft was placed laterally along the decorticated bony edges. A medium Hemovac drain was placed into the surgical cavity and tunneled inferiorly into the left. The muscle was loosely approximated with 0-Vicryl. The fascia was closed with 0-Vicryl in an interrupted fashion. The soft tissue was again copiously irrigated. The dermis was closed with 2-0 and 3-0 interrupted Vicryl. The skin was closed with 3-0 nylon. The drain was secured with a nylon as well. Sterile dressings were applied. The patient was returned supine on the stretcher, extubated, and transferred to PACU without incident. Billing code: [id number], [id number], [id number], [id number], [id number], [id number] Implants 1. Two 6.5 x 45mm Orthofix NXG screws 2. Four 7.5 x 40mm screws 3. Two 60mm rods 4. Six set screws Estimated Blood Loss 300 Drains Yes Packing No Pathology None sent Complications None Condition Stable Disposition PACU [facility] Billing Surgery - Charge Forward: Surgery Billing
--- NOTE | 2025-02-18 15:23 | SUR.PHASEI ---
DR. PUGH AWARE OF SMALL SKIN TEAR TO LEFT WRIST UNDER TEGADERM AND SMALL SKIN TEAR IN VAGINAL AREA FROM [employer].. NO INTERVENTIONS ORDERED.
[2025-02-18] MEDS: fentaNYL CITRATE INJ (*CRX) 100 MCG/2 ML VIAL 25 MCG IV PUSH ×3 (15:34→16:43)
--- NOTE | 2025-02-18 16:41 | SUR.PHASEI ---
REPORTED TO FLOOR RN RE: SKIN TEAR TO LEFT WRIST AND VAGINAL AREA.
[2025-02-18] MEDS: ACETAMINOPHEN 500 MG TABLET 1000 MG PO (17:45)
[2025-02-18] MEDS: SODIUM CHLORIDE 0.9% IV 1,000 ML 100 ML IV CONT (17:45)
[2025-02-18] MEDS: oxyCODONE HCL (*CRX) 5 MG TAB IR PO (17:46)
--- NOTE | 2025-02-18 18:54 | ADMGEN ---
This patient, Ernestina Sullivan, was admitted to 3 [facility] Surg Room 322-01. Patient/family oriented to hospital policies and general routines including ID bracelet, bed and alarms, visiting hours, pain management, procedures, bathroom and other care routines, personal items, smoking policy, room service/diet, and visiting hours. Information on how to activate the Rapid Response Team has been discussed. Patient/Family are encouraged to report perceived risks to care and to ask questions if they do not understand what they are told or what they should do. received report from
[2025-02-18] MEDS: DOCUSATE SODIUM 100 MG CAPSULE PO (20:25)
--- NOTE | ~2025-02-19 | XR_ITS ---
EXAMINATION: XR fluoroscopy no charge DATE: 02/18/2025 14:42 INDICATION: Lumbar decompression and fusion TECHNIQUE: 2 fluoroscopic images of the lumbar spine were obtained during procedure performed by Dr. Farmer. Radiologist was not present for the imaging or procedure. The amount of fluoroscopy time use d during this procedure was 0.3 minutes. Total DAP was 2.7 Gym^2. COMPARISON: None. FINDINGS/IMPRESSION: L3 and L4 laminectomies and instrumented L3-L5 posterior spinal fusion with bilateral vertical brady an d pedicle screw fixation. See procedure note for further detail. Reviewed, dictated and finalized at location A.
[2025-02-19] MEDS: ACETAMINOPHEN 500 MG TABLET 1000 MG PO ×4 (00:04→17:07)
[2025-02-19] MEDS: ceFAZolin 2 GM/D5W 50 ML 2 GM/50 ML BAG IVPB ×3 (02:31→17:09)
[2025-02-19 03:45] VITALS: BP 112/55; PULSE 65; RESP 16; TEMP 36.7; O2SAT 95
[2025-02-19] MEDS: SODIUM CHLORIDE 0.9% IV 1,000 ML 100 ML IV CONT (06:27)
[2025-02-19 07:45] VITALS: BP 105/50; PULSE 67; RESP 15; TEMP 36.3; O2SAT 97
[2025-02-19 09:45] VITALS: PULSE 65
[2025-02-19] MEDS: METOPROLOL SUCCINATE EXT REL 25 MG TABCR PO (09:45)
[2025-02-19] MEDS: ATORVASTATIN 10 MG TABLET PO (09:47)
[2025-02-19] MEDS: FERROUS SULFATE 325 MG TABLET DR BY MOUTH (09:48)
[2025-02-19] MEDS: DOCUSATE SODIUM 100 MG CAPSULE PO ×2 (09:48→21:00)
[2025-02-19] MEDS: PANTOPRAZOLE 40 MG TABLET PO (09:56)
--- NOTE | 2025-02-19 13:43 | P.PNNEUSUR_ITS ---
Progress Note: A&P Assessment and Plan (1) Status post lumbar spinal arthrodesis: Code(s): Z98.1 - Arthrodesis status Status: Acute Plan -Will plan to keep in hospital tonight and discharge home tomorrow morning -Pull hemovac drain tomorrow morning -Dressing can be removed tomorrow and incision can stay open to air -Wound care and activity precautions reviewed at bedside -Follow up scheduled with me in 2 weeks Subjective Date/time seen: 02/19/25 13:43 Interval history: She is doing extremely well. She states that she has no pain. She has been up to walk and has been sitting in a chair today. She had no leg pain with ambulation. She is tolerating oral intake and has voided since the barajas was removed. She would like to stay another night in the hospital. Review of Systems Review of Systems: All systems reviewed & are unremarkable except as noted in HPI and below Exam Narrative: AOx4 Dressing c/d/i HV 120cc out full strength in lower extremities Sensation intact to light touch Objective Data Vital Signs Vital Signs: Vital Signs - 24 hr 02/18/25 15:00 02/18/25 15:15 02/18/25 15:30 Temperature 97.5 F L Pulse Rate 77 73 72 Respiratory Rate 17 14 11 L Blood Pressure 155/55 H 135/54 L 142/61 H Pulse Oximetry 100 100 100 Oxygen Delivery Simple Face Mask Simple Face Mask Simple Face Mask Oxygen Flow Rate 8 8 8 02/18/25 15:45 02/18/25 16:00 02/18/25 16:15 Temperature Pulse Rate 72 71 73 Respiratory Rate 12 12 16 Blood Pressure 119/68 133/53 L 121/59 L Pulse Oximetry 94 94 96 Oxygen Delivery Room Air Room Air Room Air Oxygen Flow Rate 02/18/25 16:30 02/18/25 17:05 02/18/25 17:15 Temperature 96.3 F L 96.5 F L Pulse Rate 73 67 67 Respiratory Rate 16 15 16 Blood Pressure 145/56 H 106/44 L 116/45 L Pulse Oximetry 96 94 95 Oxygen Delivery Room Air Oxygen Flow Rate 02/18/25 17:45 02/18/25 18:45 02/18/25 19:45 Temperature 97.4 F L 97.9 F 98.1 F Pulse Rate 67 70 67 Respiratory Rate 16 16 16 Blood Pressure 125/47 L 103/42 L 107/42 L Pulse Oximetry 95 93 92 Oxygen Delivery Oxygen Flow Rate 02/19/25 03:45 02/19/25 07:45 02/19/25 08:00 Temperature 98.1 F 97.3 F L Pulse Rate 65 67 Respiratory Rate 16 15 Blood Pressure 112/55 L 105/50 L Pulse Oximetry 95 97 Oxygen Delivery Room Air Oxygen Flow Rate 02/19/25 08:52 02/19/25 09:45 Temperature Pulse Rate 65 Respiratory Rate Blood Pressure Pulse Oximetry Oxygen Delivery Room Air Oxygen Flow Rate Intake/Output Intake/Output: Intake & Output 02/16/25 02/17/25 02/18/25 02/19/25 23:59 23:59 23:59 23:59 Intake Total 1300 1730 Output Total 140 90 Balance 1160 1640 Meds/Results Medications: Active Medications Generic Name Dose Route Start Last Admin Trade Name Freq PRN Reason Stop Dose Admin Acetaminophen 1,000 mg 02/18/25 16:45 02/19/25 11:44 Acetaminophen 500 Mg Tablet PO 1,000 mg Q6HR EDWIN Administration Al Hydrox/Mg Hydrox/Simethicone 20 ml 02/18/25 16:45 Mag Hydrox/Al Hydrox/Simeth 30 Ml Udc PO Q4H PRN Indigestion/Heartburn Allopurinol 100 mg 02/19/25 09:00 02/19/25 09:47 Allopurinol 100 Mg Tablet PO 100 mg DAILY EDWIN Administration Atorvastatin Calcium 10 mg 02/19/25 09:00 02/19/25 09:47 Atorvastatin 10 Mg Tablet PO 10 mg DAILY EDWIN Administration Bisacodyl 10 mg 02/18/25 16:45 Bisacodyl 10 Mg Suppository RECTAL DAILY PRN Constipation Docusate Sodium 100 mg 02/18/25 21:00 02/19/25 09:48 Docusate Sodium 100 Mg Capsule PO 100 mg Q12HR [facility] Administration Ergocalciferol 1,250 mcg 02/22/25 09:00 Ergocalciferol (Vitamin D2) 1,250 Mcg (50,000 Units) Capsule PO WEEKLY [facility] Ferrous Sulfate 325 mg 02/19/25 09:00 02/19/25 09:48 Ferrous Sulfate [address] BY MOUTH 325 mg DAILY [facility] Administration Fluoxetine HCl 60 mg 02/19/25 09:00 02/19/25 09:45 Fluoxetine Hcl 20 Mg Capsule PO 60 mg DAILY EDWIN Administration Cefazolin Sodium 2 gm in 50 mls @ 100 mls/hr 02/18/25 18:00 02/19/25 09:44 Ancef 2 Gm/D5w 50 Ml IVPB 100 mls/hr Q8H EDWIN Administration Sodium Chloride 1,000 mls @ 100 mls/hr 02/18/25 16:45 02/19/25 06:27 Normal Saline Iv IV CONT 100 mls/hr .Q10H EDWIN Administration Lisinopril 10 mg 02/19/25 09:00 02/19/25 09:47 Lisinopril 10 Mg Tablet PO 10 mg DAILY EDWIN Administration Loratadine 10 mg 02/18/25 17:09 Loratadine 10 Mg Tablet PO QAM PRN Congestion Metoprolol Succinate 25 mg 02/19/25 09:00 02/19/25 09:45 Metoprolol Succinate Ext Rel 25 Mg Tabcr PO 25 mg DAILY EDWIN Administration Morphine Sulfate 2 mg 02/18/25 16:45 Morphine Sulfate (*Crx) 2 Mg/Ml Inj IV PUSH Q2H PRN Breakthrough Pain Ondansetron HCl 4 mg 02/18/25 16:45 Ondansetron Inj 4 Mg/2 Ml Vial IV PUSH Q8H PRN Nausea And Vomiting Oxycodone HCl 5 mg 02/18/25 16:45 02/18/25 17:46 Oxycodone Hcl (*Crx) 5 Mg Tab Ir PO 5 mg Q4H PRN Administration Pain Rated 4-6 Oxycodone HCl 10 mg 02/18/25 16:45 Oxycodone Hcl (*Crx) 5 Mg Tab Ir PO Q4H PRN Pain Rated 7-10 Pantoprazole Sodium 40 mg 02/19/25 09:00 02/19/25 09:56 Pantoprazole 40 Mg Tablet PO 40 mg Q48HR EDWIN Administration Senna/Docusate Sodium 1 tab 02/18/25 16:45 Senna/Docusate Sodium Tablet PO HS PRN Constipation Tizanidine HCl 4 mg 02/18/25 16:45 Tizanidine Hcl 2 Mg Tablet PO Q8H PRN muscle spasms
--- NOTE | 2025-02-19 14:23 | WPDANESPN ---
Anes - Prog Note Post-Op Date/Time: 02/19/25 14:23 Cardiovascular status: normal Respiratory status: normal Airway patency: baseline Mental status: baseline Vital Signs: Last Vital Signs Temp 36.3 C L 02/19/25 07:45 Pulse 65 02/19/25 09:45 Resp 15 02/19/25 07:45 BP 105/50 L 02/19/25 07:45 Pulse Ox 97 02/19/25 07:45 O2 Del Method Room Air 02/19/25 08:52 O2 Flow Rate 8 02/18/25 15:30 Pain Score (VAS): 2 I/O: Intake & Output 02/18/25 02/19/25 02/19/25 23:59 07:59 15:59 Intake Total 300 1050 730 Output Total 140 90 Balance 160 960 730 Patient Feedback: Patient satisfied with anesthetic care.
[2025-02-19 19:45] VITALS: BP 122/65; PULSE 66; RESP 16; TEMP 35.9; O2SAT 99
[2025-02-19 20:00] VITALS: PULSE 66; RESP 16; O2SAT 99
[2025-02-20] MEDS: ACETAMINOPHEN 500 MG TABLET 1000 MG PO ×2 (01:07→06:18)
[2025-02-20] MEDS: ceFAZolin 2 GM/D5W 50 ML 2 GM/50 ML BAG IVPB (01:07)
[2025-02-20 05:59] VITALS: BP 133/53; PULSE 66; RESP 16; TEMP 35.8; O2SAT 99
[2025-02-20] MEDS: FERROUS SULFATE 325 MG TABLET DR BY MOUTH (08:21)
[2025-02-20] MEDS: ATORVASTATIN 10 MG TABLET PO (08:21)
[2025-02-20] MEDS: METOPROLOL SUCCINATE EXT REL 25 MG TABCR PO (08:21)
[2025-02-20] MEDS: DOCUSATE SODIUM 100 MG CAPSULE PO (08:21)
[2025-02-20] MEDS: oxyCODONE HCL (*CRX) 5 MG TAB IR PO (09:19)
--- NOTE | 2025-02-22 14:27 | PM.DS ---
DS: Admitting Diagnosis Discharge Date 02/20/25 Admitting Diagnosis Lumbar stenosis with radiculopathy DS: Discharge Diagnosis Discharge Diagnosis (1) Status post lumbar spinal arthrodesis: Code(s): Z98.1 - Arthrodesis status Status: Acute DS: Summary Hospital Course Hospital Course: She presented on February 18 for surgery; please see the operative note for more details. she was transferred to the floor after surgery. She worked with therapy on POD1 who cleared her for discharge home. Her pain was well controlled. She was able to void independently when the barajas catheter was removed. Her hemovac drain was removed on POD2. She was determined ready for discharge home on post-operative day 2. Time Spent with Patient Time attestation: Total time spent providing and/or coordinating discharge services: Exam Narrative: AOx4 Dressing c/d/i full strength in lower extremities Sensation intact to light touch Discharge Plan Discharge Discharging Clinician: Sydney Farmer Patient Disposition: Home Activity: other - see discharge instructions Diet: as tolerated Discharge Instructions: INSTRUCTIONS AFTER YOUR LUMBAR FUSION ? Your incision is closed with sutures. These will be removed at your first post-operative appointment. You should have a follow-up appointment scheduled already, but please call the office number below if you need to verify that appointment. ? You may shower and get your incision wet with soap and water starting on post-operative day 2 (Sunday). Do not submerge the incision under water (like in a bathtub or swimming pool) for 6 weeks after surgery. Never apply ointments or lotions to the incision. ? The incision should be checked daily. Notify the office if there is drainage, redness, or if you have fever with a temperature of over 101 degrees. ? You are encouraged to walk as much as comfortable, with assistance as needed. For example, it may be beneficial to walk short distances hourly during the waking hours and gradually increase walking during your recovery period. Fatigue can be common. ? Avoid any bending, heavy lifting, or twisting movements. ? You have an puwvv-sp-utb-pound lift restriction until further advised by your physician (a gallon of milk weighs eight pounds). ? Make frequent position changes, avoiding long periods of sitting. Try not to sit more than 60 minutes at a time. ? You may engage in sexual activity in two weeks as tolerated. ? No housework, especially vacuuming, making beds, or doing laundry until seen in the office. ? You may walk stairs carefully. ? Minimize long car rides for the first two weeks. You may resume driving when you feel comfortable; however, you may not drive if still taking narcotic pain medications. ? You should start with Tylenol 1000mg every 6 hours for pain first. If the Tylenol is not effective, you may then take oxycodone. ? The physician may order pain medication and/or muscle relaxers. As time goes by, you should require less of these. Always take your medication as ordered, and only if needed. If you take more than prescribed, it will not be refilled early. If you feel you require narcotic medication refill, kindly give the office a 72-hour notice. No refills are given over the weekend. ? Avoid use of anti-inflammatory medications (like Ibuprofen, Aleve, Advil, Motrin) for up to three months following fusion surgery. Use of these medications may slow healing. ? Resume your usual diet. Constipation is a common problem postop. You may use any over the counter laxative, or stool softener. Always follow the bottle directions. ? Use of nicotine products should be stopped completely. Smoking can slow the healing process significantly. It can also increase the chance for developing postop pneumonias and other complications. Please avoid use of all nicotine products for at least three months after spine surgery. FOLLOW-UP ? Schedule an appointment with your primary care physician in the near future to ensure he/she is aware of your recent hospitalization and surgery and to ensure your other medical issues are being properly managed. This is particularly important to ensure your blood sugars are being well-controlled while you are healing from surgery. For urgent calls after hours, please call our exchange through our office at : ? Call the office for: o Appointment set up. o Fever greater than 101 degrees. o Increased pain, swelling, redness or drainage from your incision. o Trouble swallowing or breathing. o Pain, swelling or weakness of your legs. o Any other question or concerns you may have. Sydney Farmer MD [facility] [address], [place] [address] Patient Language: Swedish Stand Alone Forms: General Discharge Instructions Follow-up/Referrals: Sydney Farmer MD [Physician] - Discharge Medications: New tizanidine 2 mg Tablet 4 mg PO Q8H PRN (Reason: muscle spasms) 10 Days Qty: 30 0RF sennosides-docusate sodium [Senokot-S] 8.6-50 mg Tablet 1 tab PO BID 7 Days Qty: 14 0RF oxycodone 5 mg Tablet 5 mg PO Q6H PRN (Reason: Pain Rated 4-6) 7 Days Qty: 28 0RF Continued allopurinol 100 mg tablet 100 mg PO DAILY atorvastatin 10 mg tablet 10 mg PO DAILY fluoxetine 20 mg capsule 60 mg PO DAILY Rx Instructions: administer in the morning lisinopril 10 mg tablet 10 mg PO DAILY metoprolol succinate 25 mg tablet extended release 24 hr 25 mg PO DAILY omeprazole 20 mg capsule,delayed release(DR/EC) 20 mg PO EVERY OTHER DAY Patient Comments: Patient taking every other day Zyrtec 10 mg Capsule 10 mg PO DAILY PRN (Reason: Congestion) cyanocobalamin (vitamin B-12) 100 mcg/mL Solution 100 mcg MONTHLY cholecalciferol (vitamin D3) 25 mcg (1,000 unit) tablet 25 mcg PO WEEKLY Rx Instructions: Sunday ferrous sulfate 324 mg (65 mg iron) tablet,delayed release (DR/EC) 324 mg PO DAILY Rx Instructions: Takes sun, sun and sun. cholecalciferol (vitamin D3) 1,250 mcg (50,000 unit) tablet 1,250 mcg PO WEEKLY Patient Comments: TAKES ON SUNDAYS acetaminophen [Tylenol] 325 mg tablet 650 mg PO PRN PRN (Reason: pain) Held tramadol 50 mg tablet 50 mg PO PRN PRN (Reason: pain) Hold Instructions: Resume on 02/27/25. Do not take at the same time as oxycodone. You may resume this once the oxycodone has run out Date of admission: 02/19/25 15:48 Primary Care Provider: Vic,Jeny HYDE Admitting Provider: Sydney Farmer Attending physician on admission: Sydney Farmer Condition: Stable
--- OUTSIDE RECORDS SUMMARY | 2025-02-23 11:08 | XMS_ITS | Clinical Summary ---
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 Gender Identity Not on file Sexual Orientation Not on file Plan of Treatment Health Maintenance Due Date Last Done Comments Colorectal Cancer Screening Colonoscopy (10 Years) 1955 Hepatitis C 01/11/1972 DTaP, Tdap and Td Vaccines ( 1 - Tdap) 1973 Mammogram Screening 1994 Pneumococcal Vaccine: 50+ Ye ars (1 of 1 - PCV) 01/11/2004 Zoster Vaccines (1 of 2) 01/11/2004 Dexa Scan (General) 2019 COVID-19 Vaccine ( - 2023-2 5 season) 2024 RSV Immunization or 60+ Years (1 - 1-dose 75+ series) 2029 Meningococcal B Vaccine Aged Out No l onger eligible based on patient's age to complete this topic Meningococcal Vaccine Aged Out No ellie afshan eligible based on patient's age to complete this topic RSV Immunizations Under 20 Months Aged Out No longer eligible based on patient's age to complete this topic
--- OUTSIDE RECORDS SUMMARY | 2025-02-23 11:08 | XMS_ITS | Referral Summary ---
Author Organization [facility] Address [address] [place] [address] Care Team Providers Care Salvage Worker Name Role Phone Card, La Nena Oliver NP Unavailable [phone] Darren Bower MD Unavailable Jeny Ho Primary Care Provider Allergies Active Allergy Reactions Criticality Noted Date Comments Celecoxib Unknown 12/24/2008 Gabapentin Agitation Low 07/20/2022 Medications atorvastatin (LIPITOR) 10 mg tabletIndications:Pure hypercholesterolemia Take 1 tablet (10 mg total) by mouth daily 90 tablet 3 022 Active fluticasone propionate (FLONASE) 50 mcg/actuation nasal spray as needed 022 Active FLUoxetine (PROzac) 20 mg capsuleIndications: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,Generalized anxiety disorder TAKE 3 CAPSULES BY MOUTH EVERY DAY 270 capsule 3 022 Active metoprolol XL (TOPROL-XL) 25 mg extended release tabletIndications:Hype rtension, essential TAKE 1 TABLET BY MOUTH EVERY DAY 90 tablet 023 Active allopurinoL (ZYLOPRIM) 100 mg tabletIndications:Elev ated blood uric acid level TAKE 1 TABLET BY MOUTH EVERY DAY 90 tablet 023 Active alendronate (FOSAMAX) 70 mg tabletIndications:Age- related osteoporosis without current pathological fracture PLEASE SEE ATTACHED FOR DETAILED DIRECTIONS 12 tablet 3 023 Active cholecalciferol 25 mcg (1,000 unit) tablet Take 1 tablet (1,000 Units total) by mouth daily 024 Active cyanocobalamin (Vitamin B-12) 1,000 mcg/mL injection BRING TO OFFICE FOR WEEKLY B12 INJECTION 024 Active ferrous sulfate ER 324 mg (65 mg iron) EC tablet TAKE 1 TABLET BY MOUTH ON SUNDAY, SUNDAY, AND Sunday Active montelukast (SINGULAIR) 10 mg tablet Take 1 tablet (10 mg total) by mouth daily 024 Active traMADoL (ULTRAM) 50 mg tablet Take 1 tablet (50 mg total) by mouth every 12 (twelve) hours as needed for pain 024 Active lisinopriL (PRINIVIL,ZESTRIL) 10 mg tablet Take 1 tablet (10 mg total) by mouth daily 024 Active omeprazole (PriLOSEC) 20 mg capsule TAKE 1 CAPSULE (20 MG TOTAL) BY MOUTH EVERY OTHER DAY 45 capsule 025 Active omeprazole (PriLOSEC) 20 mg capsule TAKE 1 CAPSULE (20 MG TOTAL) BY MOUTH EVERY OTHER DAY 45 capsule 025 02/22 Discontinued Active Problems Problem Noted Date Diagnosed Date [...] 07/16/2022 Assessment & Plan (07/16/2022 7:04 PM TRUCK BENCH MECHANIC): X-ray of lumbar spine. Titrating dose of gabapentin. Referral to pain management Chronic neck pain 07/16/2022 Assessment & Plan (07/16/2022 7:04 PM TRUCK BENCH MECHANIC): X-ray the cervical spine. Will trial gabapentin to titrating dose of 302-3 times daily. Referral to pain management Gross hematuria 06/13/2022 Assessment & Plan (06/15/2022 8:13 PM CDT): Labs ordered, will follow. Dependent edema 04/13/2022 Personal history of colonic polyps 03/31/2022 Overview (03/31/2022): Added automatically from request for surgery [id number] Arthralgia of multiple sites 02/12/2022 Assessment & [...] Assessment & Plan (12/27/2020 2:53 PM CDT): Ozjpc-oz-eythri exercises encouraged. Handout given. Recommended physical therapy, [...] counseling. Assessment & Plan (07/16/2022 7:05 PM TRUCK BENCH MECHANIC): BMI Follow-up includes: exercise counseling. Assessment & [...] GI. Assessment & Plan (09/19/2019 1:19 PM TRUCK BENCH MECHANIC): Pt says abdominal pain, diarrhea, and nausea resolved a few days after last office visit and did not need to take budesonide. She is taking Lialda 2.4 g daily and doing well. Continue current regimen. Assessment & Plan (08/22/2019 1:31 PM TRUCK BENCH MECHANIC): Pt restarted on medication about 3 weeks [...] 06/16/2022 LABPLAT 439 (H) 06/16/2022 Stable at [facility] time - states that it was normal ED wwill need to get records from [place] Assessment & Plan (06/15/2022 8:16 PM CDT): [...] hematology. Assessment & Plan (08/22/2019 1:04 PM TRUCK BENCH MECHANIC): EGD and colonoscopy ruled out GI bleed as cause for anemia. Pt says she follows with Dr. Bower at [facility] for her anemia. No further workup [...] (03/31/2022): Added automatically from request for surgery [id number] Elevated blood uric acid level 01/13/2022 02/10/2022 [...] 12/18/2019 Assessment & Plan (09/19/2019 12:39 PM TRUCK BENCH MECHANIC): Repeat hepatic function panel at last appointment showed normal LFT's. Assessment & Plan (08/22/2019 1:34 PM TRUCK BENCH MECHANIC): Pt says Mariel Mercedes had drawn labs in Jun 2019 and saw elevated alk phos. Appears alk phos then was 246. Will repeat hepatic function panel today. Nausea 08/22/2019 09/19/2019 Assessment & Plan (08/22/2019 1:35 PM TRUCK BENCH MECHANIC): Having some nausea with BM but no vomiting. Likely related to exacerbation of colitis. Diarrhea 08/22/2019 09/19/2019 Assessment & Plan (08/22/2019 1:33 PM TRUCK BENCH MECHANIC): Pt says she can have up to [...] on file Legal Sex Female 8:33 AM TRUCK BENCH MECHANIC Gender Identity Female 05/14/2024 12:29 PM CDT [...] Procedure Name Priority Date/Time Associated Diagnosis Comments COLONOSCOPY 11/20/2024 11:42 AM CDT HM PAP SMEAR WITH HPV Routine 01/02/2023 SCREENING MAMMOGRAM BILATERAL W GWYN Schedule Routine, Read Routine (OP [...] Recently Relevant to Health Maintenance Results * Colonoscopy (11/20/2024 11:42 AM CDT) Anatomical Region Laterality Modality Other Narrative Procedure Note Alexi Britt MD - 11/20/2024 11:42 AM CDT [facility] Patient Name: Ernestina Sullivan Procedure Date: 11/20/2024 11:42 AM Date of : 1955 Admit Type: Outpatient Age: 69 Gender: Female Attending MD: Alexi Britt M.D. Room: [facility] ENDOSCOPY ROOM 1 Note Status: Finalized [...] under direct vision. The Pediatric Colonoscope PCF-H190L [id number] was introducedthrough the anus and advanced to [...] 11:42 AM Procedure Code(s): --- Professional --- 92801, Colonoscopy, flexible; with control of bleeding, any method Diagnosis Code(s): --- Professional --- K64.8, Other hemorrhoids K55.20, Angiodysplasia of colon without hemorrhage CPT copyright 2020 [employer]. All rights reserved. The codes documented in this report are preliminary and upon director of loss prevention reviewmay be revised to meet current compliance requirements. Recognized by the [employer] for promoting quality [...] Dual x-ray absorptiometry (DEXA) was performed using [employer] system. GENERAL GUIDELINES: According to WHO guidelines, [...] Dual x-ray absorptiometry (DEXA) was performed using [employer] system. GENERAL GUIDELINES: According to WHO guidelines, [...] last revised on 2019. Testing performed by: [facility], [address] [place] [address], [place]., [address] Blood specimen (specimen) 12/23/2019 10:12 AM CDT 12/23/2019 1:46 PM CDT Vaishnavi Crum DO LAB MICROBIOLOGY - GENERAL ORDERABLES Final Result BLAINE HARPER (MYA) 1 [facility] Department [place] [address] from Last 3 Months or Most Recently Relevant to Health Maintenance Insurance [facility] [employer] Advance Directives For more information, please contact: [phone] * Full Code (Latest Code Status on [...] 9:10 AM 01/03/2019 4:13 PM Care Teams Salvage Worker Relationship Specialty Start Date End Date Jeny Ho PA [address] [place] [address] PCP - General Physician Band Tier 04/10/24 La Nena Figueroa NP Nurse Practitioner Gastroenterology 12/18/19 Darren Bower MD [address] [place] [address] Referring Physician Hematology and Oncology 12/18/19
--- OUTSIDE RECORDS SUMMARY | 2025-02-23 11:08 | XMS_ITS | Clinical Summary ---
Author Organization [facility] Facility Address [address] [address] Care Team Providers Care Sheet Cutter Name Role Phone Unavailable Primary Care Provider [...] of 1 - PCV) 01/11/2004 Influenza Vaccine (#1) 2025 Hepatitis B Vaccine Aged Out No longe r eligible based on patient's age to complete this topic
--- OUTSIDE RECORDS SUMMARY | 2025-02-23 11:08 | XMS_ITS | Encounter Summary ---
Author Organization [facility] Address [address] [place] [address] Care Team Providers Care Foxer Name Role Phone Card, La Nena Oliver NP Unavailable [phone] Darren Bower MD Unavailable Ekaterina Crum DO Primary Care Provider [phone] Jeny Ho Primary Care Provider Reason for Visit * Reason Onset Date Comments Scheduling Appointments 03/11/2020 Called f or DEXA appointment Encounter Details Date Type Department Care Team (Late st Contact Info) Description 03/11/2020 Telephone [facility] [address] [place] [address] Chayo Padilla RT Scheduling Appointments (Called for [...] on file Legal Sex Female 8:33 AM PRIMING POWDER PREMIX BLENDER Gender Identity Female 05/14/2024 12:29 PM CDT Sexual Orientation Straight 03/14/2020 8: 28 AM CDT documented as of this encounter Plan of Treatment Not on file documented as of this encounter Visit Diagnoses Not on filedocumented in this encounter Care Teams Foxer Relationship Specialty Start Date End Date Radames Ekaterina DO Fabián [address] [place] [address] PCP - General Family Medicine 12/18/19 04/09/24 Jeny Ho PA [address] [place] [address] PCP - General Physician Shower Doors And Panels Fabricator 04/10/24 La Nena Figueroa NP Nurse Practitioner Gastroenterology 12/18/19 Darren Bower MD [address] [place] [address] Referring Physician Hematology and Oncology 12/18/19 documented as of this encounter
--- OUTSIDE RECORDS SUMMARY | 2025-02-23 11:08 | XMS_ITS | Clinical Summary ---
Author Organization [facility] Address [address] [place] [address] Care Team Providers Care Health And Physical Education Professor Name Role Phone Card, La Nena Oliver NP Unavailable [phone] Darren Bower MD Unavailable Jeny Ho [...] 07/16/2022 Assessment & Plan (07/16/2022 7:04 PM CUSTOMER EXPERIENCE ASSOCIATE): X-ray of lumbar spine. Titrating dose of gabapentin. Referral to pain management Chronic neck pain 07/16/2022 Assessment & Plan (07/16/2022 7:04 PM CUSTOMER EXPERIENCE ASSOCIATE): X-ray the cervical spine. Will trial gabapentin to titrating dose of 302-3 times daily. Referral to pain management Gross hematuria 06/13/2022 Assessment & Plan (06/15/2022 8:13 PM CDT): Labs ordered, will follow. Dependent edema 04/13/2022 Personal history of colonic polyps 03/31/2022 Overview (03/31/2022): Added automatically from request for surgery [id number] Arthralgia of multiple sites 02/12/2022 Assessment & [...] Assessment & Plan (12/27/2020 2:53 PM CDT): Exjxi-op-kvitwj exercises encouraged. Handout given. Recommended physical therapy, [...] counseling. Assessment & Plan (07/16/2022 7:05 PM CUSTOMER EXPERIENCE ASSOCIATE): BMI Follow-up includes: exercise counseling. Assessment & [...] GI. Assessment & Plan (09/19/2019 1:19 PM CUSTOMER EXPERIENCE ASSOCIATE): Pt says abdominal pain, diarrhea, and nausea resolved a few days after last office visit and did not need to take budesonide. She is taking Lialda 2.4 g daily and doing well. Continue current regimen. Assessment & Plan (08/22/2019 1:31 PM CUSTOMER EXPERIENCE ASSOCIATE): Pt restarted on medication about 3 weeks [...] 06/16/2022 LABPLAT 439 (H) 06/16/2022 [facility] states that it was normal ED wwill need to get records from [place] Assessment & Plan (06/15/2022 8:16 PM CDT): [...] hematology. Assessment & Plan (08/22/2019 1:04 PM CUSTOMER EXPERIENCE ASSOCIATE): EGD and colonoscopy ruled out GI bleed as cause for anemia. Pt says she follows with Dr. Bower at [facility] for her anemia. No further workup [...] (03/31/2022): Added automatically from request for surgery [id number] Elevated blood uric acid level 01/13/2022 02/10/2022 [...] 12/18/2019 Assessment & Plan (09/19/2019 12:39 PM CUSTOMER EXPERIENCE ASSOCIATE): Repeat hepatic function panel at last appointment showed normal LFT's. Assessment & Plan (08/22/2019 1:34 PM CUSTOMER EXPERIENCE ASSOCIATE): Pt says Mariel Mercedes had drawn labs in Jun 2019 and saw elevated alk phos. Appears alk phos then was 246. Will repeat hepatic function panel today. Nausea 08/22/2019 09/19/2019 Assessment & Plan (08/22/2019 1:35 PM CUSTOMER EXPERIENCE ASSOCIATE): Having some nausea with BM but no vomiting. Likely related to exacerbation of colitis. Diarrhea 08/22/2019 09/19/2019 Assessment & Plan (08/22/2019 1:33 PM CUSTOMER EXPERIENCE ASSOCIATE): Pt says she can have up to [...] UPPER GASTROINTESTINAL ENDOSCOPY 5 yrs ago in [place] POLYPECTOMY CARPAL TUNNEL RELEASE 08/20/1999 - 08/19/2000 Right CHOLECYSTECTOMY 08/20/2001 - 08/19/2002 TUBAL LIGATION 08/20/1997 - 08/19/1998 COLONOSCOPY 08/20/2013 - 08/19/2014 in [place] UMBILICAL HERNIA REPAIR 06/20/2019 - 07/19/2019 CATARACT EXTRACTION 2020 NECK SURGERY 06/04/2024 Medical History Medical History Date Comments Smoking Ulcerative colitis (HCC) GERD (gastroesophageal reflux disease) Colon polyp Hypertension Depression Hyperlipidemia Anemia 2012 Anxiety 1986 Osteoporosis 2020 Family History Medical History Relation Name Comments Arthritis Brother 1 Lalito Portillo Dunsung Heart attack Brother 1 Lalito R [...] Relation Name Status Comments Brother 1 Lalito Portillo Dunsung Brother 2 Gildardo Vidal Dunsing Father Parker E Dunsing Maternal Grandmother Mery Prem Mother Chrissy E Dunsing Mother's Sister Rebecca Schafer Paternal Grandmother Mohini Coles Dunsing Social History [...] on file Legal Sex Female 8:33 AM CUSTOMER EXPERIENCE ASSOCIATE Gender Identity Female 05/14/2024 12:29 PM CDT [...] history exists Well Visit 65+ 06/13/2023 06/13/2022, 09/2020, 04/19/2020 Depression Screening 07/12/2023 07/12/2022, 05/15/2022, [...] 11/20/2024, 07/29/2019 Colon Cancer Screening-DNA Stool Discontinued 11/21/19 25, 07/29/2019 Colon Cancer Screening-FIT Discontinued 11/20/2024, Colon [...] Female Attending MD: Alexi Britt M.D. Room: [facility] END[facility]COPY ROOM 1 Note Status: Finalized [...] under direct vision. The Pediatric Colonoscope PCF-H190L [id number] was introducedthrough the anus and advanced to [...] 11:42 AM Procedure Code(s): --- Professional --- 88358, Colonoscopy, flexible; with control of bleeding, any method Diagnosis Code(s): --- Professional --- K64.8, Other hemorrhoids K55.20, Angiodysplasia of colon without hemorrhage CPT copyright 2020 [employer]. All rights reserved. The codes documented in this report are preliminary and upon utility bag assembler reviewmay be revised to meet current compliance requirements. Recognized by the [employer] for promoting quality [...] receiving long-term steroid therapy. Electronically signed by: Beba Marina 03/12/2020 10:53 AM CDT COMPLETION DATE: 03/12/2020 10:30 AM ORDERING HEALTHCARE PROVIDER: VAISHNAVI CRUM STUDY DESCRIPTION: DEXA AXIAL SKELETON BONE DENSITY 1 OR MORE SITES CLINICAL INDICATIONS: screening osteoporosis. COMPARISON: None TECHNIQUE: Dual x-ray absorptiometry (DEXA) was performed using Nomacorc system. GENERAL GUIDELINES: According to WHO guidelines, [...] Dual x-ray absorptiometry (DEXA) was performed using Nomacorc system. GENERAL GUIDELINES: According to WHO guidelines, [...] therapy. Electronically signed by: Pietro Hagen M.D. us Vaishnavi Crum DO IMG DXA PROCEDURES Final R esult * Hepatitis C antibody (12/23/2019 10:12 AM CDT) Hep C Ab Nonreactive Nonreactive [facility] ([place]) Comment: Interpretive Data Nonreactive: Antibodies to HCV [...] last revised on 2019. Testing performed by: [facility], [address] [place] [address], [place]., [address] Blood specimen (specimen) 12/23/2019 10:12 AM CDT 12/23/2019 1:46 PM CDT Vaishnavi Crum DO LAB MICROBIOLOGY - GENERAL ORDERABLES Final Result [facility] ([place]) [facility] Department [place] [address] from Last 3 Months or Most Recently Relevant to Health Maintenance Insurance [facility] Advance Directives For more information, please contact: [phone] * Full Code (Latest Code Status on [...] 9:10 AM 01/03/2019 4:13 PM Care Teams Health And Physical Education Professor Relationship Specialty Start Date End Date Jeny Ho PA [address] [place] [address] PCP - General Physician [facility] 04/10/24 La Nena Figueroa NP Nurse Practitioner Gastroenterology 12/18/19 Darren Bower MD [address] [place] [id number] Referring Physician Hematology and Oncology 12/18/19
--- OUTSIDE RECORDS SUMMARY | 2025-02-23 11:08 | XMS_ITS | Clinical Summary ---
Author Organization [facility] Address [address] [place] [address] Phone Care Team Providers Care Yard Switcher Name Role Phone Ekaterina Crum Primary Care Provider [phone] Allergies No known active allergies Medications omeprazole [...] season) 2024 07/26/2021, 12/03/2020, 11/05/2020 Influenza Immunization (#1) 04/20/202505/20, 05/20/2020, 06/26/2019, Additional history exists Respiratory Syncytial [...] Type Associated Problems Recent Progress Patient-Stated? Author [facility] Health On track( 10:56 AM BALL RACKER) Yes Siria Dominguez LCSW Note: I want to feel less angry towards my step-daughter Goal Reviewed with: patient Readiness to change: Ready to change Department associated with goal: [facility] Steps to achieve goal: Patient to be educated on stages of grief and tasks of mourning Patient to be educated/counseled on coping with anger [facility] Health On track( 020 10:56 AM BALL RACKER) No Siria Dominguez LCSW Note: Goal: Patient will be able to report decreased grieving to a manageable level Goal Reviewed with: patient Readiness to change: Ready to change Department associated with goal: [facility] Steps to achieve goal: Patient counseled on stages of grief and tasks of mourning Patient counseled on new holiday traditions and coping with the holidays with new grief issues Procedures Procedure Name Priority Date/Time Associated Diagnosis Comments COLONOSCOPY Routine 07/29/2019 CT CHEST SCREENING WO [...] Gian Shah M.D. RL: MITZY Report ID: [id number] Reading Location: [place] [address] Procedure Note Gian Shah MD - 05/12/2019 [...] 2:11 PM - Electronically signed by Gian SolomonD. RL: MITZY Report ID: [id number] Reading Location: [id number] IMPRESSION: 1. Indeterminate 5 mm ground-glass nodule [...] Maintenance Insurance MEDICARE C [employer] Care Teams Yard Switcher Relationship Specialty Start Date End Date Ekaterina Crum DO [address] [place] [address] DR BONILLA [address] [place] [id number] PCP - General Family Medicine 10/11/20
== END 2025-02-20 09:25 | disposition home or self-care (01) ==
LOC: ANHSURGERY 16:26 → ANH3MEDSUR 16:27
PROVIDERS: Admitting Provider Neurological Surgery; Visit Provider Neurological Surgery
PROC: (CPT 22612; principal; 2025-02-18 10:00)
DX: M43.16 Spondylolisthesis, lumbar region (principal); M48.062 Spinal stenosis, lumbar region with neurogenic claudication; M81.0 Age-related osteoporosis without current pathological fracture; J44.9 Chronic obstructive pulmonary disease, unspecified; I10 Essential (primary) hypertension; M10.9 Gout, unspecified; F32.A Depression, unspecified; K21.9 Gastro-esophageal reflux disease without esophagitis; K50.90 Crohn's disease, unspecified, without complications; E66.9 Obesity, unspecified; Z68.35 Body mass index [BMI] 35.0-35.9, adult; Z79.899 Other long term (current) drug therapy; Z87.891 Personal history of nicotine dependence; Z98.51 Tubal ligation status
CPT/HCPCS: 22612; 22614; 22842; 20936; 61783; 63047; 63048; 36415; 86850; 86900; 86901; 97161; 97165; 97535; 99199; A9270; C1713; J0690; J1100; J2405; J2704; J3010; J7030; J7120